=== PATIENT | female | born 1960 | race Caucasian/White ===

== ENCOUNTER 2017-07-31 06:40 | Observation (INO) | payer MEDICAID, SELFPAY ==
[~2017-07-31] VITALS: Ht 162.6 cm; Wt 63.6 kg
[2017-07-31] MEDS ORDERED: ALBU83IN INH (06:51)
[2017-07-31 07:57] LABS: BASO # 0.1 10^3/uL (0.0-0.2); BASO % 0.8 % (0.0-1.0); EOS # 0.2 10^3/uL (0.0-0.50); EOS % 2.5 % (0.0-3.0); IMMATURE GRANULOCYTE % 0.4 % (0-0); LYMPH # 1.5 10^3/uL (1.5-4.5); MEAN CORPUSCULAR HEMOGLOBIN 34.6 pg (27.0-33.0); MEAN CORPUSCULAR VOLUME 104.8 fl (80.0-96.0); MONO # 0.6 10^3/uL (0.0-0.8); MONO % 8.8 % (0.0-5.0); NEUTROPHILS # 4.8 10^3/uL (1.8-7.7); NEUTROPHILS % 66.5 % (36.0-66.0); PLATELET COUNT, AUTOMATED 229 10^3/uL (150-450); RED CELL DISTRIBUTION WIDTH 13.6 % (11.5-14.5); WHITE BLOOD COUNT 7.2 10^3/uL (4.0-10.0)
[2017-07-31] MEDS: IPRATROPIUM 0.5MG/ALBUTEROL 2.5MG INH SOL UD 3ML (DUONEB)(J7620) NEB PRN ×3 (07:58→09:00)
[2017-07-31] MEDS ORDERED: methylPREDNISolone INJ 125 MG/2 ML VIAL (J2930) IV ONE (08:00)
[2017-07-31 08:09] LABS: ANION GAP 6 MEQ/L (8-16); BLOOD UREA NITROGEN 6 MG/DL (7-18); CALCIUM LEVEL 9.2 MG/DL (8.5-10.1); CARBON DIOXIDE LEVEL 32 MEQ/L (21-32); CHLORIDE LEVEL 103 MEQ/L (98-107); GLOMERULAR FILTRATION RATE > 60.0 (>51); GLUCOSE, FASTING 120 MG/DL (70-105); POTASSIUM SERUM 4.3 MEQ/L (3.5-5.1); SODIUM LEVEL 141 MEQ/L (136-145)
[2017-07-31 08:15] LABS: ABG BASE EXCESS 4.5 (-2.0-2.0); ABG HCO3 30.7 MEQ/L (22.0-26.0); ABG PARTIAL PRESSURE CO2 51.4 mmHg (35.0-45.0); ABG PARTIAL PRESSURE O2 68.9 mmHg (75.0-100.0); ABG STANDARD HCO3 28.5 MEQ/L (22.0-26.0); ABG TOTAL CO2 32.3 MEQ/L (22.0-29.0); ABG pH (ARTERIAL) 7.394 UNITS (7.350-7.450)
--- NOTE | 2017-07-31 09:02 | REP ---
CHEST, SINGLE VIEW: There is no evidence of acute infiltrate. No pleural effusion is seen. The heart is normal in size. The mediastinal silhouette is unremarkable. The visualized osseous structures are intact. IMPRESSION: No acute pulmonary disease. Signed by Emmanuel Barajas MD 07/31/2017 05:19 P
[2017-07-31] MEDS ORDERED: GUAI1TAB PO (09:23)
[2017-07-31] MEDS ORDERED: ALEV220T26 PO (09:23)
[2017-07-31] MEDS ORDERED: OXAZEPAM 10 MG CAP PO PRN (10:30)
[2017-07-31] MEDS ORDERED: ONDANSETRON 4MG/2ML VIAL (J2405) IV PRN (10:30)
[2017-07-31] MEDS ORDERED: IPRATROPIUM 0.5MG/ALBUTEROL 2.5MG INH SOL UD 3ML (DUONEB)(J7620) NEB PRN (10:30)
[2017-07-31] MEDS ORDERED: ACETAMINOPHEN TAB 650MG DOSE (2X325MG) PO PRN (10:30)
[2017-07-31 10:43] LABS: ALBUMIN 4.2 GM/DL (3.2-5.2); ALBUMIN/GLOBULIN RATIO 1.45 (1.00-1.93); ALKALINE PHOSPHATASE 78 U/L (45-117); ALT/SGPT 29 U/L (12-78); AST/SGOT 23 U/L (15-37); BILIRUBIN,DIRECT 0.2 MG/DL (0.0-0.2); BILIRUBIN,TOTAL 0.8 MG/DL (0.2-1.0); TOTAL PROTEIN 7.1 GM/DL (6.4-8.2)
--- NOTE | 2017-07-31 10:55 | HPE ---
DATE OF ADMISSION: 07/31/2017 PRIMARY CARE PROVIDER: Dr. Umaña HISTORY OF PRESENT ILLNESS: This patient is a 57-year-old female with the past medical history significant for asthma. She presented to [facility] on 07/31/2017 for worsening shortness of breath. The patient stated 3 days ago, the patient had worsening of breathing. The patient was noted to have increased cough, difficulty getting air in and out of her lungs. The patient also noted starting having brownish/greenish sputum production. Denied any fever or chills. The patient did noticed a right-sided chest pain. The pain is located on the right just medial to the armpit. The pain is achy and has been persistent for the past few days. The pain has no radiation, worsening with cough. Deep breathing does not affect the pain intensity. The pain can be reproduced by pressure to the area. 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 PAST MEDICAL HISTORY: Asthma. PAST SURGICAL HISTORY: Dilation and curettage. ALLERGIES: No known drug allergies. HOME MEDICATIONS: Albuterol inhalation three times a day as needed. SOCIAL HISTORY: The patient smokes one pack daily since 15 years old. The patient drinks rum and Coke at leas 2-3 glasses every day. The patient used to use cocaine in the 80s. REVIEW OF SYSTEMS: General: No fever. No chills. HEENT: No visual or auditory changes. Cardiovascular: The patient still complaining about achy mild chest pain right below the right arm pit. This has been persistent for the past few days. The patient does complain about palpitations at this moment. Respiratory: Increased shortness of breath for the past 3 days associated with sputum production. History of asthma. GI: No nausea. No vomiting. No abdominal pain. Musculoskeletal: Denies any other muscle pain or joint pain. Neurological: Denies any numbness or tingling. OBJECTIVE: VITAL SIGNS: Temperature is 98.1, pulse 106, respirations 22, blood pressure 121/58, pulse ox is 93% with 2 liters nasal cannula. GENERAL: Mild distress secondary to persistent shortness of breath. Alert and oriented times three. HEENT: Positive accessory muscle use. Normocephalic, atraumatic. CARDIOVASCULAR: Tachycardic. Positive S1, S2. LUNGS: Positive expiratory wheezes bilaterally. No crackles. ABDOMEN: Soft, nontender, nondistended. Bowel sounds present. No rebound. No guarding. EXTREMITIES: No edema. No sign of cyanosis. NEURO: Sensation to fine touch grossly intact. Muscle strength 5/5. LABORATORY DATA: WBC 7, hemoglobin 14.5, hematocrit 43.9, platelet count is 229. Sodium 141, potassium 4.3, chloride 103, carbon dioxide 32, BUN 6, creatinine 0.6. GFR greater than 60, fasting glucose 120, lactic acid 0.6, calcium 9.2, troponin I is less than 0.02, TSH 1. 23. ABG shows a pH of 7.394, pCO2 51.4, pO2 68.9, SGOT 30.7. Microbiology: Blood cultures pending times two. Imaging Study: Chest x-ray showed no acute pulmonary disease. ASSESSMENT/PLAN: 1. Acute respiratory distress: The patient admitted to medical/surgical floor on an inpatient status. The patient's respiratory distress is most likely secondary to asthma exacerbation. The patient received multiple rounds of breathing treatments. During examination, the patient still has significant bilateral respiratory wheezes. Continue IV steroids. Continue breathing treatments as needed. I will followup with a respiratory panel. 2. Alcohol abuse: At baseline, patient used to drink rum and Coke at least two to three glasses every day. The patient with have Serax as needed for any type of withdrawal symptoms. The patient will be given multivitamin, folic acid and thiamine. 3. Tobacco abuse: The patient will be on nicotine patch. 4. Deep venous thrombosis prophylaxis on heparin. MTDD
[2017-07-31] MEDS: THIAMINE 100 MG TAB PO SCH (10:56)
[2017-07-31] MEDS: MULTIVITAMINS/MINERALS THERAP 1 TAB PO SCH (10:56)
[2017-07-31] MEDS: FOLIC ACID 1 MG TAB PO SCH (10:57)
[2017-07-31] MEDS: NICOTINE 21MG/24HR 1 EA TRANSDERMAL TD SCH (10:57)
[2017-07-31] MEDS: HEPARIN SOD (PORCINE) 5000 UNITS/ML VIAL SC SCH ×2 (14:00→20:59)
[2017-07-31 14:45] VITALS: BP 138/74
[2017-07-31] MEDS ORDERED: methylPREDNISolone INJ 125 MG/2 ML VIAL (J2930) IV SCH (20:00)
[2017-07-31] MEDS: predniSONE 20 MG TAB PO SCH (20:59)
[2017-07-31 22:00] VITALS: BP 140/74
[2017-08-01] MEDS: HEPARIN SOD (PORCINE) 5000 UNITS/ML VIAL SC SCH (05:07)
[2017-08-01 06:00] VITALS: BP 138/72
[2017-08-01 06:22] LABS: MEAN CORPUSCULAR HEMOGLOBIN 34.6 pg (27.0-33.0); MEAN CORPUSCULAR HGB CONC 33.1 g/dl (32.0-36.5); MEAN CORPUSCULAR VOLUME 104.5 fl (80.0-96.0); RED CELL DISTRIBUTION WIDTH 13.6 % (11.5-14.5); WHITE BLOOD COUNT 16.1 10^3/uL (4.0-10.0)
[2017-08-01 06:42] LABS: ANION GAP 2 MEQ/L (8-16); BLOOD UREA NITROGEN 9 MG/DL (7-18); CALCIUM LEVEL 9.1 MG/DL (8.5-10.1); CARBON DIOXIDE LEVEL 33 MEQ/L (21-32); CHLORIDE LEVEL 105 MEQ/L (98-107); CREATININE FOR GFR 0.57 MG/DL (0.55-1.02); GLOMERULAR FILTRATION RATE > 60.0 (>51); GLUCOSE, FASTING 129 MG/DL (70-105); MAGNESIUM LEVEL 2.2 MG/DL (1.8-2.4); POTASSIUM SERUM 4.1 MEQ/L (3.5-5.1); SODIUM LEVEL 140 MEQ/L (136-145)
[2017-08-01] MEDS: NICOTINE 21MG/24HR 1 EA TRANSDERMAL TD SCH (09:12)
[2017-08-01] MEDS: predniSONE 20 MG TAB PO SCH (09:12)
[2017-08-01] MEDS: MULTIVITAMINS/MINERALS THERAP 1 TAB PO SCH (09:13)
[2017-08-01] MEDS: FOLIC ACID 1 MG TAB PO SCH (09:13)
[2017-08-01] MEDS: THIAMINE 100 MG TAB PO SCH (09:13)
--- NOTE | 2017-08-01 09:17 | ECGEPIP ---
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
[2017-08-01] MEDS ORDERED: VITMTA PO (10:18)
[2017-08-01] MEDS ORDERED: FOLI1TAB4 PO (10:18)
[2017-08-01] MEDS ORDERED: THIA100TA PO (10:18)
[2017-08-01] MEDS ORDERED: PRED10TA2 PO (10:18)
[2017-08-01] MEDS ORDERED: NICO21PAT TD (10:18)
--- NOTE | 2017-08-01 20:41 | DSES ---
DATE OF ADMISSION: 07/31/2017 DATE OF DISCHARGE: 08/01/2017 PRIMARY CARE PROVIDER: Dr. Umaña DISCHARGE DIAGNOSES: 1. Asthma exacerbation secondary to human rhinovirus. 2. Human rhinovirus infection. 3. Alcohol abuse. 4. Tobacco abuse. 5. Leukocytosis secondary to steroid use. HOSPITALIZATION COURSE: The patient is a 57-year-old female who presented to [facility] on 07/31/2017 with progressive worsening of shortness of breath. The patient also noted to have increased wheeze with sputum production. The patient was determined to have asthma exacerbation. The patient was admitted to medical/surgical. The patient was started on as needed breathing treatments and IV steroids. The patient symptoms showed significant improvement. The patient did not require oxygen supplement. In the 24 hours after admission, on 08/01/2017, the patient is determined medically stable for discharge with recommendation to continue tapering steroids, and the patient is strongly recommended to decrease alcohol consumption and also smoking. The patient is instructed to followup with the primary care provider in 1 week. During the diagnostic workup, respiratory panel was ordered. The results came back positive for human rhinovirus/enterovirus. OBJECTIVE: VITAL SIGNS: Temperature is 97.6, pulse 106, respiratory rate is 19, blood pressure is 138/72, pulse oximetry is 98% on room air. LABORATORY DATA: WBC 16.1, hemoglobin 14.5, hematocrit 43.8, platelet count is 239. Sodium is 140, potassium 4.1, chloride is 105, carbon dioxide 33, BUN 9, creatinine 0.57, GFR greater than 60, fasting glucose 129, calcium is 9.1, magnesium 2.2, TSH is 1.23. AST 23, ALT 29, alkaline phosphatase 78, troponin I is less than 0.02, total protein 7.1, albumin 4.2. Microbiology: Blood cultures, preliminary results shows no growth after 24 hours times two sets. Respiratory panel is positive for human rhinovirus/enterovirus. IMAGING STUDIES: Chest x-ray showed no acute pulmonary disease. DISCHARGE MEDICATIONS: - folic acid 1 mg by mouth daily - multivitamin one tablet by mouth daily - thiamine 100 mg by mouth daily - prednisone tapering dose - nicotine patch transdermal daily DISCHARGE INSTRUCTIONS: Discontinue line. Discharge home. Activity as tolerated. Diet as tolerated. Recommend patient to decrease the amount of alcohol consumption and tobacco use. The patient is instructed to finish the steroid taper. The patient is instructed to followup with the primary care provider, Dr. Umaña, in 1 week. Discharge condition: Fair. Discharge time: Greater than 30 minutes.
== END 2017-08-01 11:20 | disposition home or self-care (01) ==
LOC: M ED 06:40 → M ED INP 10:18 → M MSPAV 14:26
PROVIDERS: ADMIT Internal Medicine; ATTEND Internal Medicine
DX: J45.901 Unspecified asthma with (acute) exacerbation (principal); B34.8 Other viral infections of unspecified site; F10.10 Alcohol abuse, uncomplicated; F17.210 Nicotine dependence, cigarettes, uncomplicated; D72.829 Elevated white blood cell count, unspecified; Z79.51 Long term (current) use of inhaled steroids; Z79.52 Long term (current) use of systemic steroids; Z79.899 Other long term (current) drug therapy
CPT/HCPCS: 36415; 36600; 71010; 80048; 80076; 82550; 82553; 82803; 83605; 83735; 84443; 85025; 85027; 87040; 87070; 87077; 87186; 87205; 87486; 87581; 87633; 87798; 93005; 93041; 94640; 96374; 99285; J2930

== ENCOUNTER 2018-12-23 15:45 | Emergency (ER) | payer MEDICAID, OTHER ==
[~2018-12-23] VITALS: Ht 157.5 cm; Wt 61.4 kg
[~2018-12-23 15:45] MED LIST: ALBU83IN INH; ALEV220T26 PO; FOLI1TAB11 PO; GUAI1TAB PO; NICO21PAT TD; PRED10TA2 PO; THIA100TA PO; VITMTA PO
[2018-12-23] MEDS ORDERED: FLUT1INH2 INH (16:27)
[2018-12-23] MEDS ORDERED: NS 1,000 ML IV SCH (17:05)
[2018-12-23] MEDS ORDERED: ASPIRIN 81 MG CHEW TABLET PO ONE (17:15)
[2018-12-23] MEDS ORDERED: GI COCKTAIL 50ML BTL(HYOSCYAMINE/MAALOX/LIDOCAINE VISCOUS)(1:3:1) PO ONE (17:15)
--- NOTE | 2018-12-23 17:33 | REP ---
Chest two views HISTORY: Chest pain Comparison: 02/18/2015 The lungs are clear. The heart is normal in size. The pulmonary vasculature is normal in appearance. The bony structure is intact. IMPRESSION: No acute disease. Electronically Signed by Edmond Bond MD 12/23/2018 05:25 P
[2018-12-23 17:35] LABS: BASO # 0.1 10^3/uL (0.0-0.2); BASO % 0.7 % (0.0-1.0); EOS # 0.2 10^3/uL (0.0-0.50); EOS % 1.9 % (0.0-3.0); HEMATOCRIT 41.1 % (36.0-47.0); HEMOGLOBIN 13.4 g/dl (12.0-15.5); LYMPH # 1.9 10^3/uL (1.5-4.5); LYMPH % 20.9 % (24.0-44.0); MEAN CORPUSCULAR HEMOGLOBIN 35.4 pg (27.0-33.0); MEAN CORPUSCULAR HGB CONC 32.6 g/dl (32.0-36.5); MEAN CORPUSCULAR VOLUME 108.7 fl (80.0-96.0); MONO # 0.9 10^3/uL (0.0-0.8); MONO % 9.6 % (0.0-5.0); NEUTROPHILS % 66.6 % (36.0-66.0); PLATELET COUNT, AUTOMATED 326 10^3/uL (150-450); RED BLOOD COUNT 3.78 10^6/uL (4.00-5.40)
[2018-12-23 17:47] LABS: INR 1.06; PROTHROMBIN TIME 13.9 SECONDS (12.1-14.4)
[2018-12-23 18:15] LABS: ALBUMIN 3.3 GM/DL (3.2-5.2); ALT/SGPT 23 U/L (12-78); BILIRUBIN,DIRECT 0.2 MG/DL (0.0-0.2); BILIRUBIN,TOTAL 0.7 MG/DL (0.2-1.0); BLOOD UREA NITROGEN 11 MG/DL (7-18); CALCIUM LEVEL 8.3 MG/DL (8.5-10.1); CARBON DIOXIDE LEVEL 34 MEQ/L (21-32); CHLORIDE LEVEL 102 MEQ/L (98-107); CK-MB VALUE MASS < 1.0 NG/ML (<3.6); CPK CREATINE PHOSPHOKINASE 45 U/L (26-192); CREATININE FOR GFR 0.58 MG/DL (0.55-1.30); GLOMERULAR FILTRATION RATE > 60.0 (>51); GLUCOSE, FASTING 98 MG/DL (70-100); MB/CK RELATIVE INDEX 2.22 (< OR =4); NT-PRO BNP 450 PG/ML (<125); SODIUM LEVEL 141 MEQ/L (136-145); TOTAL PROTEIN 6.5 GM/DL (6.4-8.2); TROPONIN I 0.02 NG/ML (< 0.10)
[2018-12-23 18:45] VITALS: BP 130/80
--- NOTE | 2018-12-23 21:03 | ECGEPIP ---
Stationary ECG Study [facility] - ED Test Date: 2018-12-23 Pat Name: CLARA GUZMAN Department: Room: - Gender: F Sample Hand: sahra : 1960 Requested By: Brodie Ochoa Order Number: [id number] Reading MD: Elida Skinner Measurements Intervals [place] Rate: 99 P: 85 SD: 137 QRS: 51 QRSD: 84 T: 61 QT: 341 QTc: 439 Interpretive Statements SINUS RHYTHM NSTTW ABNORMALITY DECREASED RATE 07/31/17 Electronically Signed On 12-23-2018 21:03:42 EST by Elida Skinner
== END 2018-12-23 19:04 | disposition home or self-care (01) ==
LOC: M ED 15:45
DX: R07.89 Other chest pain (principal); R60.0 Localized edema; R06.02 Shortness of breath; I10 Essential (primary) hypertension; J98.4 Other disorders of lung; F17.200 Nicotine dependence, unspecified, uncomplicated; Z91.040 Latex allergy status

== ENCOUNTER → 2019-05-15 | Outpatient (CLI) | payer OTHER ==
[~2019-05-15] MED LIST changes: +FLUT1INH2 INH
--- NOTE | 2019-05-16 01:44 | REP ---
Clinical: Lung screening. History nicotine dependence. Comparison: 02/18/2015 Technique: Axial low-dose noncontrast images from the thoracic inlet to the upper abdomen using lung screening technique. Findings: The lung keller are well-aerated. No consolidation, significant nodule or mass lesion is appreciated. 4 mm noncalcified nodule in the periphery of the left lower lobe (image 74) remains stable compared to 2015. No pleural effusion/reaction or pneumothorax. Tracheobronchial tree is patent. Mediastinum demonstrates mild atherosclerotic changes of the coronary arteries without cardiomegaly. Impression: Lung-RADS category II. No significant nodule or suspicious abnormality. Management recommendations include annual low-dose CT evaluation. Electronically Signed by Hany Meehan MD 05/16/2019 01:36 A
== END ==
LOC: M RAD 14:15
PROVIDERS: ATTEND Physician Assistant
DX: Z12.2 Encounter for screening for malignant neoplasm of respiratory organs (principal); F17.218 Nicotine dependence, cigarettes, with other nicotine-induced disorders

== ENCOUNTER → 2020-07-01 | Outpatient (REF) | payer OTHER ==
[2020-07-06 10:08] LABS: A1A FOR PHENOTYPE 154 mg/dL (101-187)
== END ==
LOC: M LAB REF 17:14
PROVIDERS: ATTEND Physician Assistant
DX: J44.9 Chronic obstructive pulmonary disease, unspecified (principal)

== ENCOUNTER → 2021-07-28 | Outpatient (CLI) | payer OTHER ==
--- NOTE | 2021-07-28 12:16 | REP ---
INDICATION: ABNORMAL FINDING OF LUNG FIELD. COMPARISON: Prior CT studies include April 21, 2021, January 06, 2021, June 25, 2020, May 15, 2019, and February 18, 2015. TECHNIQUE: Helical scanning is acquired. 3 mm axial images are generated. Coronal and sagittal MPR and coronal MIP images are generated. 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 On axial CT images there is no evidence of pleural or pericardial effusion. No hilar or mediastinal mass or adenopathy is observed. Normal adrenal glands are seen. Some vascular calcification is noted. The visualized upper abdominal structures are unremarkable. There is a stable noncalcified 6 mm pulmonary nodule in the left lower lobe visible on page 73 of 109 in series 3 of today's study. This is unchanged from all the prior studies dating back to 2014 and is benign. The recently identified infiltrate in the right lower lobe has resolved. This consistent with inflammatory change. No new infiltrate is seen. No new pulmonary nodule is seen. No lung mass is observed. No endotracheal abnormality is seen. Bone window settings show no bony destructive lesion. IMPRESSION: No acute cardiopulmonary disease. <Electronically signed by Devang Dubois > 07/28/21 1216
== END ==
LOC: M PLAIMG 11:16
PROVIDERS: ATTEND Physician Assistant
DX: R91.8 Other nonspecific abnormal finding of lung field (principal); F17.218 Nicotine dependence, cigarettes, with other nicotine-induced disorders

== ENCOUNTER 2022-02-02 14:45 | Inpatient (IN) | payer OTHER ==
[~2022-02-02] VITALS: Ht 162.6 cm; Wt 74.6 kg
[2022-02-02] MEDS ORDERED: dexameTHASONE 20MG/5ML VIAL (J1100 PER 1MG) IV ONE (16:15)
[2022-02-02] MEDS: IPRATROPIUM 0.5MG/ALBUTEROL 2.5MG INH SOL UD 3ML (DUONEB) NEB SCH ×3 (16:23→16:56)
[2022-02-02 16:25] LABS: BASO # 0.1 10^3/uL (0.0-0.2); EOS # 0.1 10^3/uL (0.0-0.5); EOS % 1.5 % (0.0-3.0); HEMATOCRIT 39.9 % (36.0-47.0); HEMOGLOBIN 12.8 g/dl (12.0-15.5); LYMPH # 1.5 10^3/uL (1.5-5.0); LYMPH % 18.3 % (24.0-44.0); MEAN CORPUSCULAR HEMOGLOBIN 34.9 pg (27.0-33.0); MEAN CORPUSCULAR HGB CONC 32.1 g/dl (32.0-36.5); MEAN CORPUSCULAR VOLUME 108.7 fl (80.0-96.0); MONO # 0.7 10^3/uL (0.0-0.8); MONO % 8.8 % (2.0-8.0); NEUTROPHILS # 5.7 10^3/uL (1.5-8.5); PLATELET COUNT, AUTOMATED 238 10^3/uL (150-450); RED BLOOD COUNT 3.67 10^6/uL (4.00-5.40); WHITE BLOOD COUNT 8.1 10^3/uL (4.0-10.0)
[2022-02-02 16:48] LABS: CK-MB VALUE MASS 1.2 NG/ML (<3.6); MB/CK RELATIVE INDEX 2.14 (< OR =4)
[2022-02-02] MEDS ORDERED: FUROSEMIDE 40MG/4ML VIAL (J1940) IV ONE (17:25)
[2022-02-02] MEDS ORDERED: guaiFENesin SYRUP 200MG 10ML UDC PO PRN (18:10)
[2022-02-02] MEDS ORDERED: ARNU1INH3 INH (18:45)
[2022-02-02] MEDS ORDERED: ALBU8.5H INH (18:45)
[2022-02-02] MEDS ORDERED: STIO1AER INH (18:45)
[2022-02-02] MEDS ORDERED: HOME MED LIST COMPLETE! XX SCH (18:50)
[2022-02-02 20:20] VITALS: BP 132/63
[2022-02-02] MEDS: HEPARIN SOD (PORCINE) 5000UNITS/ML 1ML VIAL/SYRINGE SC SCH ×2 (21:00→22:00)
[2022-02-02] MEDS: cefTRIAXone SOD 1 GM in D5W MINI-BAG PLUS 50 ML IV SCH (22:00)
[2022-02-02] MEDS: DOXYCYCLINE HYCLATE 100 MG in D5W MINI-BAG PLUS 100 ML IV SCH (22:59)
[2022-02-03] VITALS (7 sets, daily range): BP systolic 110–137; BP diastolic 56–83
[2022-02-03 05:40] LABS: HEMATOCRIT 42.3 % (36.0-47.0); HEMOGLOBIN 13.5 g/dl (12.0-15.5); MEAN CORPUSCULAR HEMOGLOBIN 34.6 pg (27.0-33.0); MEAN CORPUSCULAR HGB CONC 31.9 g/dl (32.0-36.5); MEAN CORPUSCULAR VOLUME 108.5 fl (80.0-96.0); PLATELET COUNT, AUTOMATED 254 10^3/uL (150-450); WHITE BLOOD COUNT 9.4 10^3/uL (4.0-10.0)
[2022-02-03 06:00] LABS: BLOOD UREA NITROGEN 12 MG/DL (7-18); CALCIUM LEVEL 8.7 MG/DL (8.8-10.2); CARBON DIOXIDE LEVEL 37 MEQ/L (21-32); CHLORIDE LEVEL 101 MEQ/L (98-107); CREATININE FOR GFR 0.55 MG/DL (0.55-1.30); GLOMERULAR FILTRATION RATE > 60.0 (>45); GLUCOSE, FASTING 131 MG/DL (70-100); POTASSIUM SERUM 4.7 MEQ/L (3.5-5.1); SODIUM LEVEL 139 MEQ/L (136-145)
[2022-02-03 08:44] LABS: NT-PRO BNP 1631 PG/ML (<125)
[2022-02-03] MEDS: FUROSEMIDE 40MG/4ML VIAL (J1940) IV SCH ×2 (08:47→16:59)
[2022-02-03] MEDS: HEPARIN SOD (PORCINE) 5000UNITS/ML 1ML VIAL/SYRINGE SC SCH ×2 (08:47→20:13)
[2022-02-03] MEDS: NICOTINE 14 MG/24 HR TRANSDERMAL TD SCH ×2 (08:48→08:51)
[2022-02-03] MEDS: DOXYCYCLINE HYCLATE 100 MG in D5W MINI-BAG PLUS 100 ML IV SCH ×2 (09:34→21:29)
[2022-02-03] MEDS: cefTRIAXone SOD 1 GM in D5W MINI-BAG PLUS 50 ML IV SCH (20:13)
[2022-02-04] MEDS ORDERED: ACETAMINOPHEN TAB 650MG DOSE (2X325MG) PO ONE (03:45)
[2022-02-04 04:13] VITALS: BP 118/56
[2022-02-04 05:39] LABS: HEMATOCRIT 42.6 % (36.0-47.0); HEMOGLOBIN 13.4 g/dl (12.0-15.5); MEAN CORPUSCULAR HEMOGLOBIN 34.8 pg (27.0-33.0); MEAN CORPUSCULAR HGB CONC 31.5 g/dl (32.0-36.5); MEAN CORPUSCULAR VOLUME 110.6 fl (80.0-96.0); PLATELET COUNT, AUTOMATED 251 10^3/uL (150-450); RED BLOOD COUNT 3.85 10^6/uL (4.00-5.40)
[2022-02-04 06:00] LABS: BLOOD UREA NITROGEN 18 MG/DL (7-18); CALCIUM LEVEL 8.8 MG/DL (8.8-10.2); CARBON DIOXIDE LEVEL 41 MEQ/L (21-32); CHLORIDE LEVEL 98 MEQ/L (98-107); CREATININE FOR GFR 0.59 MG/DL (0.55-1.30); GLOMERULAR FILTRATION RATE > 60.0 (>45); GLUCOSE, FASTING 95 MG/DL (70-100); POTASSIUM SERUM 3.9 MEQ/L (3.5-5.1); SODIUM LEVEL 140 MEQ/L (136-145)
[2022-02-04 07:35] VITALS: BP 118/58
[2022-02-04] MEDS: DOXYCYCLINE HYCLATE 100 MG in D5W MINI-BAG PLUS 100 ML IV SCH (08:45)
[2022-02-04] MEDS: FUROSEMIDE 40MG/4ML VIAL (J1940) IV SCH (08:46)
[2022-02-04] MEDS: HEPARIN SOD (PORCINE) 5000UNITS/ML 1ML VIAL/SYRINGE SC SCH (08:46)
[2022-02-04] MEDS: NICOTINE 14 MG/24 HR TRANSDERMAL TD SCH (08:47)
[2022-02-04] MEDS ORDERED: CEFD300C41 PO (08:52)
[2022-02-04] MEDS ORDERED: MUCI1TAB16 PO (08:52)
[2022-02-04] MEDS ORDERED: DOXY-350 PO (08:52)
[2022-02-04] MEDS ORDERED: FURO20TA2 PO (08:52)
== END 2022-02-04 14:03 | disposition home or self-care (01) | DRG 194 ==
LOC: M ED 14:45 → M ED INP 17:37 → ENRESERV 18:39 → M PCU 20:20
PROVIDERS: ADMIT Internal Medicine; ATTEND Internal Medicine
DX: I50.9 Heart failure, unspecified (principal); Z99.81 Dependence on supplemental oxygen; F17.210 Nicotine dependence, cigarettes, uncomplicated; F10.11 Alcohol abuse, in remission; Z79.899 Other long term (current) drug therapy; Z91.040 Latex allergy status; Z91.14 Patient's other noncompliance with medication regimen; J44.1 Chronic obstructive pulmonary disease with (acute) exacerbation

== ENCOUNTER → 2022-03-30 | Outpatient (CLI) | payer OTHER ==
[~2022-03-30] MED LIST changes: +ALBU2.5V10 INH; +ALBU8.5H INH; -ALBU83IN INH; +ARNU1INH3 INH; +CEFD300C41 PO; +DOXY-350 PO; +FURO20TA2 PO; +MUCI1TAB16 PO; +STIO1AER INH
== END ==
LOC: M SLEEP 20:00
PROVIDERS: ATTEND Physician Assistant
DX: G47.33 Obstructive sleep apnea (adult) (pediatric) (principal)

== ENCOUNTER → 2022-05-12 | Outpatient (CLI) | payer OTHER | LOC: M RAD 09:45 | PROVIDERS: ATTEND Physician Assistant | DX: R91.8 Other nonspecific abnormal finding of lung field (principal) ==

== ENCOUNTER → 2022-06-15 | Outpatient (CLI) | payer OTHER | LOC: M SLEEP 20:00 | PROVIDERS: ATTEND Physician Assistant | DX: G47.33 Obstructive sleep apnea (adult) (pediatric) (principal) ==

== ENCOUNTER → 2022-08-04 | Outpatient (CLI) | payer OTHER ==
[2022-08-04 11:46] LABS: ALBUMIN 4.2 GM/DL (3.2-5.2); BLOOD UREA NITROGEN 5 MG/DL (7-18); CALCIUM LEVEL 9.9 MG/DL (8.8-10.2); CARBON DIOXIDE LEVEL 36 MEQ/L (21-32); CHLORIDE LEVEL 96 MEQ/L (98-107); CHOLESTEROL LEVEL 209 MG/DL (<200); CHOLESTEROL RISK RATIO 4.976 (<5); CREATININE FOR GFR 0.54 MG/DL (0.55-1.30); GLOMERULAR FILTRATION RATE > 60.0 (>45); GLUCOSE, FASTING 99 MG/DL (70-100); HDL CHOLESTEROL 42 MG/DL (>40); LDL CHOLESTEROL 145 MG/DL (<100); MAGNESIUM LEVEL 2.3 MG/DL (1.8-2.4); NON-HDL-C 167 MG/DL; NT-PRO BNP 27 PG/ML (<125); PHOSPHORUS LEVEL 2.7 MG/DL (2.5-4.9); POTASSIUM SERUM 4.3 MEQ/L (3.5-5.1); SODIUM LEVEL 133 MEQ/L (136-145); TRIGLYCERIDES LEVEL 111 MG/DL (<150)
== END ==
LOC: M LAB 09:55
PROVIDERS: ATTEND Internal Medicine Cardiovascular Disease
DX: I50.32 Chronic diastolic (congestive) heart failure (principal); I25.10 Atherosclerotic heart disease of native coronary artery without angina pectoris

== ENCOUNTER 2023-02-14 15:57 | Emergency (ER) | payer OTHER ==
[~2023-02-14] VITALS: Ht 157.5 cm; Wt 76.5 kg
[~2023-02-14 15:57] MED LIST changes: -DOXY-350 PO; +DOXY-444 PO
[2023-02-14] MEDS ORDERED: methylPREDNISolone 125MG 2ML VIAL IV ONE (16:45)
[2023-02-14] MEDS ORDERED: IPRATROPIUM 0.5MG/ALBUTEROL 2.5MG INH SOL UD 3ML (DUONEB) NEB ONE (16:45)
[2023-02-14 17:11] LABS: HEMATOCRIT 39.2 % (36.0-47.0); HEMOGLOBIN 13.4 g/dl (12.0-15.5); MEAN CORPUSCULAR HEMOGLOBIN 35.4 pg (27.0-33.0); MEAN CORPUSCULAR HGB CONC 34.2 g/dl (32.0-36.5); MEAN CORPUSCULAR VOLUME 103.7 fl (80.0-96.0); PLATELET COUNT, AUTOMATED 255 10^3/uL (150-450); RED BLOOD COUNT 3.78 10^6/uL (4.00-5.40); WHITE BLOOD COUNT 9.4 10^3/uL (4.0-10.0)
[2023-02-14 17:36] LABS: ALKALINE PHOSPHATASE 96 U/L (46-116); ALT/SGPT 19 U/L (7.0-40); AST/SGOT 15 U/L (<34); BILIRUBIN,DIRECT 0.4 MG/DL (<0.4); BILIRUBIN,TOTAL 1.1 MG/DL (0.3-1.2); BLOOD UREA NITROGEN < 5 MG/DL (9-23); CALCIUM LEVEL 9.1 MG/DL (8.3-10.6); CARBON DIOXIDE LEVEL 34 MMOL/L (20-31); CHLORIDE LEVEL 98 MMOL/L (98-107); CREATININE FOR GFR 0.52 MG/DL (0.55-1.30); GLOMERULAR FILTRATION RATE > 60.0 (>45); GLUCOSE, FASTING 97 MG/DL (74-106); POTASSIUM SERUM 3.9 MMOL/L (3.5-5.1); SODIUM LEVEL 136 MMOL/L (136-145); TOTAL PROTEIN 6.8 G/DL (5.7-8.2)
[2023-02-14] MEDS ORDERED: AUGMENTIN 875 MG TAB PO ONE (18:50)
[2023-02-14 18:57] VITALS: O2SAT 87
[2023-02-14 20:31] VITALS: BP 151/80
== END 2023-02-14 21:08 | disposition home or self-care (01) ==
LOC: M ED 15:57
DX: J44.1 Chronic obstructive pulmonary disease with (acute) exacerbation (principal); I50.20 Unspecified systolic (congestive) heart failure; Z99.81 Dependence on supplemental oxygen; Z91.040 Latex allergy status
CPT/HCPCS: 71045; 80048; 80076; 83880; 85027; 87070; 87077; 87184; 87185; 87205; 87486; 87581; 87633; 87798; 87880; 93005; 93041; 94640; 94760; 96374; 99285; J2930

== ENCOUNTER 2023-07-22 13:16 | Emergency (ER) | payer MEDICAID, MEDICARE, OTHER ==
[~2023-07-22] VITALS: Ht 160 cm; Wt 75.0 kg
[2023-07-22] MEDS ORDERED: GABA-1171 (13:25)
[2023-07-22] MEDS ORDERED: ATOR40TA75 (13:25)
[2023-07-22] MEDS ORDERED: QVAR80AE8 (13:25)
[2023-07-22 13:37] VITALS: TEMP 98.6
[2023-07-22] MEDS: methylPREDNISolone 125MG 2ML VIAL IV ONE (14:10)
[2023-07-22 14:17] LABS: BASO # 0.1 10^3/uL (0.0-0.2); BASO % 0.7 % (0.0-1.0); EOS # 0.2 10^3/uL (0.0-0.5); EOS % 1.7 % (0.0-3.0); HEMATOCRIT 41.2 % (36.0-47.0); HEMOGLOBIN 13.7 g/dl (12.0-15.5); LYMPH # 1.5 10^3/uL (1.5-5.0); LYMPH % 17.3 % (24.0-44.0); MEAN CORPUSCULAR HEMOGLOBIN 34.7 pg (27.0-33.0); MEAN CORPUSCULAR HGB CONC 33.3 g/dl (32.0-36.5); MEAN CORPUSCULAR VOLUME 104.3 fl (80.0-96.0); MONO # 0.7 10^3/uL (0.0-0.8); MONO % 7.8 % (2.0-8.0); NEUTROPHILS # 6.4 10^3/uL (1.5-8.5); PLATELET COUNT, AUTOMATED 263 10^3/uL (150-450); RED BLOOD COUNT 3.95 10^6/uL (4.00-5.40); WHITE BLOOD COUNT 8.8 10^3/uL (4.0-10.0)
[2023-07-22 14:27] LABS: ALBUMIN 3.7 G/DL (3.2-5.2); ALKALINE PHOSPHATASE 68 U/L (46-116); ALT/SGPT 26 U/L (7.0-40); AST/SGOT 11 U/L (<34); BILIRUBIN,DIRECT 0.2 MG/DL (<0.4); BILIRUBIN,TOTAL 0.6 MG/DL (0.3-1.2); BLOOD UREA NITROGEN 5 MG/DL (9-23); CALCIUM LEVEL 8.8 MG/DL (8.3-10.6); CARBON DIOXIDE LEVEL 33 MMOL/L (20-31); CHLORIDE LEVEL 100 MMOL/L (98-107); CK-MB VALUE MASS < 1.0 NG/ML (<3.6); CPK CREATINE PHOSPHOKINASE 48 U/L (34-145); CREATININE FOR GFR 0.48 MG/DL (0.55-1.30); GLOMERULAR FILTRATION RATE > 60.0 (>45); GLUCOSE, FASTING 143 MG/DL (74-106); MB/CK RELATIVE INDEX 2.08 (< OR =4); POTASSIUM SERUM 4.1 MMOL/L (3.5-5.1); SODIUM LEVEL 137 MMOL/L (136-145); TOTAL PROTEIN 6.5 G/DL (5.7-8.2)
[2023-07-22 14:29] LABS: FREE T4 0.86 NG/DL (0.89-1.76); THYROID STIMULATING HORMONE 2.172 uIU/ML (0.55-4.78)
[2023-07-22 15:45] VITALS: BP 106/58; O2SAT 95
[2023-07-22] MEDS ORDERED: PRED10TA2 PO (15:50)
== END 2023-07-22 16:00 | disposition home or self-care (01) ==
LOC: M ED 13:16
DX: J44.1 Chronic obstructive pulmonary disease with (acute) exacerbation (principal); I50.22 Chronic systolic (congestive) heart failure; F17.210 Nicotine dependence, cigarettes, uncomplicated; Z91.040 Latex allergy status; Z79.51 Long term (current) use of inhaled steroids; Z79.899 Other long term (current) drug therapy
CPT/HCPCS: 71045; 80048; 80076; 82550; 82553; 83605; 83880; 84439; 84443; 85025; 87040; 87486; 87581; 87633; 87798; 93005; 93041; 94760; 96374; 99285; J2930

== ENCOUNTER 2023-08-13 13:24 | Emergency (ER) | payer MEDICARE, MEDICAID ==
[~2023-08-13] VITALS: Ht 157.5 cm; Wt 74.8 kg
[~2023-08-13 13:24] MED LIST changes: +ATOR40TA75; -CEFD300C41 PO; +CEFD300C42 PO; +GABA-1171; +QVAR80AE8
[2023-08-13 13:25] VITALS: TEMP 98.8
[2023-08-13] MEDS ORDERED: methylPREDNISolone 125MG 2ML VIAL IV ONE (14:10)
[2023-08-13] MEDS: IPRATROPIUM 0.5MG/ALBUTEROL 2.5MG INH SOL UD 3ML (DUONEB) NEB PRN ×2 (14:27→14:39)
[2023-08-13 14:45] LABS: BASO % 0.3 % (0.0-1.0); EOS % 0.3 % (0.0-3.0); HEMATOCRIT 42.8 % (36.0-47.0); HEMOGLOBIN 13.8 g/dl (12.0-15.5); LYMPH # 0.9 10^3/uL (1.5-5.0); LYMPH % 7.3 % (24.0-44.0); MEAN CORPUSCULAR HEMOGLOBIN 35.1 pg (27.0-33.0); MEAN CORPUSCULAR HGB CONC 32.2 g/dl (32.0-36.5); MEAN CORPUSCULAR VOLUME 108.9 fl (80.0-96.0); MONO # 0.5 10^3/uL (0.0-0.8); MONO % 4.4 % (2.0-8.0); NEUTROPHILS # 10.4 10^3/uL (1.5-8.5); NEUTROPHILS % 87.1 % (36.0-66.0); PLATELET COUNT, AUTOMATED 238 10^3/uL (150-450); RED BLOOD COUNT 3.93 10^6/uL (4.00-5.40)
[2023-08-13 15:08] LABS: BLOOD UREA NITROGEN 7 MG/DL (9-23); CALCIUM LEVEL 9.1 MG/DL (8.3-10.6); CARBON DIOXIDE LEVEL > 40.0 MMOL/L (20-31); CHLORIDE LEVEL 97 MMOL/L (98-107); CREATININE FOR GFR 0.53 MG/DL (0.55-1.30); GLOMERULAR FILTRATION RATE > 60.0 (>45); GLUCOSE, FASTING 135 MG/DL (74-106); POTASSIUM SERUM 4.4 MMOL/L (3.5-5.1); SODIUM LEVEL 138 MMOL/L (136-145)
[2023-08-13] MEDS ORDERED: PRED10TA2 PO (16:02)
[2023-08-13 16:24] VITALS: O2SAT 91
[2023-08-13 16:30] VITALS: BP 122/59
== END 2023-08-13 16:49 | disposition home or self-care (01) ==
LOC: M ED 13:24
DX: J44.1 Chronic obstructive pulmonary disease with (acute) exacerbation (principal); I50.9 Heart failure, unspecified; Z87.891 Personal history of nicotine dependence; Z79.899 Other long term (current) drug therapy; Z91.040 Latex allergy status
CPT/HCPCS: 71045; 80048; 83605; 83880; 85025; 87040; 87486; 87581; 87633; 87798; 93005; 93041; 94640; 94760; 96374; 99285; J2930

== ENCOUNTER 2023-10-05 09:30 | Observation (INO) | payer MEDICARE, MEDICAID ==
[~2023-10-05] VITALS: Ht 157.5 cm; Wt 72.5 kg
[~2023-10-05 09:30] MED LIST changes: +CEFD1CAP9 PO; -CEFD300C42 PO; -QVAR80AE8; +QVAR80AE8 INH
[2023-10-05] MEDS ORDERED: IPRATROPIUM 0.5MG/ALBUTEROL 2.5MG INH SOL UD 3ML (DUONEB) NEB PRN (09:40)
[2023-10-05] MEDS ORDERED: methylPREDNISolone 125MG 2ML VIAL IV ONE (09:40)
[2023-10-05 10:06] LABS: BASO # 0.1 10^3/uL (0.0-0.2); BASO % 0.7 % (0.0-1.0); EOS # 0.1 10^3/uL (0.0-0.5); EOS % 0.9 % (0.0-3.0); HEMATOCRIT 39.8 % (36.0-47.0); HEMOGLOBIN 12.6 g/dl (12.0-15.5); LYMPH # 1.4 10^3/uL (1.5-5.0); MEAN CORPUSCULAR HEMOGLOBIN 34.5 pg (27.0-33.0); MEAN CORPUSCULAR HGB CONC 31.7 g/dl (32.0-36.5); MONO # 0.6 10^3/uL (0.0-0.8); MONO % 6.7 % (2.0-8.0); NEUTROPHILS # 6.6 10^3/uL (1.5-8.5); NEUTROPHILS % 75.1 % (36.0-66.0); PLATELET COUNT, AUTOMATED 243 10^3/uL (150-450); RED BLOOD COUNT 3.65 10^6/uL (4.00-5.40); WHITE BLOOD COUNT 8.8 10^3/uL (4.0-10.0)
[2023-10-05 10:09] LABS: VENOUS BASE EXCESS 11.5 (-2.0-2.0); VENOUS HCO3 41.4 MMOL/L (23.0-27.0); VENOUS O2 SATURATION 68.7 % (60.0-80.0); VENOUS PARTIAL PRESSURE CO2 83.2 mmHg (38.0-50.0); VENOUS PH 7.315 UNITS (7.330-7.430); VENOUS STANDARD HCO3 34.5 MMOL/L
[2023-10-05 10:18] LABS: INR 1.03; PROTHROMBIN TIME 13.2 SECONDS (12.5-14.5)
[2023-10-05 10:36] LABS: CPK CREATINE PHOSPHOKINASE 24 U/L (34-145)
[2023-10-05 10:42] LABS: ALBUMIN 3.5 G/DL (3.2-5.2); ALKALINE PHOSPHATASE 62 U/L (46-116); ALT/SGPT 19 U/L (7.0-40); AST/SGOT 15 U/L (<34); BILIRUBIN,DIRECT 0.2 MG/DL (<0.4); BILIRUBIN,TOTAL 0.6 MG/DL (0.3-1.2); BLOOD UREA NITROGEN 6 MG/DL (9-23); CALCIUM LEVEL 9.1 MG/DL (8.3-10.6); CARBON DIOXIDE LEVEL > 40.0 MMOL/L (20-31); CHLORIDE LEVEL 94 MMOL/L (98-107); CK-MB VALUE MASS < 1.0 NG/ML (<3.6); CREATININE FOR GFR 0.53 MG/DL (0.55-1.30); GLOMERULAR FILTRATION RATE > 60.0 (>45); GLUCOSE, FASTING 169 MG/DL (74-106); MB/CK RELATIVE INDEX 4.16 (< OR =4); POTASSIUM SERUM 3.6 MMOL/L (3.5-5.1); SODIUM LEVEL 138 MMOL/L (136-145); THYROID STIMULATING HORMONE 3.199 uIU/ML (0.55-4.78); TOTAL PROTEIN 6.5 G/DL (5.7-8.2)
[2023-10-05 12:02] LABS: CK-MB VALUE MASS < 1.0 NG/ML (<3.6)
[2023-10-05 12:03] LABS: CPK CREATINE PHOSPHOKINASE 23 U/L (34-145); MB/CK RELATIVE INDEX 4.34 (< OR =4)
[2023-10-05 12:06] LABS: ABG BASE EXCESS 12.4 (-2.0-2.0); ABG HCO3 40.7 MMOL/L (22.0-26.0); ABG O2 SATURATION 94.6 % (95.0-99.0); ABG PARTIAL PRESSURE O2 68.5 mmHg (75.0-100.0); ABG STANDARD HCO3 36.1 MMOL/L. (22.0-26.0); ABG TOTAL CO2 42.9 MMOL/L (23.0-31.0); ABG pH (ARTERIAL) 7.373 UNITS (7.350-7.450)
[2023-10-05 12:08] LABS: ABG PARTIAL PRESSURE CO2 71.5 mmHg (35.0-45.0)
[2023-10-05] MEDS ORDERED: MED REC IN PROGRESS XX SCH (13:15)
[2023-10-05] MEDS ORDERED: ACETAMINOPHEN TAB 650MG DOSE (2X325MG) PO PRN (14:05)
[2023-10-05] MEDS ORDERED: ALBUTEROL 90 MCG/ACT 8GM HFA INHALER INH PRN (14:05)
[2023-10-05 14:43] LABS: PROCALCITONIN <0.04 ng/ml
[2023-10-05] MEDS ORDERED: guaiFENesin 200 MG TAB PO PRN (15:00)
[2023-10-05] MEDS ORDERED: ARNU1INH3 INH (15:33)
[2023-10-05] MEDS ORDERED: NICO7DIS30 TD (15:33)
[2023-10-05] MEDS ORDERED: ANOR1AER INH (15:33)
[2023-10-05] MEDS ORDERED: VENTAER INH (15:33)
[2023-10-05] MEDS: AZITHROMYCIN 250MG TABLET PO SCH (15:50)
[2023-10-05] MEDS: MAG SULF 1GM/100ML (MAG RUN) 1 GM in IV 1 EA IV SCH ×2 (15:50→17:06)
[2023-10-05] MEDS ORDERED: GUAI600T12 PO (15:57)
[2023-10-05] MEDS ORDERED: HOME MED LIST COMPLETE! XX SCH (16:00)
[2023-10-05] MEDS: SODIUM CHLORIDE HYPERTONIC 3% 4ML NEB SOL INH SCH ×2 (17:50→20:00)
[2023-10-05 19:55] VITALS: BP 128/66; TEMP 97.9; O2SAT 91
[2023-10-05] MEDS: IPRATROPIUM 0.5MG/ALBUTEROL 2.5MG INH SOL UD 3ML (DUONEB) NEB SCH (20:24)
[2023-10-05 20:25] VITALS: O2SAT 91
[2023-10-05] MEDS: methylPREDNISolone 125MG 2ML VIAL IV SCH (22:16)
[2023-10-06] MEDS: SODIUM CHLORIDE HYPERTONIC 3% 4ML NEB SOL INH SCH ×2 (01:13→09:26)
[2023-10-06] MEDS: IPRATROPIUM 0.5MG/ALBUTEROL 2.5MG INH SOL UD 3ML (DUONEB) NEB SCH ×3 (01:13→13:12)
[2023-10-06 06:59] VITALS: BP 100/52; TEMP 97.5; O2SAT 91
[2023-10-06 07:01] LABS: HEMATOCRIT 35.1 % (36.0-47.0); HEMOGLOBIN 11.4 g/dl (12.0-15.5); MEAN CORPUSCULAR HEMOGLOBIN 34.8 pg (27.0-33.0); MEAN CORPUSCULAR HGB CONC 32.5 g/dl (32.0-36.5); PLATELET COUNT, AUTOMATED 233 10^3/uL (150-450); RED BLOOD COUNT 3.28 10^6/uL (4.00-5.40); WHITE BLOOD COUNT 11.3 10^3/uL (4.0-10.0)
[2023-10-06 07:31] LABS: BLOOD UREA NITROGEN 12 MG/DL (9-23); CALCIUM LEVEL 8.7 MG/DL (8.3-10.6); CARBON DIOXIDE LEVEL 39 MMOL/L (20-31); CHLORIDE LEVEL 100 MMOL/L (98-107); CREATININE FOR GFR 0.45 MG/DL (0.55-1.30); GLOMERULAR FILTRATION RATE > 60.0 (>45); GLUCOSE, FASTING 152 MG/DL (74-106); POTASSIUM SERUM 4.7 MMOL/L (3.5-5.1); SODIUM LEVEL 142 MMOL/L (136-145)
[2023-10-06] MEDS: AZITHROMYCIN 250MG TABLET PO SCH (08:23)
[2023-10-06] MEDS: ENOXAPARIN 40MG/0.4ML SYRINGE (J1650 PER 10MG) SC SCH (08:32)
[2023-10-06] MEDS: FUROSEMIDE 20 MG TAB PO SCH (09:00)
[2023-10-06] MEDS: methylPREDNISolone 125MG 2ML VIAL IV SCH ×2 (09:01→20:46)
[2023-10-06 09:25] VITALS: O2SAT 96
[2023-10-06 14:00] VITALS: BP 109/65; TEMP 98.2; O2SAT 95
[2023-10-06 15:39] LABS: FOLATE 4.94 NG/ML (>5.4)
[2023-10-06] MEDS: SYMBICORT 80/4.5MCG INHALER 6GM INH SCH (19:53)
[2023-10-06] MEDS: LEVALBUTEROL 1.25MG 0.5ML CONCENTRATE NEB INH SCH ×2 (19:53→23:52)
[2023-10-06] MEDS ORDERED: BUDESONIDE 0.25 MG/2 ML INHALATION SUSPENSION INH SCH (20:00)
[2023-10-06] MEDS ORDERED: FORMOTEROL FUMARATE 20 MCG/2 ML INHALATION SOLUTION (PERFOROMIST) INH SCH (20:00)
[2023-10-06 20:59] VITALS: BP 109/66; TEMP 98.1; O2SAT 92
[2023-10-07 06:13] VITALS: BP 105/69; TEMP 98.2; O2SAT 94
[2023-10-07 07:05] LABS: HEMATOCRIT 35.8 % (36.0-47.0); HEMOGLOBIN 11.4 g/dl (12.0-15.5); MEAN CORPUSCULAR HEMOGLOBIN 34.4 pg (27.0-33.0); MEAN CORPUSCULAR HGB CONC 31.8 g/dl (32.0-36.5); MEAN CORPUSCULAR VOLUME 108.2 fl (80.0-96.0); PLATELET COUNT, AUTOMATED 242 10^3/uL (150-450); RED BLOOD COUNT 3.31 10^6/uL (4.00-5.40); WHITE BLOOD COUNT 18.2 10^3/uL (4.0-10.0)
[2023-10-07 07:30] LABS: BLOOD UREA NITROGEN 19 MG/DL (9-23); CALCIUM LEVEL 8.6 MG/DL (8.3-10.6); CARBON DIOXIDE LEVEL 39 MMOL/L (20-31); CHLORIDE LEVEL 101 MMOL/L (98-107); CREATININE FOR GFR 0.44 MG/DL (0.55-1.30); GLOMERULAR FILTRATION RATE > 60.0 (>45); GLUCOSE, FASTING 169 MG/DL (74-106); POTASSIUM SERUM 4.3 MMOL/L (3.5-5.1); SODIUM LEVEL 143 MMOL/L (136-145)
[2023-10-07 08:40] VITALS: O2SAT 92
[2023-10-07] MEDS: LEVALBUTEROL 1.25MG 0.5ML CONCENTRATE NEB INH SCH (08:40)
[2023-10-07] MEDS: SYMBICORT 80/4.5MCG INHALER 6GM INH SCH (08:40)
[2023-10-07] MEDS: ENOXAPARIN 40MG/0.4ML SYRINGE (J1650 PER 10MG) SC SCH ×2 (09:00→09:31)
[2023-10-07] MEDS: AZITHROMYCIN 250MG TABLET PO SCH (09:30)
[2023-10-07] MEDS: methylPREDNISolone 125MG 2ML VIAL IV SCH (09:31)
[2023-10-07] MEDS: FUROSEMIDE 20 MG TAB PO SCH (09:31)
[2023-10-07] MEDS ORDERED: PRED20TA PO (10:40)
[2023-10-07] MEDS ORDERED: PRED10TA2 PO (10:40)
[2023-10-07] MEDS ORDERED: IPRA0.00 INH (10:40)
[2023-10-07] MEDS ORDERED: LEVAINH INH (10:40)
[2023-10-07] MEDS ORDERED: VIST25CA PO (13:35)
[2023-10-07] MEDS ORDERED: FOLI1TAB11 PO (13:39)
== END 2023-10-07 11:50 | disposition home health service (06) ==
LOC: M ED 09:30 → M ED INP 09:31 → M MS5PR 17:03
PROVIDERS: ADMIT Internal Medicine; ATTEND Internal Medicine
DX: J44.1 Chronic obstructive pulmonary disease with (acute) exacerbation (principal); J96.11 Chronic respiratory failure with hypoxia; Z99.81 Dependence on supplemental oxygen; G47.33 Obstructive sleep apnea (adult) (pediatric); J96.12 Chronic respiratory failure with hypercapnia; E87.4 Mixed disorder of acid-base balance; Z91.199 Patient's noncompliance with other medical treatment and regimen due to unspecified reason; F17.210 Nicotine dependence, cigarettes, uncomplicated; F41.9 Anxiety disorder, unspecified; D72.829 Elevated white blood cell count, unspecified; E53.8 Deficiency of other specified B group vitamins; J45.909 Unspecified asthma, uncomplicated; E78.5 Hyperlipidemia, unspecified; R10.9 Unspecified abdominal pain; I50.30 Unspecified diastolic (congestive) heart failure; D53.9 Nutritional anemia, unspecified; R51.9 Headache, unspecified; R07.9 Chest pain, unspecified; Z91.040 Latex allergy status; Z91.018 Allergy to other foods; Z83.6 Family history of other diseases of the respiratory system; Z82.3 Family history of stroke; Z79.899 Other long term (current) drug therapy; Z79.51 Long term (current) use of inhaled steroids
CPT/HCPCS: 36415; 36600; 71045; 74018; 80048; 80076; 82550; 82553; 82607; 82746; 82803; 83605; 83880; 84145; 84443; 84484; 85025; 85027; 85610; 87040; 87486; 87581; 87633; 87798; 93005; 93041; 94640; 94760; 96374; 96376; 99285; G0378; J2930; J3475

== ENCOUNTER 2023-12-19 13:21 | Inpatient (IN) | payer MEDICARE, MEDICAID ==
[~2023-12-19] VITALS: Ht 157.5 cm; Wt 74.3 kg
[~2023-12-19 13:21] MED LIST changes: +ANOR1AER INH; +GUAI600T12 PO; +IPRA0.00 INH; +LEVAINH INH; +NICO7DIS30 TD; +PRED20TA PO; +VENTAER INH; +VIST25CA PO
[2023-12-19 15:27] LABS: ABG BASE EXCESS 7.1 (-2.0-2.0); ABG HCO3 36.8 MMOL/L (22.0-26.0); ABG O2 SATURATION 93.3 % (95.0-99.0); ABG PARTIAL PRESSURE O2 64.4 mmHg (75.0-100.0); ABG STANDARD HCO3 30.8 MMOL/L. (22.0-26.0); ABG TOTAL CO2 39.2 MMOL/L (23.0-31.0); ABG pH (ARTERIAL) 7.284 UNITS (7.350-7.450)
[2023-12-19 15:33] LABS: ABG PARTIAL PRESSURE CO2 79.3 mmHg (35.0-45.0)
[2023-12-19] MEDS: ACETAMINOPHEN TAB 650MG DOSE (2X325MG) PO ONE (15:36)
[2023-12-19] MEDS: methylPREDNISolone 125MG 2ML VIAL IV ONE (15:36)
[2023-12-19 15:49] LABS: BASO # 0.1 10^3/uL (0.0-0.2); BASO % 0.6 % (0.0-1.0); EOS # 0.1 10^3/uL (0.0-0.5); EOS % 1.4 % (0.0-3.0); HEMATOCRIT 43.7 % (36.0-47.0); HEMOGLOBIN 13.2 g/dl (12.0-15.5); LYMPH # 1.1 10^3/uL (1.5-5.0); MEAN CORPUSCULAR HEMOGLOBIN 33.1 pg (27.0-33.0); MEAN CORPUSCULAR HGB CONC 30.2 g/dl (32.0-36.5); MEAN CORPUSCULAR VOLUME 109.5 fl (80.0-96.0); MONO # 0.8 10^3/uL (0.0-0.8); MONO % 8.1 % (2.0-8.0); NEUTROPHILS # 7.3 10^3/uL (1.5-8.5); NEUTROPHILS % 77.6 % (36.0-66.0); PLATELET COUNT, AUTOMATED 236 10^3/uL (150-450); RED BLOOD COUNT 3.99 10^6/uL (4.00-5.40); WHITE BLOOD COUNT 9.4 10^3/uL (4.0-10.0)
[2023-12-19 16:05] LABS: INR 0.98; PROTHROMBIN TIME 12.7 SECONDS (12.5-14.5)
[2023-12-19 16:19] LABS: CPK CREATINE PHOSPHOKINASE 27 U/L (34-145)
[2023-12-19 16:42] LABS: CK-MB VALUE MASS < 1.0 NG/ML (<3.6)
[2023-12-19 16:45] LABS: CPK CREATINE PHOSPHOKINASE 39 U/L (34-145); MB/CK RELATIVE INDEX 2.56 (< OR =4)
[2023-12-19] MEDS: IPRATROPIUM 0.5MG/ALBUTEROL 2.5MG INH SOL UD 3ML (DUONEB) NEB PRN (16:55)
[2023-12-19 17:19] LABS: ABG BASE EXCESS 9.8 (-2.0-2.0); ABG PARTIAL PRESSURE O2 53.4 mmHg (75.0-100.0); ABG STANDARD HCO3 33.4 MMOL/L. (22.0-26.0); ABG TOTAL CO2 42.6 MMOL/L (23.0-31.0); ABG pH (ARTERIAL) 7.291 UNITS (7.350-7.450)
[2023-12-19 17:20] LABS: ABG PARTIAL PRESSURE CO2 84.9 mmHg (35.0-45.0)
[2023-12-19 17:42] LABS: PROCALCITONIN 0.04 ng/ml
[2023-12-19 17:43] LABS: ALBUMIN 3.7 G/DL (3.2-5.2); ALKALINE PHOSPHATASE 67 U/L (46-116); ALT/SGPT 11 U/L (7.0-40); AST/SGOT < 8 U/L (<34); BILIRUBIN,DIRECT 0.2 MG/DL (<0.4); BILIRUBIN,TOTAL 0.7 MG/DL (0.3-1.2); BLOOD UREA NITROGEN 8 MG/DL (9-23); CALCIUM LEVEL 8.6 MG/DL (8.3-10.6); CARBON DIOXIDE LEVEL > 40.0 MMOL/L (20-31); CHLORIDE LEVEL 98 MMOL/L (98-107); CK-MB VALUE MASS < 1.0 NG/ML (<3.6); CREATININE FOR GFR 0.54 MG/DL (0.55-1.30); GLOMERULAR FILTRATION RATE > 60.0 (>45); GLUCOSE, FASTING 109 MG/DL (74-106); SODIUM LEVEL 140 MMOL/L (136-145); THYROID STIMULATING HORMONE 1.517 uIU/ML (0.55-4.78); THYROXINE (T4) 3.9 UG/DL (4.5-10.9); TOTAL PROTEIN 6.5 G/DL (5.7-8.2)
[2023-12-19] MEDS: cefTRIAXone SOD 1 GM in D5W MINI-BAG PLUS 50 ML IV ONE (18:43)
[2023-12-19] MEDS: NS 1,000 ML IV ONE (18:44)
[2023-12-19] MEDS ORDERED: HYDR1CAP25 PO (18:46)
[2023-12-19] MEDS ORDERED: FURO20TA2 PO (18:46)
[2023-12-19] MEDS ORDERED: NICO14DI6 TD (18:46)
[2023-12-19] MEDS ORDERED: VENTAER INH (18:50)
[2023-12-19] MEDS ORDERED: FLUT1BLS8 INH (18:50)
[2023-12-19] MEDS ORDERED: ALBU2.5V10 INH (18:55)
[2023-12-19] MEDS ORDERED: IPRA0.00 INH (19:00)
[2023-12-19] MEDS ORDERED: HOME MED LIST COMPLETE! XX SCH (19:05)
[2023-12-19] MEDS: AZITHROMYCIN INJ 500 MG, VIAL MATE ADAPTER 1 EACH in NS 250 ML IV ONE (19:30)
[2023-12-19] MEDS: IPRATROPIUM 0.5MG/ALBUTEROL 2.5MG INH SOL UD 3ML (DUONEB) NEB SCH (20:15)
[2023-12-19 22:14] LABS: ABG BASE EXCESS 5.2 (-2.0-2.0); ABG HCO3 38.4 MMOL/L (22.0-26.0); ABG O2 SATURATION 99.4 % (95.0-99.0); ABG PARTIAL PRESSURE O2 235.4 mmHg (75.0-100.0); ABG STANDARD HCO3 29.2 MMOL/L. (22.0-26.0)
[2023-12-19 22:15] LABS: ABG PARTIAL PRESSURE CO2 116.5 mmHg (35.0-45.0); ABG pH (ARTERIAL) 7.136 UNITS (7.350-7.450)
[2023-12-19 23:49] LABS: ABG BASE EXCESS 7.2 (-2.0-2.0); ABG HCO3 39.7 MMOL/L (22.0-26.0); ABG O2 SATURATION 95.6 % (95.0-99.0); ABG PARTIAL PRESSURE O2 84.2 mmHg (75.0-100.0)
[2023-12-19 23:55] LABS: ABG PARTIAL PRESSURE CO2 107.5 mmHg (35.0-45.0); ABG pH (ARTERIAL) 7.185 UNITS (7.350-7.450)
[2023-12-20] VITALS (14 sets, daily range): BP systolic 99–134; BP diastolic 55–92; TEMP 97.2–98.3; O2SAT 89–98
[2023-12-20 01:58] LABS: ABG BASE EXCESS 10.4 (-2.0-2.0); ABG HCO3 42.1 MMOL/L (22.0-26.0); ABG O2 SATURATION 94.5 % (95.0-99.0); ABG PARTIAL PRESSURE O2 74.3 mmHg (75.0-100.0); ABG STANDARD HCO3 34.1 MMOL/L. (22.0-26.0); ABG TOTAL CO2 45.3 MMOL/L (23.0-31.0); ABG pH (ARTERIAL) 7.232 UNITS (7.350-7.450)
[2023-12-20 01:59] LABS: ABG PARTIAL PRESSURE CO2 102.4 mmHg (35.0-45.0)
[2023-12-20] MEDS: methylPREDNISolone 40MG 1ML VIAL IV SCH (04:08)
[2023-12-20 05:39] LABS: ABG BASE EXCESS 9.7 (-2.0-2.0); ABG HCO3 38.9 MMOL/L (22.0-26.0); ABG O2 SATURATION 99.3 % (95.0-99.0); ABG PARTIAL PRESSURE O2 172.1 mmHg (75.0-100.0); ABG STANDARD HCO3 33.5 MMOL/L. (22.0-26.0); ABG TOTAL CO2 41.3 MMOL/L (23.0-31.0); ABG pH (ARTERIAL) 7.315 UNITS (7.350-7.450)
[2023-12-20 05:41] LABS: ABG PARTIAL PRESSURE CO2 78.1 mmHg (35.0-45.0)
[2023-12-20] MEDS: HEPARIN SOD (PORCINE) 5000UNITS/ML 1ML VIAL/SYRINGE SC SCH (06:36)
[2023-12-20 07:22] LABS: BASO % 0.1 % (0.0-1.0); HEMOGLOBIN 12.2 g/dl (12.0-15.5); LYMPH # 0.3 10^3/uL (1.5-5.0); LYMPH % 3.4 % (24.0-44.0); MEAN CORPUSCULAR HGB CONC 30.5 g/dl (32.0-36.5); MEAN CORPUSCULAR VOLUME 108.1 fl (80.0-96.0); MONO # 0.1 10^3/uL (0.0-0.8); MONO % 1.3 % (2.0-8.0); NEUTROPHILS # 9.4 10^3/uL (1.5-8.5); NEUTROPHILS % 94.8 % (36.0-66.0); PLATELET COUNT, AUTOMATED 210 10^3/uL (150-450); WHITE BLOOD COUNT 9.9 10^3/uL (4.0-10.0)
[2023-12-20 07:59] LABS: ALBUMIN 3.1 G/DL (3.2-5.2); ALKALINE PHOSPHATASE 60 U/L (46-116); ALT/SGPT 11 U/L (7.0-40); AST/SGOT < 8 U/L (<34); BILIRUBIN,TOTAL 0.5 MG/DL (0.3-1.2); BLOOD UREA NITROGEN 15 MG/DL (9-23); CALCIUM LEVEL 8.6 MG/DL (8.3-10.6); CARBON DIOXIDE LEVEL > 40.0 MMOL/L (20-31); CHLORIDE LEVEL 104 MMOL/L (98-107); CREATININE FOR GFR 0.46 MG/DL (0.55-1.30); GLOMERULAR FILTRATION RATE > 60.0 (>45); GLUCOSE, FASTING 157 MG/DL (74-106); POTASSIUM SERUM 4.8 MMOL/L (3.5-5.1); SODIUM LEVEL 142 MMOL/L (136-145)
[2023-12-20] MEDS: AZITHROMYCIN 250MG TABLET PO SCH (09:54)
[2023-12-20] MEDS: cefTRIAXone SOD 1 GM in D5W MINI-BAG PLUS 50 ML IV SCH (09:54)
[2023-12-20] MEDS: FAMOTIDINE 20 MG TAB PO SCH (09:55)
[2023-12-21] VITALS (16 sets, daily range): BP systolic 106–134; BP diastolic 60–77; TEMP 97.1–98.3; O2SAT 90–99
[2023-12-21 05:16] LABS: ALBUMIN 3.1 G/DL (3.2-5.2); ALKALINE PHOSPHATASE 60 U/L (46-116); ALT/SGPT 12 U/L (7.0-40); AST/SGOT < 8 U/L (<34); BILIRUBIN,TOTAL 0.3 MG/DL (0.3-1.2); BLOOD UREA NITROGEN 25 MG/DL (9-23); CALCIUM LEVEL 8.7 MG/DL (8.3-10.6); CARBON DIOXIDE LEVEL > 40.0 MMOL/L (20-31); CHLORIDE LEVEL 102 MMOL/L (98-107); CREATININE FOR GFR 0.51 MG/DL (0.55-1.30); GLOMERULAR FILTRATION RATE > 60.0 (>45); GLUCOSE, FASTING 183 MG/DL (74-106); POTASSIUM SERUM 4.4 MMOL/L (3.5-5.1); SODIUM LEVEL 143 MMOL/L (136-145); TOTAL PROTEIN 5.9 G/DL (5.7-8.2)
[2023-12-21 10:24] LABS: VENOUS BASE EXCESS 8.2 (-2.0-2.0); VENOUS HCO3 36.1 MMOL/L (23.0-27.0); VENOUS O2 SATURATION 99.3 % (60.0-80.0); VENOUS PARTIAL PRESSURE CO2 66.5 mmHg (38.0-50.0); VENOUS PH 7.352 UNITS (7.330-7.430); VENOUS TOTAL CO2 38.1 MMOL/L (24.0-28.0)
[2023-12-21] MEDS: TIOTROPIUM INHALER/CAPSULE (SPIRIVA) INH SCH (11:32)
[2023-12-21] MEDS: ADVAIR HFA 230/21MCG INHALER INH SCH (11:32)
[2023-12-21] MEDS: guaiFENesin ER TABLET 600 MG TAB PO SCH (13:45)
[2023-12-21] MEDS: ACETYLCYSTEINE 20% 4 ML VIAL (200MG/ML) INH SCH (20:00)
[2023-12-21] MEDS: METOPROLOL TART 12.5 MG PER 1/2 TAB PO SCH (20:30)
[2023-12-21] MEDS: ACETAMINOPHEN TAB 650MG DOSE (2X325MG) PO PRN (22:48)
[2023-12-22 05:36] VITALS: BP 115/72; TEMP 96.7; O2SAT 92
[2023-12-22 06:00] LABS: ABG BASE EXCESS 11.5 (-2.0-2.0); ABG O2 SATURATION 97.7 % (95.0-99.0); ABG PARTIAL PRESSURE O2 99.5 mmHg (75.0-100.0); ABG STANDARD HCO3 35.3 MMOL/L. (22.0-26.0); ABG TOTAL CO2 42.2 MMOL/L (23.0-31.0); ABG pH (ARTERIAL) 7.351 UNITS (7.350-7.450)
[2023-12-22 06:01] LABS: ABG PARTIAL PRESSURE CO2 73.9 mmHg (35.0-45.0)
[2023-12-22 07:42] LABS: VENOUS BASE EXCESS 10.7 (-2.0-2.0); VENOUS HCO3 41.2 MMOL/L (23.0-27.0); VENOUS O2 SATURATION 78.6 % (60.0-80.0); VENOUS PARTIAL PRESSURE CO2 91.8 mmHg (38.0-50.0); VENOUS PARTIAL PRESSURE O2 43.5 mmHg (30.0-50.0)
[2023-12-22] MEDS: predniSONE 20 MG TAB PO SCH (09:22)
[2023-12-22] MEDS: AZITHROMYCIN 250MG TABLET PO SCH (09:22)
[2023-12-22 10:44] LABS: BASO % 0.1 % (0.0-1.0); EOS # 0.1 10^3/uL (0.0-0.5); EOS % 0.7 % (0.0-3.0); HEMATOCRIT 39.4 % (36.0-47.0); HEMOGLOBIN 11.7 g/dl (12.0-15.5); LYMPH # 1.8 10^3/uL (1.5-5.0); LYMPH % 17.5 % (24.0-44.0); MEAN CORPUSCULAR HEMOGLOBIN 33.1 pg (27.0-33.0); MEAN CORPUSCULAR HGB CONC 29.7 g/dl (32.0-36.5); MEAN CORPUSCULAR VOLUME 111.6 fl (80.0-96.0); MONO # 0.6 10^3/uL (0.0-0.8); MONO % 6.2 % (2.0-8.0); NEUTROPHILS # 7.6 10^3/uL (1.5-8.5); NEUTROPHILS % 75.3 % (36.0-66.0); PLATELET COUNT, AUTOMATED 230 10^3/uL (150-450); RED BLOOD COUNT 3.53 10^6/uL (4.00-5.40); WHITE BLOOD COUNT 10.1 10^3/uL (4.0-10.0)
[2023-12-22 12:04] LABS: BLOOD UREA NITROGEN 21 MG/DL (9-23); CALCIUM LEVEL 8.5 MG/DL (8.3-10.6); CARBON DIOXIDE LEVEL > 40.0 MMOL/L (20-31); CHLORIDE LEVEL 98 MMOL/L (98-107); GLUCOSE, FASTING 112 MG/DL (74-106); SODIUM LEVEL 140 MMOL/L (136-145)
[2023-12-22 12:21] LABS: CREATININE FOR GFR 0.55 MG/DL (0.55-1.30); GLOMERULAR FILTRATION RATE > 60.0 (>45)
[2023-12-22 13:53] VITALS: BP 140/88; TEMP 97.3; O2SAT 91
[2023-12-22 16:45] LABS: VITAMIN B12 LEVEL 276 PG/ML (211-911)
[2023-12-22 16:46] LABS: FOLATE 5.7 NG/ML (>5.4)
[2023-12-22 20:29] VITALS: O2SAT 93
[2023-12-22 21:42] VITALS: BP 132/75; TEMP 97.7; O2SAT 95
[2023-12-23 06:00] VITALS: BP 127/73; TEMP 97.2; O2SAT 95
[2023-12-23 15:38] LABS: ABG BASE EXCESS 9.2 (-2.0-2.0); ABG HCO3 37.2 MMOL/L (22.0-26.0); ABG O2 SATURATION 99.2 % (95.0-99.0); ABG PARTIAL PRESSURE O2 140.8 mmHg (75.0-100.0); ABG TOTAL CO2 39.3 MMOL/L (23.0-31.0)
[2023-12-23 15:40] LABS: ABG PARTIAL PRESSURE CO2 67.4 mmHg (35.0-45.0)
[2023-12-23 19:53] VITALS: O2SAT 97
[2023-12-23 20:16] VITALS: BP 143/78; TEMP 97.5; O2SAT 93
[2023-12-23 23:10] VITALS: O2SAT 97
[2023-12-24] MEDS ORDERED: AZIT-12 PO (09:00)
[2023-12-24] MEDS ORDERED: PRED10TA2 PO (09:00)
[2023-12-24] MEDS ORDERED: METO1TAB87 PO (09:04)
[2023-12-24 09:07] VITALS: BP 122/74
== END 2023-12-24 15:20 | disposition home health service (06) | DRG 189 ==
LOC: M ED 13:21 → EDBD 13:21 → M ED INP 18:24 → ENRESERV 22:57 → M ICU 12-20 04:37 → M MS5PR 12-21 14:55
PROVIDERS: ADMIT Internal Medicine Critical Care Medicine; ATTEND Internal Medicine
DX: J96.22 Acute and chronic respiratory failure with hypercapnia (principal); J44.1 Chronic obstructive pulmonary disease with (acute) exacerbation; E87.4 Mixed disorder of acid-base balance; J96.21 Acute and chronic respiratory failure with hypoxia; F41.9 Anxiety disorder, unspecified; G47.33 Obstructive sleep apnea (adult) (pediatric); R51.9 Headache, unspecified; F17.210 Nicotine dependence, cigarettes, uncomplicated; J20.8 Acute bronchitis due to other specified organisms; Z79.899 Other long term (current) drug therapy; Z91.040 Latex allergy status; Z91.018 Allergy to other foods; Z20.822 Contact with and (suspected) exposure to COVID-19; Z99.81 Dependence on supplemental oxygen

== ENCOUNTER 2024-01-03 05:52 | Inpatient (IN) | payer MEDICARE, MEDICAID ==
[~2024-01-03] VITALS: Ht 160 cm; Wt 72.0 kg
[2024-01-03] VITALS (12 sets, daily range): BP systolic 112–134; BP diastolic 57–69; TEMP 96.1–98.2; O2SAT 86–100
[~2024-01-03 05:52] MED LIST changes: +AZIT-12 PO; +FLUT1BLS8 INH; +HYDR1CAP25 PO; +METO1TAB87 PO; +NICO14DI6 TD
[2024-01-03 06:28] LABS: VENOUS BASE EXCESS 11.5 (-2.0-2.0); VENOUS HCO3 44.6 MMOL/L (23.0-27.0); VENOUS O2 SATURATION 74.3 % (60.0-80.0); VENOUS PARTIAL PRESSURE CO2 113.6 mmHg (38.0-50.0); VENOUS PARTIAL PRESSURE O2 39.1 mmHg (30.0-50.0); VENOUS PH 7.212 UNITS (7.330-7.430); VENOUS STANDARD HCO3 34.7 MMOL/L; VENOUS TOTAL CO2 48.1 MMOL/L (24.0-28.0)
[2024-01-03 06:32] LABS: BASO % 0.3 % (0.0-1.0); EOS # 0.2 10^3/uL (0.0-0.5); EOS % 1.3 % (0.0-3.0); HEMATOCRIT 44.1 % (36.0-47.0); HEMOGLOBIN 13.2 g/dl (12.0-15.5); LYMPH # 2.2 10^3/uL (1.5-5.0); LYMPH % 18.7 % (24.0-44.0); MEAN CORPUSCULAR HEMOGLOBIN 32.8 pg (27.0-33.0); MEAN CORPUSCULAR HGB CONC 29.9 g/dl (32.0-36.5); MEAN CORPUSCULAR VOLUME 109.7 fl (80.0-96.0); MONO # 0.7 10^3/uL (0.0-0.8); MONO % 5.8 % (2.0-8.0); NEUTROPHILS # 8.7 10^3/uL (1.5-8.5); NEUTROPHILS % 73.2 % (36.0-66.0); PLATELET COUNT, AUTOMATED 307 10^3/uL (150-450); RED BLOOD COUNT 4.02 10^6/uL (4.00-5.40); WHITE BLOOD COUNT 11.9 10^3/uL (4.0-10.0)
[2024-01-03 07:04] LABS: BLOOD UREA NITROGEN 9 MG/DL (9-23); CALCIUM LEVEL 8.9 MG/DL (8.3-10.6); CARBON DIOXIDE LEVEL > 40.0 MMOL/L (20-31); CHLORIDE LEVEL 102 MMOL/L (98-107); CREATININE FOR GFR 0.63 MG/DL (0.55-1.30); GLOMERULAR FILTRATION RATE > 60.0 (>45); GLUCOSE, FASTING 148 MG/DL (74-106); POTASSIUM SERUM 4.5 MMOL/L (3.5-5.1); SODIUM LEVEL 145 MMOL/L (136-145)
[2024-01-03] MEDS: ALBUTEROL SULFATE 2.5MG/0.5ML INH NEB SOLN NEB ONE (07:24)
[2024-01-03 07:34] LABS: ABG BASE EXCESS 8.1 (-2.0-2.0); ABG HCO3 36.9 MMOL/L (22.0-26.0); ABG O2 SATURATION 89.4 % (95.0-99.0); ABG PARTIAL PRESSURE O2 53.7 mmHg (75.0-100.0); ABG STANDARD HCO3 31.7 MMOL/L. (22.0-26.0); ABG TOTAL CO2 39.2 MMOL/L (23.0-31.0); ABG pH (ARTERIAL) 7.322 UNITS (7.350-7.450)
[2024-01-03] MEDS ORDERED: METO25TA4 PO (09:15)
[2024-01-03] MEDS ORDERED: HOME MED LIST COMPLETE! XX SCH (09:20)
[2024-01-03] MEDS: PANTOPRAZOLE 40MG VIAL IV SCH (10:25)
[2024-01-03] MEDS ORDERED: guaiFENesin ER TABLET 600 MG TAB PO PRN (10:35)
[2024-01-03] MEDS: methylPREDNISolone 125MG 2ML VIAL IV ONE (12:46)
[2024-01-03] MEDS: METOPROLOL TART 25 MG TABLET PO SCH (12:47)
[2024-01-03] MEDS: AZITHROMYCIN 250MG TABLET PO ONE (12:47)
[2024-01-03] MEDS: ENOXAPARIN 40MG/0.4ML SYRINGE (J1650 PER 10MG) SC SCH (12:47)
[2024-01-03] MEDS: ALBUTEROL SULFATE 2.5MG/0.5ML INH NEB SOLN NEB PRN (18:04)
[2024-01-04] VITALS (14 sets, daily range): BP systolic 101–132; BP diastolic 52–68; TEMP 96.4–97.5; O2SAT 92–100
[2024-01-04 05:25] LABS: ALKALINE PHOSPHATASE 48 U/L (46-116); ALT/SGPT 16 U/L (7.0-40); AST/SGOT < 8 U/L (<34); BILIRUBIN,TOTAL 0.4 MG/DL (0.3-1.2); BLOOD UREA NITROGEN 17 MG/DL (9-23); CALCIUM LEVEL 8.9 MG/DL (8.3-10.6); CARBON DIOXIDE LEVEL > 40.0 MMOL/L (20-31); CHLORIDE LEVEL 99 MMOL/L (98-107); CREATININE FOR GFR 0.52 MG/DL (0.55-1.30); GLOMERULAR FILTRATION RATE > 60.0 (>45); GLUCOSE, FASTING 143 MG/DL (74-106); MAGNESIUM LEVEL 2.1 MG/DL (1.8-2.4); POTASSIUM SERUM 4.4 MMOL/L (3.5-5.1); SODIUM LEVEL 139 MMOL/L (136-145); TOTAL PROTEIN 5.5 G/DL (5.7-8.2)
[2024-01-04] MEDS: TIOTROPIUM INHALER/CAPSULE (SPIRIVA) INH SCH (08:00)
[2024-01-04] MEDS: PANTOPRAZOLE 40MG TAB (PROTONIX) PO SCH (08:57)
[2024-01-04] MEDS: AZITHROMYCIN 250MG TABLET PO SCH (08:57)
[2024-01-04] MEDS: predniSONE 20 MG TAB PO SCH (08:57)
[2024-01-04] MEDS: ACETAMINOPHEN TAB 650MG DOSE (2X325MG) PO PRN (10:00)
[2024-01-04] MEDS: IPRATROPIUM 0.5MG/ALBUTEROL 2.5MG INH SOL UD 3ML (DUONEB) NEB SCH (14:00)
[2024-01-04] MEDS ORDERED: PILL CUTTER 1 EACH XX PRN (15:50)
[2024-01-04] MEDS: SYMBICORT 160/4.5MCG INHALER 6GM INH SCH (19:43)
[2024-01-04] MEDS: NICOTINE 21MG/24HR 1 EA TRANSDERMAL TD SCH (21:05)
[2024-01-05] VITALS: BP 124/69; TEMP 98.7; O2SAT 95
[2024-01-05 04:00] VITALS: BP 129/60; TEMP 98; O2SAT 92
[2024-01-05 04:30] LABS: HEMOGLOBIN 12.3 g/dl (12.0-15.5); MEAN CORPUSCULAR HEMOGLOBIN 32.8 pg (27.0-33.0); MEAN CORPUSCULAR HGB CONC 30.8 g/dl (32.0-36.5); MEAN CORPUSCULAR VOLUME 106.7 fl (80.0-96.0); PLATELET COUNT, AUTOMATED 238 10^3/uL (150-450); RED BLOOD COUNT 3.75 10^6/uL (4.00-5.40)
[2024-01-05 04:45] VITALS: O2SAT 94
[2024-01-05 04:55] LABS: BLOOD UREA NITROGEN 16 MG/DL (9-23); CALCIUM LEVEL 8.6 MG/DL (8.3-10.6); CARBON DIOXIDE LEVEL 39 MMOL/L (20-31); CHLORIDE LEVEL 101 MMOL/L (98-107); CREATININE FOR GFR 0.51 MG/DL (0.55-1.30); GLOMERULAR FILTRATION RATE > 60.0 (>45); GLUCOSE, FASTING 202 MG/DL (74-106); POTASSIUM SERUM 4.1 MMOL/L (3.5-5.1); SODIUM LEVEL 141 MMOL/L (136-145)
[2024-01-05 07:23] VITALS: BP 124/69; TEMP 96.9; O2SAT 98
[2024-01-05 08:05] VITALS: BP 124/69
[2024-01-05] MEDS ORDERED: NICOTINE 21MG/24HR 1 EA TRANSDERMAL TD SCH ×2 (09:00→21:00)
[2024-01-05 09:19] LABS: HEMOGLOBIN A1c 6.3 % (4.0-6.0)
[2024-01-05] MEDS ORDERED: AZIT-12 PO (10:30)
== END 2024-01-05 12:55 | disposition home health service (06) | DRG 189 ==
LOC: M ED 05:52 → M ED INP 08:48 → M ICU 10:48
PROVIDERS: ADMIT Internal Medicine Pulmonary Disease; ATTEND Internal Medicine Pulmonary Disease
DX: J96.21 Acute and chronic respiratory failure with hypoxia (principal); J44.1 Chronic obstructive pulmonary disease with (acute) exacerbation; E87.4 Mixed disorder of acid-base balance; I50.32 Chronic diastolic (congestive) heart failure; J96.22 Acute and chronic respiratory failure with hypercapnia; J45.909 Unspecified asthma, uncomplicated; G47.33 Obstructive sleep apnea (adult) (pediatric); F41.9 Anxiety disorder, unspecified; K21.9 Gastro-esophageal reflux disease without esophagitis; F17.210 Nicotine dependence, cigarettes, uncomplicated; Z79.899 Other long term (current) drug therapy; Z91.040 Latex allergy status; Z91.018 Allergy to other foods; Z11.52 Encounter for screening for COVID-19; Z99.81 Dependence on supplemental oxygen

== ENCOUNTER → 2024-02-27 | Outpatient (REF) | payer MEDICARE, MEDICAID ==
[~2024-02-27] MED LIST changes: +METO25TA4 PO
== END ==
LOC: M LAB REF 14:52
PROVIDERS: ATTEND Internal Medicine Pulmonary Disease
DX: R05.9 Cough, unspecified (principal)

== ENCOUNTER → 2024-06-24 | Outpatient (CLI) | payer MEDICARE, MEDICAID ==
[~2024-06-24] MED LIST changes: +DOXY-440 PO; -DOXY-444 PO
== END ==
LOC: M RAD 15:06
PROVIDERS: ATTEND Physician Assistant
DX: Z12.2 Encounter for screening for malignant neoplasm of respiratory organs (principal); F17.218 Nicotine dependence, cigarettes, with other nicotine-induced disorders; J43.2 Centrilobular emphysema; R91.8 Other nonspecific abnormal finding of lung field; J47.9 Bronchiectasis, uncomplicated

== ENCOUNTER → 2024-08-21 | Outpatient (REF) | payer MEDICARE, MEDICAID ==
[2024-08-21 13:42] LABS: ALKALINE PHOSPHATASE 80 U/L (46-116); ALT/SGPT 15 U/L (7.0-40); AST/SGOT 14 U/L (<34); BILIRUBIN,TOTAL 0.5 MG/DL (0.3-1.2); BLOOD UREA NITROGEN 10 MG/DL (9-23); CALCIUM LEVEL 9.5 MG/DL (8.3-10.6); CARBON DIOXIDE LEVEL 38 MMOL/L (20-31); CHLORIDE LEVEL 103 MMOL/L (98-107); CHOLESTEROL LEVEL 206 MG/DL (<200); CHOLESTEROL RISK RATIO 4.48 (<5); CREATININE FOR GFR 0.57 MG/DL (0.55-1.30); GLOMERULAR FILTRATION RATE > 60.0 (>45); GLUCOSE, FASTING 114 MG/DL (74-106); HDL CHOLESTEROL 45.9 MG/DL (>40); LDL CHOLESTEROL 143.3 MG/DL (<100); NON-HDL-C 160.1 MG/DL; POTASSIUM SERUM 4.6 MMOL/L (3.5-5.1); SODIUM LEVEL 141 MMOL/L (136-145); TOTAL PROTEIN 6.8 G/DL (5.7-8.2); TRIGLYCERIDES LEVEL 84 MG/DL (<150)
[2024-08-21 13:44] LABS: THYROID STIMULATING HORMONE 3.221 uIU/ML (0.55-4.78)
[2024-08-21 14:14] LABS: HEMOGLOBIN A1c 5.7 % (4.0-6.0)
== END ==
LOC: M LAB REF 12:21
PROVIDERS: ATTEND Family Medicine Addiction Medicine
DX: R73.03 Prediabetes (principal); Z79.899 Other long term (current) drug therapy

== ENCOUNTER → 2024-08-23 | Outpatient (CLI) | payer MEDICARE, MEDICAID ==
[~2024-08-23] MED LIST changes: +LEVA15HF2 INH; -LEVAINH INH
== END ==
LOC: M SLEEP 20:00
PROVIDERS: ATTEND Physician Assistant
DX: G47.33 Obstructive sleep apnea (adult) (pediatric) (principal); R09.02 Hypoxemia

== ENCOUNTER 2024-08-25 18:59 | Emergency (ER) | payer MEDICAID, MEDICARE ==
[~2024-08-25] VITALS: Ht 157.5 cm; Wt 75.0 kg
[~2024-08-25 18:59] MED LIST changes: -LEVA15HF2 INH; +LEVAINH INH
[2024-08-25 19:33] VITALS: TEMP 98.1
[2024-08-25 20:06] LABS: BASO # 0.1 10^3/uL (0.0-0.2); BASO % 0.6 % (0.0-1.0); EOS # 0.2 10^3/uL (0.0-0.5); EOS % 1.8 % (0.0-3.0); HEMATOCRIT 39.6 % (36.0-47.0); HEMOGLOBIN 12.3 g/dl (12.0-15.5); LYMPH # 1.3 10^3/uL (1.5-5.0); LYMPH % 13.4 % (24.0-44.0); MEAN CORPUSCULAR HGB CONC 31.1 g/dl (32.0-36.5); MEAN CORPUSCULAR VOLUME 106.2 fl (80.0-96.0); MONO # 0.6 10^3/uL (0.0-0.8); NEUTROPHILS # 7.5 10^3/uL (1.5-8.5); NEUTROPHILS % 77.9 % (36.0-66.0); PLATELET COUNT, AUTOMATED 258 10^3/uL (150-450); RED BLOOD COUNT 3.73 10^6/uL (4.00-5.40); WHITE BLOOD COUNT 9.7 10^3/uL (4.0-10.0)
[2024-08-25 20:26] LABS: CK-MB VALUE MASS < 1.0 NG/ML (<3.6)
[2024-08-25 20:28] LABS: ALBUMIN 3.8 G/DL (3.2-5.2); ALKALINE PHOSPHATASE 81 U/L (46-116); ALT/SGPT 13 U/L (7.0-40); AST/SGOT 13 U/L (<34); BILIRUBIN,DIRECT 0.1 MG/DL (<0.4); BILIRUBIN,TOTAL 0.4 MG/DL (0.3-1.2); BLOOD UREA NITROGEN 11 MG/DL (9-23); CALCIUM LEVEL 9.3 MG/DL (8.3-10.6); CARBON DIOXIDE LEVEL 39 MMOL/L (20-31); CHLORIDE LEVEL 103 MMOL/L (98-107); CREATININE FOR GFR 0.65 MG/DL (0.55-1.30); GLOMERULAR FILTRATION RATE > 60.0 (>45); GLUCOSE, FASTING 121 MG/DL (74-106); SODIUM LEVEL 141 MMOL/L (136-145); TOTAL PROTEIN 6.9 G/DL (5.7-8.2)
[2024-08-25 20:44] LABS: CPK CREATINE PHOSPHOKINASE 47 U/L (34-145); MB/CK RELATIVE INDEX 2.12 (< OR =4)
[2024-08-25] MEDS: IPRATROPIUM 0.5MG/ALBUTEROL 2.5MG INH SOL UD 3ML (DUONEB) NEB ONE (20:47)
[2024-08-25] MEDS: FUROSEMIDE 40MG/4ML VIAL IV ONE (21:06)
[2024-08-25 21:59] VITALS: BP 145/78; O2SAT 91
[2024-08-25] MEDS ORDERED: PRED20TA PO (22:41)
[2024-08-25 23:28] LABS: INR 1.01
== END 2024-08-25 23:07 | disposition home or self-care (01) ==
LOC: M ED 18:59
DX: J44.1 Chronic obstructive pulmonary disease with (acute) exacerbation (principal); I70.0 Atherosclerosis of aorta; I11.0 Hypertensive heart disease with heart failure; J44.9 Chronic obstructive pulmonary disease, unspecified; F17.200 Nicotine dependence, unspecified, uncomplicated; Z79.899 Other long term (current) drug therapy; Z91.018 Allergy to other foods; Z91.040 Latex allergy status
CPT/HCPCS: 71045; 80048; 80076; 82550; 82553; 83880; 84484; 85025; 85610; 87040; 87486; 87581; 87633; 87798; 93005; 93041; 94640; 94760; 96374; 99284; J1940

== ENCOUNTER 2024-10-11 07:08 | Inpatient (IN) | payer MEDICARE ==
[2024-10-11] VITALS (22 sets, daily range): BP systolic 118–155; BP diastolic 56–80; TEMP 97.2–97.5; O2SAT 88–97
[~2024-10-11] VITALS: Ht 157.5 cm; Wt 75.0 kg
[~2024-10-11 07:08] MED LIST changes: +LEVA15HF2 INH; -LEVAINH INH
[2024-10-11 07:40] LABS: BASO # 0.1 10^3/uL (0.0-0.2); BASO % 0.4 % (0.0-1.0); EOS # 0.1 10^3/uL (0.0-0.5); HEMATOCRIT 44.8 % (36.0-47.0); HEMOGLOBIN 13.6 g/dl (12.0-15.5); LYMPH # 2.3 10^3/uL (1.5-5.0); LYMPH % 17.2 % (24.0-44.0); MEAN CORPUSCULAR HGB CONC 30.4 g/dl (32.0-36.5); MEAN CORPUSCULAR VOLUME 108.7 fl (80.0-96.0); MONO # 0.8 10^3/uL (0.0-0.8); MONO % 6.1 % (2.0-8.0); NEUTROPHILS # 10.1 10^3/uL (1.5-8.5); NEUTROPHILS % 74.3 % (36.0-66.0); RED BLOOD COUNT 4.12 10^6/uL (4.00-5.40); WHITE BLOOD COUNT 13.5 10^3/uL (4.0-10.0)
[2024-10-11 07:51] LABS: PLATELET COUNT, AUTOMATED 374 10^3/uL (150-450)
[2024-10-11] MEDS: dexAMETHasone 20MG/5ML VIAL IV ONE (08:11)
[2024-10-11 08:14] LABS: ALBUMIN 3.5 G/DL (3.2-5.2); ALKALINE PHOSPHATASE 79 U/L (35-104); ALT/SGPT 18 U/L (7.0-40); AST/SGOT 13 U/L (<34); BILIRUBIN,DIRECT 0.1 MG/DL (<0.4); BILIRUBIN,TOTAL 0.5 MG/DL (0.3-1.2); BLOOD UREA NITROGEN 10 MG/DL (9-23); CALCIUM LEVEL 9.7 MG/DL (8.3-10.6); CARBON DIOXIDE LEVEL > 40.0 MMOL/L (20-31); CHLORIDE LEVEL 99 MMOL/L (98-107); CREATININE FOR GFR 0.55 MG/DL (0.55-1.30); GLOMERULAR FILTRATION RATE > 60.0 (>45); GLUCOSE, FASTING 159 MG/DL (74-106); POTASSIUM SERUM 4.3 MMOL/L (3.5-5.1); SODIUM LEVEL 142 MMOL/L (136-145); TOTAL PROTEIN 7.5 G/DL (5.7-8.2)
[2024-10-11] MEDS: IPRATROPIUM 0.5MG/ALBUTEROL 2.5MG INH SOL UD 3ML (DUONEB) NEB SCH ×3 (08:20→16:00)
[2024-10-11] MEDS: cefTRIAXone SOD 2 GM in DEXTROSE 5% (D5W) ADV/MINI-BAG 50 ML IV ONE (08:29)
[2024-10-11 08:38] LABS: ABG BASE EXCESS 8.9 (-2.0-2.0); ABG HCO3 39.7 MMOL/L (22.0-26.0); ABG O2 SATURATION 94.6 % (95.0-99.0); ABG PARTIAL PRESSURE O2 75.4 mmHg (75.0-100.0); ABG STANDARD HCO3 32.6 MMOL/L. (22.0-26.0); ABG TOTAL CO2 42.4 MMOL/L (23.0-31.0)
[2024-10-11 08:39] LABS: ABG pH (ARTERIAL) 7.261 UNITS (7.350-7.450)
[2024-10-11 08:45] LABS: ABG PARTIAL PRESSURE CO2 90.2 mmHg (35.0-45.0)
[2024-10-11] MEDS: DOXYCYCLINE HYCLATE 100 MG in DEXTROSE 5% (D5W) MINI-BAG PLU 100 ML IV ONE (09:05)
[2024-10-11] MEDS ORDERED: PRED10TA2 PO (09:37)
[2024-10-11] MEDS ORDERED: BUDE0.5S6 INH (09:37)
[2024-10-11] MEDS ORDERED: HOME MED LIST COMPLETE! XX SCH (09:40)
[2024-10-11] MEDS: TIOTROPIUM INHALER/CAPSULE (SPIRIVA) INH SCH (12:15)
[2024-10-11] MEDS: FORMOTEROL FUMARATE 20 MCG/2 ML INHALATION SOLUTION (PERFOROMIST) INH SCH (12:15)
[2024-10-11] MEDS: BUDESONIDE 0.5 MG/2 ML INHALATION SUSPENSION NEB SCH (12:15)
[2024-10-11] MEDS: guaiFENesin ER TABLET 600 MG TAB PO SCH (13:12)
[2024-10-11 13:16] LABS: ABG BASE EXCESS 10.3 (-2.0-2.0); ABG HCO3 40.4 MMOL/L (22.0-26.0); ABG O2 SATURATION 93.7 % (95.0-99.0); ABG PARTIAL PRESSURE O2 69.4 mmHg (75.0-100.0); ABG pH (ARTERIAL) 7.287 UNITS (7.350-7.450)
[2024-10-11 13:18] LABS: ABG PARTIAL PRESSURE CO2 86.5 mmHg (35.0-45.0)
[2024-10-11] MEDS: CEFTAROLINE FOSAMIL 600 MG in DEXTROSE 5% (D5W) ADV/MINI-BAG 50 ML IV SCH (16:03)
[2024-10-11] MEDS: methylPREDNISolone 40MG 1ML VIAL IV SCH (16:03)
[2024-10-11] MEDS: ACETAMINOPHEN 325 MG TAB PO PRN (17:04)
[2024-10-11 17:29] LABS: ABG BASE EXCESS 12.4 (-2.0-2.0); ABG HCO3 42.5 MMOL/L (22.0-26.0); ABG O2 SATURATION 97.5 % (95.0-99.0); ABG PARTIAL PRESSURE O2 99.4 mmHg (75.0-100.0); ABG STANDARD HCO3 36.1 MMOL/L. (22.0-26.0); ABG TOTAL CO2 45.2 MMOL/L (23.0-31.0); ABG pH (ARTERIAL) 7.299 UNITS (7.350-7.450)
[2024-10-11 17:31] LABS: ABG PARTIAL PRESSURE CO2 88.6 mmHg (35.0-45.0)
[2024-10-11] MEDS: DOXYCYCLINE HYCLATE 100MG TABLET PO SCH (20:24)
[2024-10-11] MEDS: ENOXAPARIN 40MG/0.4ML SYRINGE (J1650 PER 10MG) SC SCH (20:24)
[2024-10-12] VITALS (39 sets, daily range): BP systolic 106–124; BP diastolic 56–65; TEMP 96.7–97.6; O2SAT 84–97
[2024-10-12 05:59] LABS: ABG BASE EXCESS 11.4 (-2.0-2.0); ABG HCO3 39.5 MMOL/L (22.0-26.0); ABG O2 SATURATION 97.2 % (95.0-99.0); ABG PARTIAL PRESSURE O2 89.3 mmHg (75.0-100.0); ABG STANDARD HCO3 35.1 MMOL/L. (22.0-26.0); ABG TOTAL CO2 41.7 MMOL/L (23.0-31.0); ABG pH (ARTERIAL) 7.361 UNITS (7.350-7.450)
[2024-10-12 06:00] LABS: ABG PARTIAL PRESSURE CO2 71.3 mmHg (35.0-45.0)
[2024-10-12] MEDS: INSULIN LISPRO (NovoLOG) PER UNIT SC SCH ×2 (07:30→20:15)
[2024-10-12 08:05] LABS: BASO % 0.1 % (0.0-1.0); HEMATOCRIT 39.3 % (36.0-47.0); LYMPH # 0.6 10^3/uL (1.5-5.0); LYMPH % 3.9 % (24.0-44.0); MEAN CORPUSCULAR HEMOGLOBIN 32.6 pg (27.0-33.0); MEAN CORPUSCULAR HGB CONC 30.5 g/dl (32.0-36.5); MEAN CORPUSCULAR VOLUME 106.8 fl (80.0-96.0); MONO # 0.3 10^3/uL (0.0-0.8); MONO % 1.9 % (2.0-8.0); NEUTROPHILS # 13.5 10^3/uL (1.5-8.5); NEUTROPHILS % 93.5 % (36.0-66.0); PLATELET COUNT, AUTOMATED 280 10^3/uL (150-450); RED BLOOD COUNT 3.68 10^6/uL (4.00-5.40); WHITE BLOOD COUNT 14.4 10^3/uL (4.0-10.0)
[2024-10-12 08:41] LABS: BLOOD UREA NITROGEN 16 MG/DL (9-23); CALCIUM LEVEL 9.3 MG/DL (8.3-10.6); CARBON DIOXIDE LEVEL > 40.0 MMOL/L (20-31); CHLORIDE LEVEL 100 MMOL/L (98-107); CREATININE FOR GFR 0.57 MG/DL (0.55-1.30); GLOMERULAR FILTRATION RATE > 60.0 (>45); GLUCOSE, FASTING 242 MG/DL (74-106); POTASSIUM SERUM 4.2 MMOL/L (3.5-5.1); SODIUM LEVEL 142 MMOL/L (136-145)
[2024-10-12] MEDS ORDERED: ISOVUE-370 76% 100ML VIAL As Ordered ONE (08:53)
[2024-10-12] MEDS ORDERED: cefTRIAXone SOD 2 GM in DEXTROSE 5% (D5W) ADV/MINI-BAG 50 ML IV SCH ×2 (09:00)
[2024-10-12] MEDS ORDERED: cefTRIAXone SOD 1 GM in DEXTROSE 5% (D5W) ADV/MINI-BAG 50 ML IV SCH (09:00)
[2024-10-12] MEDS ORDERED: GLUCOSE 4 GM CHEW PO PRN (09:25)
[2024-10-12] MEDS ORDERED: DEXTROSE 50% 50ML SYRINGE IV PRN (09:25)
[2024-10-12] MEDS ORDERED: GLUCAGON INJ 1MG VIAL SC PRN (09:25)
[2024-10-12] MEDS ORDERED: oxyCODONE 5MG TAB PO PRN (09:30)
[2024-10-12] MEDS ORDERED: CYCLOBENZAPRINE 5MG TABLET PO PRN (09:30)
[2024-10-12] MEDS: LIDOCAINE 5% (LIDODERM) PATCH TD SCH (10:27)
[2024-10-12 10:50] LABS: HEMOGLOBIN A1c 6.2 % (4.0-6.0)
[2024-10-13] VITALS (27 sets, daily range): BP systolic 123–136; BP diastolic 58–66; PULSE 75; TEMP 97.4–97.6; O2SAT 88–97
[2024-10-13 06:47] LABS: BASO % 0.1 % (0.0-1.0); HEMATOCRIT 36.3 % (36.0-47.0); LYMPH # 0.6 10^3/uL (1.5-5.0); LYMPH % 3.4 % (24.0-44.0); MEAN CORPUSCULAR HGB CONC 30.3 g/dl (32.0-36.5); MEAN CORPUSCULAR VOLUME 105.5 fl (80.0-96.0); MONO # 0.3 10^3/uL (0.0-0.8); NEUTROPHILS # 15.6 10^3/uL (1.5-8.5); NEUTROPHILS % 93.8 % (36.0-66.0); PLATELET COUNT, AUTOMATED 271 10^3/uL (150-450); RED BLOOD COUNT 3.44 10^6/uL (4.00-5.40); WHITE BLOOD COUNT 16.7 10^3/uL (4.0-10.0)
[2024-10-13 07:14] LABS: BLOOD UREA NITROGEN 20 MG/DL (9-23); CARBON DIOXIDE LEVEL 40 MMOL/L (20-31); CHLORIDE LEVEL 98 MMOL/L (98-107); CREATININE FOR GFR 0.54 MG/DL (0.55-1.30); GLOMERULAR FILTRATION RATE > 60.0 (>45); GLUCOSE, FASTING 181 MG/DL (74-106); POTASSIUM SERUM 4.6 MMOL/L (3.5-5.1); SODIUM LEVEL 140 MMOL/L (136-145)
[2024-10-13] MEDS: methylPREDNISolone 40MG 1ML VIAL IV SCH (20:02)
[2024-10-14] VITALS (31 sets, daily range): BP systolic 130–184; BP diastolic 65–102; TEMP 97–97.5; O2SAT 89–98
[2024-10-14 05:48] LABS: BASO % 0.1 % (0.0-1.0); HEMATOCRIT 40.7 % (36.0-47.0); HEMOGLOBIN 12.4 g/dl (12.0-15.5); LYMPH # 0.8 10^3/uL (1.5-5.0); LYMPH % 4.6 % (24.0-44.0); MEAN CORPUSCULAR HEMOGLOBIN 31.9 pg (27.0-33.0); MEAN CORPUSCULAR HGB CONC 30.5 g/dl (32.0-36.5); MEAN CORPUSCULAR VOLUME 104.6 fl (80.0-96.0); MONO # 0.5 10^3/uL (0.0-0.8); MONO % 2.8 % (2.0-8.0); NEUTROPHILS # 15.4 10^3/uL (1.5-8.5); NEUTROPHILS % 91.5 % (36.0-66.0); PLATELET COUNT, AUTOMATED 328 10^3/uL (150-450); RED BLOOD COUNT 3.89 10^6/uL (4.00-5.40); WHITE BLOOD COUNT 16.8 10^3/uL (4.0-10.0)
[2024-10-14 06:18] LABS: BLOOD UREA NITROGEN 17 MG/DL (9-23); CALCIUM LEVEL 9.5 MG/DL (8.3-10.6); CARBON DIOXIDE LEVEL > 40.0 MMOL/L (20-31); CHLORIDE LEVEL 97 MMOL/L (98-107); CREATININE FOR GFR 0.57 MG/DL (0.55-1.30); GLOMERULAR FILTRATION RATE > 60.0 (>45); GLUCOSE, FASTING 198 MG/DL (74-106); POTASSIUM SERUM 4.5 MMOL/L (3.5-5.1); SODIUM LEVEL 143 MMOL/L (136-145)
[2024-10-14] MEDS: predniSONE 20 MG TAB PO ONE (13:39)
[2024-10-14] MEDS: CEFDINIR 300 MG CAP (OMNICEF) PO SCH (20:01)
[2024-10-15] VITALS (7 sets, daily range): BP systolic 133–145; BP diastolic 71–75; TEMP 97–98.8; O2SAT 93–96
[2024-10-15 06:22] LABS: BASO % 0.2 % (0.0-1.0); HEMATOCRIT 38.4 % (36.0-47.0); HEMOGLOBIN 11.9 g/dl (12.0-15.5); LYMPH # 0.9 10^3/uL (1.5-5.0); LYMPH % 7.4 % (24.0-44.0); MEAN CORPUSCULAR HEMOGLOBIN 32.8 pg (27.0-33.0); MEAN CORPUSCULAR VOLUME 105.8 fl (80.0-96.0); MONO # 0.5 10^3/uL (0.0-0.8); MONO % 4.4 % (2.0-8.0); NEUTROPHILS # 10.4 10^3/uL (1.5-8.5); NEUTROPHILS % 86.8 % (36.0-66.0); PLATELET COUNT, AUTOMATED 251 10^3/uL (150-450); RED BLOOD COUNT 3.63 10^6/uL (4.00-5.40); WHITE BLOOD COUNT 11.9 10^3/uL (4.0-10.0)
[2024-10-15 06:55] LABS: BLOOD UREA NITROGEN 23 MG/DL (9-23); CALCIUM LEVEL 8.6 MG/DL (8.3-10.6); CARBON DIOXIDE LEVEL > 40.0 MMOL/L (20-31); CHLORIDE LEVEL 100 MMOL/L (98-107); CREATININE FOR GFR 0.52 MG/DL (0.55-1.30); GLOMERULAR FILTRATION RATE > 60.0 (>45); GLUCOSE, FASTING 159 MG/DL (74-106); POTASSIUM SERUM 4.4 MMOL/L (3.5-5.1); SODIUM LEVEL 143 MMOL/L (136-145)
[2024-10-15] MEDS ORDERED: PRED10TA2 PO (08:35)
[2024-10-15] MEDS ORDERED: DOXY100T PO (08:35)
[2024-10-15] MEDS ORDERED: CEFD300CAP PO (08:35)
[2024-10-15] MEDS: predniSONE 20 MG TAB PO SCH (08:59)
== END 2024-10-15 14:02 | disposition home health service (06) | DRG 177 ==
LOC: M ED 07:08 → EEVIPCON 09:54 → M ED INP 09:54 → M PCU 11:06
PROVIDERS: ADMIT Internal Medicine; ATTEND Internal Medicine
PROC: B246ZZZ Ultrasonography of Right and Left Heart (ICD-10-PCS; principal; 2024-10-13)
DX: J15.212 Pneumonia due to Methicillin resistant Staphylococcus aureus (principal); J96.21 Acute and chronic respiratory failure with hypoxia; J96.22 Acute and chronic respiratory failure with hypercapnia; J44.0 Chronic obstructive pulmonary disease with (acute) lower respiratory infection; I50.32 Chronic diastolic (congestive) heart failure; E87.4 Mixed disorder of acid-base balance; J44.1 Chronic obstructive pulmonary disease with (acute) exacerbation; F17.210 Nicotine dependence, cigarettes, uncomplicated; F41.9 Anxiety disorder, unspecified; K21.9 Gastro-esophageal reflux disease without esophagitis; J43.9 Emphysema, unspecified; J45.909 Unspecified asthma, uncomplicated; G47.33 Obstructive sleep apnea (adult) (pediatric); Z99.81 Dependence on supplemental oxygen; Z79.51 Long term (current) use of inhaled steroids; Z79.899 Other long term (current) drug therapy; Z91.018 Allergy to other foods; Z91.040 Latex allergy status

== ENCOUNTER → 2024-11-13 | Outpatient (CLI) | payer MEDICARE ==
[~2024-11-13] MED LIST changes: +BUDE0.5S6 INH; +CEFD300CAP PO; +DOXY100T PO
== END ==
LOC: M PLAIMG 10:05
PROVIDERS: ATTEND Internal Medicine Pulmonary Disease
DX: R91.8 Other nonspecific abnormal finding of lung field (principal); J18.9 Pneumonia, unspecified organism

== ENCOUNTER → 2024-11-27 | Outpatient (REF) | payer MEDICARE | LOC: M LAB REF 12:54 | PROVIDERS: ATTEND Internal Medicine Pulmonary Disease | DX: R91.8 Other nonspecific abnormal finding of lung field (principal) ==

== ENCOUNTER → 2024-12-19 | Outpatient (CLI) | payer MEDICARE ==
[~2024-12-19] MED LIST changes: +BUDE10.7 INH; +HYDR-3363 PO; +ROSU10TA61 PO
[2024-12-19 16:03] LABS: CHOLESTEROL RISK RATIO 5.49 (<5); HDL CHOLESTEROL 46.6 MG/DL (>40); LDL CHOLESTEROL 166.4 MG/DL (<100); NON-HDL-C 209.4 MG/DL
== END ==
LOC: M PLALAB 13:38
PROVIDERS: ATTEND Physician Assistant
DX: I50.32 Chronic diastolic (congestive) heart failure (principal); I25.10 Atherosclerotic heart disease of native coronary artery without angina pectoris

== ENCOUNTER 2024-12-29 13:57 | Inpatient (IN) | payer MEDICARE ==
[~2024-12-29] VITALS: Ht 157.5 cm; Wt 75.0 kg
[~2024-12-29 13:57] MED LIST changes: -BUDE10.7 INH; -HYDR-3363 PO; -ROSU10TA61 PO
[2024-12-29 14:35] LABS: BASO # 0.1 10^3/uL (0.0-0.2); BASO % 0.6 % (0.0-1.0); EOS # 0.2 10^3/uL (0.0-0.5); EOS % 1.9 % (0.0-3.0); HEMATOCRIT 39.8 % (36.0-47.0); HEMOGLOBIN 12.1 g/dl (12.0-15.5); LYMPH # 1.8 10^3/uL (1.5-5.0); LYMPH % 19.8 % (24.0-44.0); MEAN CORPUSCULAR HEMOGLOBIN 32.4 pg (27.0-33.0); MEAN CORPUSCULAR HGB CONC 30.4 g/dl (32.0-36.5); MEAN CORPUSCULAR VOLUME 106.4 fl (80.0-96.0); MONO # 0.6 10^3/uL (0.0-0.8); MONO % 6.3 % (2.0-8.0); NEUTROPHILS # 6.4 10^3/uL (1.5-8.5); PLATELET COUNT, AUTOMATED 291 10^3/uL (150-450); RED BLOOD COUNT 3.74 10^6/uL (4.00-5.40)
[2024-12-29] MEDS: IPRATROPIUM 0.5MG/ALBUTEROL 2.5MG INH SOL UD 3ML (DUONEB) NEB PRN (14:55)
[2024-12-29 15:03] LABS: ABG BASE EXCESS 12.1 (-2.0-2.0); ABG HCO3 40.3 MMOL/L (22.0-26.0); ABG O2 SATURATION 92.5 % (95.0-99.0); ABG PARTIAL PRESSURE O2 64.3 mmHg (75.0-100.0); ABG STANDARD HCO3 35.8 MMOL/L. (22.0-26.0); ABG TOTAL CO2 42.5 MMOL/L (23.0-31.0); ABG pH (ARTERIAL) 7.366 UNITS (7.350-7.450)
[2024-12-29 15:07] LABS: ABG PARTIAL PRESSURE CO2 71.9 mmHg (35.0-45.0)
[2024-12-29 15:10] LABS: ALBUMIN 4.1 G/DL (3.2-5.2); ALKALINE PHOSPHATASE 81 U/L (35-104); ALT/SGPT 14 U/L (7.0-40); AST/SGOT 13 U/L (<34); BILIRUBIN,DIRECT 0.2 MG/DL (<0.4); BILIRUBIN,TOTAL 0.6 MG/DL (0.3-1.2); BLOOD UREA NITROGEN 6 MG/DL (9-23); CALCIUM LEVEL 9.3 MG/DL (8.3-10.6); CARBON DIOXIDE LEVEL > 40.0 MMOL/L (20-31); CHLORIDE LEVEL 97 MMOL/L (98-107); CREATININE FOR GFR 0.54 MG/DL (0.55-1.30); FREE T4 0.97 NG/DL (0.89-1.76); GLOMERULAR FILTRATION RATE > 60.0 (>45); GLUCOSE, FASTING 146 MG/DL (74-106); POTASSIUM SERUM 3.9 MMOL/L (3.5-5.1); SODIUM LEVEL 143 MMOL/L (136-145); TOTAL PROTEIN 7.2 G/DL (5.7-8.2)
[2024-12-29] MEDS ORDERED: ISOVUE-370 76% 100ML VIAL As Ordered ONE (15:35)
[2024-12-29 15:43] LABS: CK-MB VALUE MASS < 1.0 NG/ML (<3.6)
[2024-12-29 15:45] LABS: CPK CREATINE PHOSPHOKINASE 46 U/L (34-145); MB/CK RELATIVE INDEX 2.17 (< OR =4)
[2024-12-29 16:22] LABS: CK-MB VALUE MASS < 1.0 NG/ML (<3.6); CPK CREATINE PHOSPHOKINASE 37 U/L (34-145)
[2024-12-29] MEDS ORDERED: IPRATROPIUM 0.5MG/ALBUTEROL 2.5MG INH SOL UD 3ML (DUONEB) NEB PRN (19:20)
[2024-12-29] MEDS ORDERED: ROSU10TA61 PO (20:08)
[2024-12-29] MEDS ORDERED: BUDE10.7 INH (20:08)
[2024-12-29] MEDS ORDERED: HYDR-3363 PO (20:08)
[2024-12-29] MEDS ORDERED: HOME MED LIST COMPLETE! XX SCH (20:30)
[2024-12-29] MEDS: methylPREDNISolone 125MG 2ML VIAL IV SCH (20:57)
[2024-12-29] MEDS: IPRATROPIUM 0.5MG/ALBUTEROL 2.5MG INH SOL UD 3ML (DUONEB) NEB SCH (21:21)
[2024-12-30] MEDS: MOXIFLOXACIN 400 MG TAB PO SCH (06:20)
[2024-12-30 07:14] LABS: HEMATOCRIT 37.5 % (36.0-47.0); HEMOGLOBIN 11.4 g/dl (12.0-15.5); MEAN CORPUSCULAR HEMOGLOBIN 31.8 pg (27.0-33.0); MEAN CORPUSCULAR HGB CONC 30.4 g/dl (32.0-36.5); MEAN CORPUSCULAR VOLUME 104.7 fl (80.0-96.0); PLATELET COUNT, AUTOMATED 272 10^3/uL (150-450); RED BLOOD COUNT 3.58 10^6/uL (4.00-5.40); WHITE BLOOD COUNT 8.1 10^3/uL (4.0-10.0)
[2024-12-30 07:50] LABS: PROCALCITONIN 0.05 ng/ml
[2024-12-30] MEDS: PANTOPRAZOLE 40MG TAB (PROTONIX) PO SCH (07:50)
[2024-12-30 07:59] LABS: ALBUMIN 3.5 G/DL (3.2-5.2); ALKALINE PHOSPHATASE 68 U/L (35-104); ALT/SGPT 13 U/L (7.0-40); AST/SGOT 10 U/L (<34); BILIRUBIN,TOTAL 0.4 MG/DL (0.3-1.2); BLOOD UREA NITROGEN 12 MG/DL (9-23); CALCIUM LEVEL 8.8 MG/DL (8.3-10.6); CARBON DIOXIDE LEVEL > 40.0 MMOL/L (20-31); CHLORIDE LEVEL 100 MMOL/L (98-107); CREATININE FOR GFR 0.45 MG/DL (0.55-1.30); GLOMERULAR FILTRATION RATE > 60.0 (>45); GLUCOSE, FASTING 159 MG/DL (74-106); POTASSIUM SERUM 4.1 MMOL/L (3.5-5.1); SODIUM LEVEL 145 MMOL/L (136-145); TOTAL PROTEIN 6.4 G/DL (5.7-8.2)
[2024-12-30] MEDS ORDERED: guaiFENesin ER TABLET 600 MG TAB PO PRN (13:15)
[2024-12-30] MEDS: ACETAMINOPHEN 325 MG TAB PO ONE (14:25)
[2024-12-30 15:00] VITALS: BP 112/70; TEMP 97.3; O2SAT 87
[2024-12-30 20:00] VITALS: BP 126/76; TEMP 97.2; O2SAT 91
[2024-12-30] MEDS: ROSUVASTATIN 10 MG TAB (CRESTOR) PO SCH (20:57)
[2024-12-31 04:56] VITALS: BP 126/76; TEMP 96.8; O2SAT 91
[2024-12-31 09:27] LABS: HEMATOCRIT 38.7 % (36.0-47.0); HEMOGLOBIN 11.8 g/dl (12.0-15.5); MEAN CORPUSCULAR HEMOGLOBIN 32.6 pg (27.0-33.0); MEAN CORPUSCULAR HGB CONC 30.5 g/dl (32.0-36.5); MEAN CORPUSCULAR VOLUME 106.9 fl (80.0-96.0); PLATELET COUNT, AUTOMATED 308 10^3/uL (150-450); RED BLOOD COUNT 3.62 10^6/uL (4.00-5.40); WHITE BLOOD COUNT 14.9 10^3/uL (4.0-10.0)
[2024-12-31 10:00] LABS: ALBUMIN 3.6 G/DL (3.2-5.2); ALKALINE PHOSPHATASE 68 U/L (35-104); ALT/SGPT 13 U/L (7.0-40); AST/SGOT 11 U/L (<34); BILIRUBIN,TOTAL 0.3 MG/DL (0.3-1.2); BLOOD UREA NITROGEN 16 MG/DL (9-23); CALCIUM LEVEL 9.1 MG/DL (8.3-10.6); CARBON DIOXIDE LEVEL > 40.0 MMOL/L (20-31); CHLORIDE LEVEL 100 MMOL/L (98-107); CREATININE FOR GFR 0.52 MG/DL (0.55-1.30); GLOMERULAR FILTRATION RATE > 60.0 (>45); GLUCOSE, FASTING 172 MG/DL (74-106); MAGNESIUM LEVEL 2.2 MG/DL (1.8-2.4); POTASSIUM SERUM 4.6 MMOL/L (3.5-5.1); SODIUM LEVEL 147 MMOL/L (136-145); TOTAL PROTEIN 6.7 G/DL (5.7-8.2)
[2024-12-31 12:00] VITALS: BP 120/75; TEMP 97.2; O2SAT 87
[2024-12-31 20:58] VITALS: BP 122/67; TEMP 97.2; O2SAT 93
[2024-12-31] MEDS: ACETAMINOPHEN 325 MG TAB PO PRN (23:31)
[2025-01-01 03:53] VITALS: BP_SYST 145; BP_SYST 149; BP_DIAS 71; BP_DIAS 75; TEMP 96.8; O2SAT 94
[2025-01-01 05:00] LABS: HEMATOCRIT 34.8 % (36.0-47.0); HEMOGLOBIN 10.8 g/dl (12.0-15.5); MEAN CORPUSCULAR HEMOGLOBIN 32.9 pg (27.0-33.0); MEAN CORPUSCULAR VOLUME 106.1 fl (80.0-96.0); PLATELET COUNT, AUTOMATED 271 10^3/uL (150-450); RED BLOOD COUNT 3.28 10^6/uL (4.00-5.40); WHITE BLOOD COUNT 14.5 10^3/uL (4.0-10.0)
[2025-01-01 05:02] VITALS: BP 145/75; TEMP 96.8
[2025-01-01 05:38] LABS: ALBUMIN 3.2 G/DL (3.2-5.2); ALKALINE PHOSPHATASE 59 U/L (35-104); ALT/SGPT 12 U/L (7.0-40); AST/SGOT < 8 U/L (<34); BILIRUBIN,TOTAL 0.3 MG/DL (0.3-1.2); BLOOD UREA NITROGEN 24 MG/DL (9-23); CALCIUM LEVEL 8.8 MG/DL (8.3-10.6); CARBON DIOXIDE LEVEL 39 MMOL/L (20-31); CHLORIDE LEVEL 102 MMOL/L (98-107); CREATININE FOR GFR 0.49 MG/DL (0.55-1.30); GLOMERULAR FILTRATION RATE > 60.0 (>45); GLUCOSE, FASTING 195 MG/DL (74-106); MAGNESIUM LEVEL 2.1 MG/DL (1.8-2.4); POTASSIUM SERUM 4.4 MMOL/L (3.5-5.1); SODIUM LEVEL 145 MMOL/L (136-145); TOTAL PROTEIN 5.9 G/DL (5.7-8.2)
[2025-01-01 11:28] VITALS: BP 107/71; TEMP 96.8; O2SAT 93
[2025-01-01] MEDS ORDERED: PANT40TA29 PO (16:32)
[2025-01-01] MEDS ORDERED: CEFP200T PO (16:43)
[2025-01-01] MEDS ORDERED: PRED10TA2 PO (16:44)
== END 2025-01-01 19:17 | disposition home health service (06) | DRG 190 ==
LOC: EDBD 13:57 → M ED 13:57 → M ED INP 13:58 → M MSPAV 12-30 14:58 → OBSVTOIN 12-31 16:59
PROVIDERS: ADMIT Student in an Organized Health Care Education/Training Program; ATTEND Student in an Organized Health Care Education/Training Program
DX: J44.1 Chronic obstructive pulmonary disease with (acute) exacerbation (principal); J96.21 Acute and chronic respiratory failure with hypoxia; J96.22 Acute and chronic respiratory failure with hypercapnia; I50.32 Chronic diastolic (congestive) heart failure; G47.33 Obstructive sleep apnea (adult) (pediatric); F17.200 Nicotine dependence, unspecified, uncomplicated; F41.9 Anxiety disorder, unspecified; K21.9 Gastro-esophageal reflux disease without esophagitis; Z91.018 Allergy to other foods; Z91.040 Latex allergy status; Z79.899 Other long term (current) drug therapy; Z79.52 Long term (current) use of systemic steroids; R73.9 Hyperglycemia, unspecified; M62.838 Other muscle spasm

== ENCOUNTER 2025-01-19 05:15 | Inpatient (IN) | payer MEDICARE ==
[2025-01-19] VITALS (7 sets, daily range): BP systolic 127–133; BP diastolic 62–84; TEMP 97.3–99.2; O2SAT 88–98
[~2025-01-19] VITALS: Ht 157.5 cm; Wt 72.8 kg
[~2025-01-19 05:15] MED LIST changes: +BUDE10.7 INH; +CEFP200T PO; +HYDR-3363 PO; +PANT40TA29 PO; +ROSU10TA61 PO
[2025-01-19 05:34] LABS: VENOUS BASE EXCESS 12.3 (-2.0-2.0); VENOUS HCO3 43.6 MMOL/L (23.0-27.0); VENOUS O2 SATURATION 98.6 % (60.0-80.0); VENOUS PARTIAL PRESSURE CO2 99.9 mmHg (38.0-50.0); VENOUS PARTIAL PRESSURE O2 165.2 mmHg (30.0-50.0); VENOUS PH 7.258 UNITS (7.330-7.430); VENOUS STANDARD HCO3 36.1 MMOL/L; VENOUS TOTAL CO2 46.7 MMOL/L (24.0-28.0)
[2025-01-19] MEDS: methylPREDNISolone 125MG 2ML VIAL IV ONE (05:42)
[2025-01-19 05:43] LABS: BASO % 0.1 % (0.0-1.0); EOS # 0.1 10^3/uL (0.0-0.5); EOS % 0.6 % (0.0-3.0); HEMATOCRIT 40.8 % (36.0-47.0); HEMOGLOBIN 12.2 g/dl (12.0-15.5); LYMPH # 3.2 10^3/uL (1.5-5.0); LYMPH % 20.6 % (24.0-44.0); MEAN CORPUSCULAR HEMOGLOBIN 32.5 pg (27.0-33.0); MEAN CORPUSCULAR HGB CONC 29.9 g/dl (32.0-36.5); MEAN CORPUSCULAR VOLUME 108.8 fl (80.0-96.0); MONO % 6.3 % (2.0-8.0); NEUTROPHILS # 11.2 10^3/uL (1.5-8.5); NEUTROPHILS % 71.8 % (36.0-66.0); PLATELET COUNT, AUTOMATED 267 10^3/uL (150-450); RED BLOOD COUNT 3.75 10^6/uL (4.00-5.40); WHITE BLOOD COUNT 15.6 10^3/uL (4.0-10.0)
[2025-01-19] MEDS: IPRATROPIUM 0.5MG/ALBUTEROL 2.5MG INH SOL UD 3ML (DUONEB) NEB SCH ×2 (05:43→10:30)
[2025-01-19 05:53] LABS: ABG BASE EXCESS 12.3 (-2.0-2.0); ABG HCO3 42.3 MMOL/L (22.0-26.0); ABG O2 SATURATION 96.7 % (95.0-99.0); ABG PARTIAL PRESSURE O2 93.9 mmHg (75.0-100.0); ABG TOTAL CO2 45.1 MMOL/L (23.0-31.0); ABG pH (ARTERIAL) 7.293 UNITS (7.350-7.450)
[2025-01-19 05:56] LABS: ABG PARTIAL PRESSURE CO2 89.4 mmHg (35.0-45.0)
[2025-01-19 06:16] LABS: ALBUMIN 3.7 G/DL (3.2-5.2); ALKALINE PHOSPHATASE 60 U/L (35-104); ALT/SGPT 11 U/L (7.0-40); AST/SGOT < 8 U/L (<34); BILIRUBIN,DIRECT 0.2 MG/DL (<0.4); BILIRUBIN,TOTAL 0.5 MG/DL (0.3-1.2); BLOOD UREA NITROGEN 12 MG/DL (9-23); CALCIUM LEVEL 9.1 MG/DL (8.3-10.6); CARBON DIOXIDE LEVEL > 40.0 MMOL/L (20-31); CHLORIDE LEVEL 99 MMOL/L (98-107); CREATININE FOR GFR 0.52 MG/DL (0.55-1.30); GLOMERULAR FILTRATION RATE > 60.0 (>45); GLUCOSE, FASTING 174 MG/DL (74-106); POTASSIUM SERUM 4.1 MMOL/L (3.5-5.1); SODIUM LEVEL 147 MMOL/L (136-145); TOTAL PROTEIN 6.6 G/DL (5.7-8.2)
[2025-01-19 06:34] LABS: CK-MB VALUE MASS 1.5 NG/ML (<3.6)
[2025-01-19 06:38] LABS: CPK CREATINE PHOSPHOKINASE 32 U/L (34-145); MB/CK RELATIVE INDEX 4.68 (< OR =4)
[2025-01-19] MEDS: GLYCOPYRROLATE INJ 0.2 MG/ML 2 ML VIAL NEB SCH (08:00)
[2025-01-19] MEDS: BUDESONIDE 0.25 MG/2 ML INHALATION SUSPENSION INH SCH (08:00)
[2025-01-19] MEDS: FORMOTEROL FUMARATE 20 MCG/2 ML INHALATION SOLUTION (PERFOROMIST) INH SCH (08:00)
[2025-01-19] MEDS ORDERED: HOME MED LIST COMPLETE! XX SCH (09:35)
[2025-01-19] MEDS ORDERED: CEFP200T PO (09:35)
[2025-01-19] MEDS ORDERED: PANT40TA29 PO (09:35)
[2025-01-19 09:36] LABS: ABG BASE EXCESS 13.2 (-2.0-2.0); ABG HCO3 43.1 MMOL/L (22.0-26.0); ABG O2 SATURATION 94.5 % (95.0-99.0); ABG PARTIAL PRESSURE O2 72.2 mmHg (75.0-100.0); ABG STANDARD HCO3 36.9 MMOL/L. (22.0-26.0); ABG TOTAL CO2 45.8 MMOL/L (23.0-31.0); ABG pH (ARTERIAL) 7.307 UNITS (7.350-7.450)
[2025-01-19 09:37] LABS: ABG PARTIAL PRESSURE CO2 88.1 mmHg (35.0-45.0)
[2025-01-19] MEDS: DOXYCYCLINE HYCLATE 100MG TABLET PO SCH (11:59)
[2025-01-19] MEDS: ENOXAPARIN 40MG/0.4ML SYRINGE (J1650 PER 10MG) SC SCH (11:59)
[2025-01-19] MEDS: FUROSEMIDE 20 MG TAB PO ONE (12:00)
[2025-01-19] MEDS: PANTOPRAZOLE 40MG TAB (PROTONIX) PO SCH (12:00)
[2025-01-19] MEDS: NICOTINE 7 MG/24 HR TRANSDERMAL TD SCH (12:12)
[2025-01-19] MEDS ORDERED: LIDO5DIS41 TD (13:29)
[2025-01-19] MEDS ORDERED: NICO7DIS24 TD (13:29)
[2025-01-19] MEDS: IPRATROPIUM 0.5MG/ALBUTEROL 2.5MG INH SOL UD 3ML (DUONEB) NEB PRN (13:41)
[2025-01-19] MEDS: methylPREDNISolone 40MG 1ML VIAL IV SCH (18:07)
[2025-01-19] MEDS: BUDESONIDE 0.5 MG/2 ML INHALATION SUSPENSION INH SCH (19:05)
[2025-01-19] MEDS: LIDOCAINE 5% (LIDODERM) PATCH TD SCH (19:42)
[2025-01-19] MEDS: SENNA 8.6 MG TAB (SENOKOT) PO SCH (20:30)
[2025-01-19] MEDS: ROSUVASTATIN 10 MG TAB (CRESTOR) PO SCH (20:30)
[2025-01-19] MEDS: DOCUSATE SODIUM 100MG CAPSULE PO SCH (20:30)
[2025-01-20] VITALS (7 sets, daily range): BP systolic 125–157; BP diastolic 56–87; TEMP 97–98.8; O2SAT 90–98
[2025-01-20] MEDS: ACETAMINOPHEN 325 MG TAB PO PRN (00:23)
[2025-01-20 04:57] LABS: BASO % 0.1 % (0.0-1.0); HEMATOCRIT 34.8 % (36.0-47.0); HEMOGLOBIN 10.8 g/dl (12.0-15.5); LYMPH # 0.6 10^3/uL (1.5-5.0); LYMPH % 5.7 % (24.0-44.0); MEAN CORPUSCULAR HEMOGLOBIN 32.9 pg (27.0-33.0); MEAN CORPUSCULAR VOLUME 106.1 fl (80.0-96.0); MONO # 0.5 10^3/uL (0.0-0.8); MONO % 4.4 % (2.0-8.0); NEUTROPHILS # 9.6 10^3/uL (1.5-8.5); NEUTROPHILS % 89.1 % (36.0-66.0); PLATELET COUNT, AUTOMATED 178 10^3/uL (150-450); RED BLOOD COUNT 3.28 10^6/uL (4.00-5.40); WHITE BLOOD COUNT 10.7 10^3/uL (4.0-10.0)
[2025-01-20 05:36] LABS: ALBUMIN 3.3 G/DL (3.2-5.2); ALKALINE PHOSPHATASE 55 U/L (35-104); ALT/SGPT 10 U/L (7.0-40); AST/SGOT < 8 U/L (<34); BILIRUBIN,TOTAL 0.6 MG/DL (0.3-1.2); BLOOD UREA NITROGEN 18 MG/DL (9-23); CARBON DIOXIDE LEVEL > 40.0 MMOL/L (20-31); CHLORIDE LEVEL 97 MMOL/L (98-107); CREATININE FOR GFR 0.47 MG/DL (0.55-1.30); GLOMERULAR FILTRATION RATE > 60.0 (>45); GLUCOSE, FASTING 229 MG/DL (74-106); SODIUM LEVEL 144 MMOL/L (136-145); TOTAL PROTEIN 5.8 G/DL (5.7-8.2)
[2025-01-20] MEDS ORDERED: LIDOCAINE 5% (LIDODERM) PATCH TD SCH (09:00)
[2025-01-20] MEDS: FUROSEMIDE 20 MG TAB PO SCH (09:47)
[2025-01-20] MEDS: NYSTATIN 500,000U/5ML SUSP UDC SS SCH (09:47)
[2025-01-20 11:01] LABS: PROCALCITONIN <0.04 ng/ml
[2025-01-20] MEDS ORDERED: GLUCAGON INJ 1MG VIAL SC PRN (12:40)
[2025-01-20] MEDS ORDERED: DEXTROSE 50% 50ML SYRINGE IV PRN (12:40)
[2025-01-20] MEDS ORDERED: GLUCOSE 4 GM CHEW PO PRN (12:40)
[2025-01-20 13:11] LABS: CHOLESTEROL LEVEL 144 MG/DL (<200); CHOLESTEROL RISK RATIO 2.51 (<5); HDL CHOLESTEROL 57.2 MG/DL (>40); NON-HDL-C 86.8 MG/DL; TRIGLYCERIDES LEVEL 144 MG/DL (<150)
[2025-01-20] MEDS: INSULIN LISPRO (NovoLOG) PER UNIT SC SCH (13:42)
[2025-01-20] MEDS ORDERED: SODIUM CHLORIDE NASAL 0.65% SPRAY BTL (OCEAN) PRN (14:45)
[2025-01-20] MEDS: methylPREDNISolone 125MG 2ML VIAL IV SCH (17:27)
[2025-01-20] MEDS: guaiFENesin ER TABLET 600 MG TAB PO SCH (20:06)
[2025-01-21] VITALS: TEMP 97.2; O2SAT 92
[2025-01-21 04:00] VITALS: BP 142/69; TEMP 96.8; O2SAT 93
[2025-01-21 04:33] LABS: HEMATOCRIT 35.6 % (36.0-47.0); MEAN CORPUSCULAR HEMOGLOBIN 32.4 pg (27.0-33.0); MEAN CORPUSCULAR HGB CONC 30.9 g/dl (32.0-36.5); MEAN CORPUSCULAR VOLUME 104.7 fl (80.0-96.0); PLATELET COUNT, AUTOMATED 180 10^3/uL (150-450); WHITE BLOOD COUNT 11.2 10^3/uL (4.0-10.0)
[2025-01-21 05:05] LABS: ALBUMIN 3.2 G/DL (3.2-5.2); ALKALINE PHOSPHATASE 54 U/L (35-104); ALT/SGPT 10 U/L (7.0-40); AST/SGOT < 8 U/L (<34); BILIRUBIN,TOTAL 0.5 MG/DL (0.3-1.2); BLOOD UREA NITROGEN 18 MG/DL (9-23); CALCIUM LEVEL 8.8 MG/DL (8.3-10.6); CARBON DIOXIDE LEVEL > 40.0 MMOL/L (20-31); CHLORIDE LEVEL 94 MMOL/L (98-107); CREATININE FOR GFR 0.46 MG/DL (0.55-1.30); GLOMERULAR FILTRATION RATE > 60.0 (>45); GLUCOSE, FASTING 264 MG/DL (74-106); POTASSIUM SERUM 4.2 MMOL/L (3.5-5.1); SODIUM LEVEL 144 MMOL/L (136-145); TOTAL PROTEIN 5.8 G/DL (5.7-8.2)
[2025-01-21 07:30] VITALS: BP 133/66; TEMP 97.1; O2SAT 98
[2025-01-21] MEDS: LanTUS (INSULIN GLARGINE INJ) 1 UNITS/0.01 ML SC SCH (08:58)
[2025-01-21] MEDS ORDERED: predniSONE 20 MG TAB PO SCH (09:00)
[2025-01-21] MEDS: LanTUS (INSULIN GLARGINE INJ) 1 UNITS/0.01 ML SC ONE (12:42)
[2025-01-21 14:12] VITALS: BP 131/63; TEMP 97.2; O2SAT 94
[2025-01-21 15:03] VITALS: BP 128/71; O2SAT 92
[2025-01-21] MEDS ORDERED: DOXY100T PO (18:47)
[2025-01-21] MEDS ORDERED: PRED20TA PO (18:47)
[2025-01-21] MEDS ORDERED: MUCI600T31 PO (18:47)
[2025-01-21] MEDS ORDERED: COLA100C5 PO (18:47)
[2025-01-21 20:46] VITALS: BP 117/72; TEMP 97.3; O2SAT 93
[2025-01-22 01:24] VITALS: O2SAT 97
[2025-01-22 04:42] VITALS: BP 133/74; TEMP 97.1; O2SAT 96
[2025-01-22 06:26] LABS: HEMOGLOBIN 11.1 g/dl (12.0-15.5); MEAN CORPUSCULAR HEMOGLOBIN 32.8 pg (27.0-33.0); MEAN CORPUSCULAR HGB CONC 30.8 g/dl (32.0-36.5); MEAN CORPUSCULAR VOLUME 106.5 fl (80.0-96.0); PLATELET COUNT, AUTOMATED 164 10^3/uL (150-450); RED BLOOD COUNT 3.38 10^6/uL (4.00-5.40); WHITE BLOOD COUNT 8.6 10^3/uL (4.0-10.0)
[2025-01-22 06:52] LABS: ALBUMIN 3.1 G/DL (3.2-5.2); ALKALINE PHOSPHATASE 50 U/L (35-104); ALT/SGPT < 9 U/L (7.0-40); AST/SGOT < 8 U/L (<34); BILIRUBIN,TOTAL 0.6 MG/DL (0.3-1.2); BLOOD UREA NITROGEN 19 MG/DL (9-23); CALCIUM LEVEL 8.8 MG/DL (8.3-10.6); CARBON DIOXIDE LEVEL > 40.0 MMOL/L (20-31); CHLORIDE LEVEL 93 MMOL/L (98-107); CREATININE FOR GFR 0.54 MG/DL (0.55-1.30); GLOMERULAR FILTRATION RATE > 60.0 (>45); GLUCOSE, FASTING 117 MG/DL (74-106); POTASSIUM SERUM 3.2 MMOL/L (3.5-5.1); SODIUM LEVEL 144 MMOL/L (136-145); TOTAL PROTEIN 5.5 G/DL (5.7-8.2)
[2025-01-22] MEDS: POTASSIUM CHLORIDE 10MEQ SR TABLET PO ONE ×2 (08:55→10:08)
[2025-01-22] MEDS: predniSONE 20 MG TAB PO SCH (08:56)
[2025-01-22] MEDS: LanTUS (INSULIN GLARGINE INJ) 1 UNITS/0.01 ML SC SCH (08:57)
[2025-01-22] MEDS ORDERED: METF-839 PO (10:45)
== END 2025-01-22 11:13 | disposition home health service (06) | DRG 189 ==
LOC: EDBD 05:15 → M ED 05:15 → M ED INP 08:29 → M ICU 11:32 → M MSPAV 01-21 15:02
PROVIDERS: ADMIT Internal Medicine Pulmonary Disease; ATTEND Internal Medicine
DX: J96.22 Acute and chronic respiratory failure with hypercapnia (principal); I50.32 Chronic diastolic (congestive) heart failure; J44.1 Chronic obstructive pulmonary disease with (acute) exacerbation; E87.0 Hyperosmolality and hypernatremia; B37.0 Candidal stomatitis; J96.21 Acute and chronic respiratory failure with hypoxia; J43.1 Panlobular emphysema; I25.10 Atherosclerotic heart disease of native coronary artery without angina pectoris; G89.29 Other chronic pain; M54.9 Dorsalgia, unspecified; K59.00 Constipation, unspecified; Z99.81 Dependence on supplemental oxygen; G47.33 Obstructive sleep apnea (adult) (pediatric); K21.9 Gastro-esophageal reflux disease without esophagitis; D72.829 Elevated white blood cell count, unspecified; Z79.52 Long term (current) use of systemic steroids; F17.200 Nicotine dependence, unspecified, uncomplicated; F41.9 Anxiety disorder, unspecified; J45.909 Unspecified asthma, uncomplicated; Z79.899 Other long term (current) drug therapy; F17.210 Nicotine dependence, cigarettes, uncomplicated; Z91.018 Allergy to other foods; Z91.040 Latex allergy status

== ENCOUNTER 2025-02-11 01:16 | Inpatient (IN) | payer MEDICARE ==
[~2025-02-11] VITALS: Ht 157.5 cm; Wt 67.7 kg
[2025-02-11] VITALS (8 sets, daily range): BP systolic 116–144; BP diastolic 61–97; TEMP 97.5–97.7; O2SAT 84–97
[~2025-02-11 01:16] MED LIST changes: +COLA100C5 PO; +LIDO5DIS41 TD; +METF-839 PO; +MUCI600T31 PO; +NICO7DIS24 TD
[2025-02-11] MEDS: IPRATROPIUM 0.5MG/ALBUTEROL 2.5MG INH SOL UD 3ML NEB PRN (01:44)
[2025-02-11 01:45] LABS: BASO % 0.3 % (0.0-1.0); EOS # 0.1 10^3/uL (0.0-0.5); EOS % 0.4 % (0.0-3.0); HEMATOCRIT 40.4 % (36.0-47.0); HEMOGLOBIN 12.5 g/dl (12.0-15.5); LYMPH % 20.2 % (24.0-44.0); MEAN CORPUSCULAR HGB CONC 30.9 g/dl (32.0-36.5); MEAN CORPUSCULAR VOLUME 106.6 fl (80.0-96.0); MONO # 0.8 10^3/uL (0.0-0.8); MONO % 5.7 % (2.0-8.0); NEUTROPHILS # 10.6 10^3/uL (1.5-8.5); NEUTROPHILS % 72.6 % (36.0-66.0); PLATELET COUNT, AUTOMATED 261 10^3/uL (150-450); RED BLOOD COUNT 3.79 10^6/uL (4.00-5.40); WHITE BLOOD COUNT 14.6 10^3/uL (4.0-10.0)
[2025-02-11 01:52] LABS: VENOUS BASE EXCESS 9.3 (-2.0-2.0); VENOUS HCO3 40.1 MMOL/L (23.0-27.0); VENOUS O2 SATURATION 83.5 % (60.0-80.0); VENOUS PARTIAL PRESSURE O2 48.8 mmHg (30.0-50.0); VENOUS PH 7.253 UNITS (7.330-7.430); VENOUS STANDARD HCO3 32.7 MMOL/L
[2025-02-11 02:32] LABS: ALBUMIN 3.7 G/DL (3.2-5.2); ALKALINE PHOSPHATASE 56 U/L (35-104); ALT/SGPT 18 U/L (7.0-40); AST/SGOT 19 U/L (<34); BILIRUBIN,DIRECT 0.2 MG/DL (<0.4); BILIRUBIN,TOTAL 0.5 MG/DL (0.3-1.2); BLOOD UREA NITROGEN 11 MG/DL (9-23); CALCIUM LEVEL 9.1 MG/DL (8.3-10.6); CARBON DIOXIDE LEVEL > 40.0 MMOL/L (20-31); CHLORIDE LEVEL 93 MMOL/L (98-107); CK-MB VALUE MASS < 1.0 NG/ML (<3.6); CPK CREATINE PHOSPHOKINASE 40 U/L (34-145); CREATININE FOR GFR 0.52 MG/DL (0.55-1.30); GLOMERULAR FILTRATION RATE > 60.0 (>45); GLUCOSE, FASTING 165 MG/DL (74-106); POTASSIUM SERUM 4.3 MMOL/L (3.5-5.1); SODIUM LEVEL 140 MMOL/L (136-145); TOTAL PROTEIN 6.5 G/DL (5.7-8.2)
[2025-02-11 03:41] LABS: CPK CREATINE PHOSPHOKINASE 23 U/L (34-145)
[2025-02-11] MEDS ORDERED: DEXTROSE 50% 50ML SYRINGE IV PRN (03:50)
[2025-02-11] MEDS ORDERED: GLUCAGON INJ 1MG VIAL SC PRN (03:50)
[2025-02-11] MEDS ORDERED: GLUCOSE 4 GM CHEW PO PRN (03:50)
[2025-02-11 03:57] LABS: CK-MB VALUE MASS < 1.0 NG/ML (<3.6); MB/CK RELATIVE INDEX 4.34 (< OR =4)
[2025-02-11] MEDS: methylPREDNISolone 40MG 1ML VIAL IV SCH (05:09)
[2025-02-11 05:34] LABS: ABG BASE EXCESS 16.5 (-2.0-2.0); ABG O2 SATURATION 95.5 % (95.0-99.0); ABG PARTIAL PRESSURE O2 78.8 mmHg (75.0-100.0); ABG STANDARD HCO3 40.4 MMOL/L. (22.0-26.0); ABG pH (ARTERIAL) 7.304 UNITS (7.350-7.450)
[2025-02-11 05:37] LABS: ABG PARTIAL PRESSURE CO2 96.8 mmHg (35.0-45.0)
[2025-02-11] MEDS: cefTRIAXone SOD 2 GM in DEXTROSE 5% (D5W) ADV/MINI-BAG 50 ML IV SCH (05:37)
[2025-02-11 06:10] LABS: PROCALCITONIN 0.07 ng/ml
[2025-02-11] MEDS: INSULIN LISPRO (NovoLOG) PER UNIT SC SCH ×2 (07:30→20:57)
[2025-02-11] MEDS: IPRATROPIUM 0.5MG/ALBUTEROL 2.5MG INH SOL UD 3ML NEB SCH (08:34)
[2025-02-11] MEDS: SYMBICORT 160/4.5MCG INHALER 6GM INH SCH (08:34)
[2025-02-11] MEDS: NICOTINE 14 MG/24 HR TRANSDERMAL TD SCH (08:56)
[2025-02-11] MEDS: DOXYCYCLINE HYCLATE 100MG TABLET PO SCH (08:56)
[2025-02-11] MEDS: guaiFENesin 200 MG TAB PO SCH (08:56)
[2025-02-11] MEDS ORDERED: MM S100C PO (09:59)
[2025-02-11] MEDS ORDERED: FURO20TA2 PO (09:59)
[2025-02-11] MEDS ORDERED: PRED20TA PO (09:59)
[2025-02-11] MEDS ORDERED: METF-839 PO (09:59)
[2025-02-11] MEDS ORDERED: MUCI600T31 PO (09:59)
[2025-02-11] MEDS ORDERED: NICO7DIS5 TD (09:59)
[2025-02-11] MEDS ORDERED: HOME MED LIST COMPLETE! XX SCH (10:05)
[2025-02-11] MEDS: LIDOCAINE 5% (LIDODERM) PATCH TD SCH (10:38)
[2025-02-11] MEDS: PANTOPRAZOLE 40MG TAB (PROTONIX) PO SCH (10:38)
[2025-02-11] MEDS: BUDESONIDE 0.5 MG/2 ML INHALATION SUSPENSION INH PRN (19:30)
[2025-02-11] MEDS: GLYCOPYRROLATE INJ 0.2 MG/ML 2 ML VIAL NEB SCH (19:30)
[2025-02-11] MEDS: ROSUVASTATIN 10 MG TAB (CRESTOR) PO SCH (20:12)
[2025-02-11] MEDS: ACETAMINOPHEN 325 MG TAB PO PRN (20:13)
[2025-02-11] MEDS: guaiFENesin ER TABLET 600 MG TAB PO SCH (20:13)
[2025-02-11] MEDS: DOCUSATE SODIUM 100MG CAPSULE PO SCH (20:14)
[2025-02-12] VITALS (7 sets, daily range): BP systolic 99–133; BP diastolic 54–76; TEMP 96.9–98.1; O2SAT 90–97
[2025-02-12 04:21] LABS: VENOUS BASE EXCESS 16.2 (-2.0-2.0); VENOUS HCO3 45.1 MMOL/L (23.0-27.0); VENOUS O2 SATURATION 99.4 % (60.0-80.0); VENOUS PARTIAL PRESSURE CO2 81.8 mmHg (38.0-50.0); VENOUS PARTIAL PRESSURE O2 206.9 mmHg (30.0-50.0); VENOUS PH 7.359 UNITS (7.330-7.430); VENOUS STANDARD HCO3 40.2 MMOL/L; VENOUS TOTAL CO2 47.6 MMOL/L (24.0-28.0)
[2025-02-12 04:44] LABS: HEMATOCRIT 32.8 % (36.0-47.0); MEAN CORPUSCULAR HEMOGLOBIN 33.3 pg (27.0-33.0); MEAN CORPUSCULAR HGB CONC 31.4 g/dl (32.0-36.5); MEAN CORPUSCULAR VOLUME 106.1 fl (80.0-96.0); PLATELET COUNT, AUTOMATED 211 10^3/uL (150-450); RED BLOOD COUNT 3.09 10^6/uL (4.00-5.40); WHITE BLOOD COUNT 15.4 10^3/uL (4.0-10.0)
[2025-02-12 04:46] LABS: HEMOGLOBIN 10.3 g/dl (12.0-15.5)
[2025-02-12 04:54] LABS: BLOOD UREA NITROGEN 12 MG/DL (9-23); CALCIUM LEVEL 8.9 MG/DL (8.3-10.6); CARBON DIOXIDE LEVEL > 40.0 MMOL/L (20-31); CHLORIDE LEVEL 93 MMOL/L (98-107); CREATININE FOR GFR 0.42 MG/DL (0.55-1.30); GLOMERULAR FILTRATION RATE > 90.0 (>45); GLUCOSE, FASTING 305 MG/DL (74-106); MAGNESIUM LEVEL 1.9 MG/DL (1.8-2.4); POTASSIUM SERUM 4.1 MMOL/L (3.5-5.1); SODIUM LEVEL 140 MMOL/L (136-145)
[2025-02-12] MEDS: ENOXAPARIN 40MG/0.4ML SYRINGE (J1650 PER 10MG) SC SCH (08:32)
[2025-02-12] MEDS: FUROSEMIDE 20 MG TAB PO SCH (08:32)
[2025-02-12] MEDS: LanTUS (INSULIN GLARGINE INJ) 1 UNITS/0.01 ML SC SCH (08:33)
[2025-02-12] MEDS: NYSTATIN 500,000U/5ML SUSP UDC SS SCH (20:34)
[2025-02-13 04:58] VITALS: BP 110/67; TEMP 97.7; O2SAT 97
[2025-02-13 05:35] LABS: VENOUS BASE EXCESS 11.8 (-2.0-2.0); VENOUS HCO3 39.9 MMOL/L (23.0-27.0); VENOUS PARTIAL PRESSURE CO2 71.7 mmHg (38.0-50.0); VENOUS PARTIAL PRESSURE O2 164.9 mmHg (30.0-50.0); VENOUS PH 7.363 UNITS (7.330-7.430); VENOUS STANDARD HCO3 35.6 MMOL/L; VENOUS TOTAL CO2 42.1 MMOL/L (24.0-28.0)
[2025-02-13 05:41] LABS: BASO % 0.1 % (0.0-1.0); HEMATOCRIT 35.4 % (36.0-47.0); HEMOGLOBIN 10.6 g/dl (12.0-15.5); LYMPH # 0.7 10^3/uL (1.5-5.0); LYMPH % 4.2 % (24.0-44.0); MEAN CORPUSCULAR HEMOGLOBIN 32.3 pg (27.0-33.0); MEAN CORPUSCULAR HGB CONC 29.9 g/dl (32.0-36.5); MEAN CORPUSCULAR VOLUME 107.9 fl (80.0-96.0); MONO # 0.5 10^3/uL (0.0-0.8); MONO % 3.1 % (2.0-8.0); NEUTROPHILS # 14.1 10^3/uL (1.5-8.5); NEUTROPHILS % 91.7 % (36.0-66.0); PLATELET COUNT, AUTOMATED 223 10^3/uL (150-450); RED BLOOD COUNT 3.28 10^6/uL (4.00-5.40); WHITE BLOOD COUNT 15.3 10^3/uL (4.0-10.0)
[2025-02-13 06:07] LABS: BLOOD UREA NITROGEN 14 MG/DL (9-23); CALCIUM LEVEL 8.8 MG/DL (8.3-10.6); CARBON DIOXIDE LEVEL > 40.0 MMOL/L (20-31); CHLORIDE LEVEL 94 MMOL/L (98-107); CREATININE FOR GFR 0.41 MG/DL (0.55-1.30); GLOMERULAR FILTRATION RATE > 90.0 (>45); GLUCOSE, FASTING 246 MG/DL (74-106); POTASSIUM SERUM 4.3 MMOL/L (3.5-5.1); SODIUM LEVEL 140 MMOL/L (136-145)
[2025-02-13] MEDS: LanTUS (INSULIN GLARGINE INJ) 1 UNITS/0.01 ML SC SCH (08:27)
[2025-02-13 11:36] VITALS: BP 110/66; TEMP 97.5; O2SAT 98
[2025-02-13] MEDS: methylPREDNISolone 40MG 1ML VIAL IV SCH (17:01)
[2025-02-13 19:38] VITALS: BP 125/70; TEMP 98.9; O2SAT 92
[2025-02-13] MEDS ORDERED: LEVALBUTEROL 1.25 MG 0.5ML CONCENTRATE NEB INH PRN (20:05)
[2025-02-13] MEDS: ALPRAZolam 0.25 MG TAB PO ONE (20:31)
[2025-02-13 20:37] LABS: VENOUS BASE EXCESS 14.2 (-2.0-2.0); VENOUS HCO3 42.9 MMOL/L (23.0-27.0); VENOUS O2 SATURATION 71.3 % (60.0-80.0); VENOUS PARTIAL PRESSURE O2 37.3 mmHg (30.0-50.0); VENOUS PH 7.364 UNITS (7.330-7.430); VENOUS STANDARD HCO3 37.4 MMOL/L; VENOUS TOTAL CO2 45.3 MMOL/L (24.0-28.0)
[2025-02-13 20:57] LABS: D-DIMER QUANT < 0.27 ug/mL (<0.5); PARTIAL THROMBOPLASTIN TIME 22.2 SECONDS (24.8-34.2); PROTHROMBIN TIME 12.4 SECONDS (12.5-14.5)
[2025-02-13 21:05] LABS: CK-MB VALUE MASS 1.2 NG/ML (<3.6)
[2025-02-13 21:10] LABS: MB/CK RELATIVE INDEX 3.75 (< OR =4)
[2025-02-13 22:39] LABS: CK-MB VALUE MASS < 1.0 NG/ML (<3.6)
[2025-02-13 22:43] LABS: CPK CREATINE PHOSPHOKINASE 29 U/L (34-145); MB/CK RELATIVE INDEX 3.44 (< OR =4)
[2025-02-14] MEDS: IPRATROPIUM 0.5MG/ALBUTEROL 2.5MG INH SOL UD 3ML NEB SCH (02:46)
[2025-02-14 03:47] VITALS: BP_SYST 108; BP_SYST 112; BP_SYST 127; BP_DIAS 66; BP_DIAS 70; BP_DIAS 73; TEMP 98.1; O2SAT 93
[2025-02-14 05:50] LABS: BASO % 0.1 % (0.0-1.0); HEMATOCRIT 34.8 % (36.0-47.0); HEMOGLOBIN 10.6 g/dl (12.0-15.5); LYMPH # 0.8 10^3/uL (1.5-5.0); LYMPH % 7.6 % (24.0-44.0); MEAN CORPUSCULAR HEMOGLOBIN 32.5 pg (27.0-33.0); MEAN CORPUSCULAR HGB CONC 30.5 g/dl (32.0-36.5); MEAN CORPUSCULAR VOLUME 106.7 fl (80.0-96.0); MONO # 0.5 10^3/uL (0.0-0.8); MONO % 4.3 % (2.0-8.0); NEUTROPHILS # 9.4 10^3/uL (1.5-8.5); NEUTROPHILS % 86.1 % (36.0-66.0); PLATELET COUNT, AUTOMATED 198 10^3/uL (150-450); RED BLOOD COUNT 3.26 10^6/uL (4.00-5.40); WHITE BLOOD COUNT 10.9 10^3/uL (4.0-10.0)
[2025-02-14 06:48] LABS: BLOOD UREA NITROGEN 16 MG/DL (9-23); CALCIUM LEVEL 8.6 MG/DL (8.3-10.6); CARBON DIOXIDE LEVEL > 40.0 MMOL/L (20-31); CHLORIDE LEVEL 97 MMOL/L (98-107); CREATININE FOR GFR 0.47 MG/DL (0.55-1.30); GLOMERULAR FILTRATION RATE > 90.0 (>45); GLUCOSE, FASTING 158 MG/DL (74-106); POTASSIUM SERUM 4.1 MMOL/L (3.5-5.1); SODIUM LEVEL 145 MMOL/L (136-145)
[2025-02-14] MEDS: CEFDINIR 300 MG CAP (OMNICEF) PO SCH (08:33)
[2025-02-14] MEDS ORDERED: LORazepam 0.5 MG TAB PO PRN (10:55)
[2025-02-14 12:00] VITALS: BP 126/73; TEMP 97.5; O2SAT 96
[2025-02-14 19:40] VITALS: BP 128/73; TEMP 97.7; O2SAT 95
[2025-02-15] MEDS: DICLOFENAC EPOLAMINE 1.3% PATCH TOP SCH (01:15)
[2025-02-15 04:07] VITALS: BP 130/69; TEMP 97.5; O2SAT 92
[2025-02-15 05:54] LABS: BASO % 0.2 % (0.0-1.0); EOS % 0.1 % (0.0-3.0); HEMATOCRIT 34.4 % (36.0-47.0); HEMOGLOBIN 10.5 g/dl (12.0-15.5); LYMPH # 0.9 10^3/uL (1.5-5.0); LYMPH % 9.6 % (24.0-44.0); MEAN CORPUSCULAR HEMOGLOBIN 32.3 pg (27.0-33.0); MEAN CORPUSCULAR HGB CONC 30.5 g/dl (32.0-36.5); MEAN CORPUSCULAR VOLUME 105.8 fl (80.0-96.0); MONO # 0.5 10^3/uL (0.0-0.8); NEUTROPHILS # 7.7 10^3/uL (1.5-8.5); NEUTROPHILS % 81.2 % (36.0-66.0); PLATELET COUNT, AUTOMATED 188 10^3/uL (150-450); RED BLOOD COUNT 3.25 10^6/uL (4.00-5.40); WHITE BLOOD COUNT 9.5 10^3/uL (4.0-10.0)
[2025-02-15 06:14] LABS: BLOOD UREA NITROGEN 16 MG/DL (9-23); CALCIUM LEVEL 8.9 MG/DL (8.3-10.6); CARBON DIOXIDE LEVEL > 40.0 MMOL/L (20-31); CHLORIDE LEVEL 96 MMOL/L (98-107); CREATININE FOR GFR 0.43 MG/DL (0.55-1.30); GLOMERULAR FILTRATION RATE > 90.0 (>45); GLUCOSE, FASTING 172 MG/DL (74-106); POTASSIUM SERUM 4.2 MMOL/L (3.5-5.1); SODIUM LEVEL 144 MMOL/L (136-145)
[2025-02-15 12:00] VITALS: BP 124/69; TEMP 97.9; O2SAT 95
[2025-02-15] MEDS ORDERED: CALCIUM CARBONATE 500 MG CHEW U/D PO PRN (13:25)
[2025-02-15] MEDS: oxyCODONE 5MG TAB PO ONE (17:53)
[2025-02-15 19:53] VITALS: BP 120/68; TEMP 98.1; O2SAT 96
[2025-02-15] MEDS: predniSONE 20 MG TAB PO SCH (20:47)
[2025-02-16 04:10] VITALS: BP 113/62; TEMP 97.9; O2SAT 94
[2025-02-16 06:10] LABS: BASO % 0.3 % (0.0-1.0); EOS % 0.1 % (0.0-3.0); HEMATOCRIT 36.9 % (36.0-47.0); HEMOGLOBIN 11.5 g/dl (12.0-15.5); LYMPH # 0.5 10^3/uL (1.5-5.0); LYMPH % 4.7 % (24.0-44.0); MEAN CORPUSCULAR HGB CONC 31.2 g/dl (32.0-36.5); MEAN CORPUSCULAR VOLUME 105.7 fl (80.0-96.0); MONO # 0.3 10^3/uL (0.0-0.8); MONO % 2.5 % (2.0-8.0); NEUTROPHILS # 10.1 10^3/uL (1.5-8.5); NEUTROPHILS % 88.2 % (36.0-66.0); PLATELET COUNT, AUTOMATED 207 10^3/uL (150-450); RED BLOOD COUNT 3.49 10^6/uL (4.00-5.40); WHITE BLOOD COUNT 11.5 10^3/uL (4.0-10.0)
[2025-02-16 06:20] LABS: BLOOD UREA NITROGEN 14 MG/DL (9-23); CALCIUM LEVEL 8.7 MG/DL (8.3-10.6); CARBON DIOXIDE LEVEL > 40.0 MMOL/L (20-31); CHLORIDE LEVEL 94 MMOL/L (98-107); CREATININE FOR GFR 0.43 MG/DL (0.55-1.30); GLOMERULAR FILTRATION RATE > 90.0 (>45); GLUCOSE, FASTING 282 MG/DL (74-106); POTASSIUM SERUM 4.8 MMOL/L (3.5-5.1); SODIUM LEVEL 137 MMOL/L (136-145)
[2025-02-16 12:00] VITALS: BP 117/90; TEMP 98.2; O2SAT 95
[2025-02-16] MEDS: oxyCODONE 5MG TAB PO ONE (15:56)
[2025-02-16 20:42] VITALS: BP 121/97; TEMP 97.9; O2SAT 96
[2025-02-17 04:14] VITALS: BP 108/68; TEMP 97.9; O2SAT 91
[2025-02-17 06:10] LABS: BASO % 0.2 % (0.0-1.0); EOS % 0.1 % (0.0-3.0); HEMATOCRIT 33.7 % (36.0-47.0); HEMOGLOBIN 10.4 g/dl (12.0-15.5); LYMPH # 0.6 10^3/uL (1.5-5.0); LYMPH % 5.4 % (24.0-44.0); MEAN CORPUSCULAR HEMOGLOBIN 32.6 pg (27.0-33.0); MEAN CORPUSCULAR HGB CONC 30.9 g/dl (32.0-36.5); MEAN CORPUSCULAR VOLUME 105.6 fl (80.0-96.0); MONO # 0.3 10^3/uL (0.0-0.8); MONO % 2.7 % (2.0-8.0); NEUTROPHILS # 8.9 10^3/uL (1.5-8.5); NEUTROPHILS % 86.7 % (36.0-66.0); PLATELET COUNT, AUTOMATED 189 10^3/uL (150-450); RED BLOOD COUNT 3.19 10^6/uL (4.00-5.40); WHITE BLOOD COUNT 10.2 10^3/uL (4.0-10.0)
[2025-02-17 06:15] LABS: BLOOD UREA NITROGEN 16 MG/DL (9-23); CARBON DIOXIDE LEVEL > 40.0 MMOL/L (20-31); CHLORIDE LEVEL 93 MMOL/L (98-107); CREATININE FOR GFR 0.45 MG/DL (0.55-1.30); GLOMERULAR FILTRATION RATE > 90.0 (>45); GLUCOSE, FASTING 299 MG/DL (74-106); POTASSIUM SERUM 4.6 MMOL/L (3.5-5.1); SODIUM LEVEL 140 MMOL/L (136-145)
[2025-02-17] MEDS: predniSONE 20 MG TAB PO SCH (08:04)
[2025-02-17] MEDS ORDERED: PRED10TA2 PO (11:10)
[2025-02-17] MEDS ORDERED: NYST-38 SS (11:10)
[2025-02-17] MEDS ORDERED: CEFD300CAP PO (11:10)
[2025-02-17] MEDS ORDERED: DOXY100T PO (11:10)
[2025-02-17] MEDS ORDERED: OXYC-517 PO (14:12)
== END 2025-02-17 15:54 | disposition home health service (06) | DRG 189 ==
LOC: M ED 01:16 → M ED INP 04:35 → M ICU 07:28 → M MSPAV 02-12 14:40
PROVIDERS: ADMIT Internal Medicine Pulmonary Disease; ATTEND Internal Medicine Nephrology
DX: J96.21 Acute and chronic respiratory failure with hypoxia (principal); I50.32 Chronic diastolic (congestive) heart failure; J44.1 Chronic obstructive pulmonary disease with (acute) exacerbation; J96.22 Acute and chronic respiratory failure with hypercapnia; J43.9 Emphysema, unspecified; F17.210 Nicotine dependence, cigarettes, uncomplicated; G47.33 Obstructive sleep apnea (adult) (pediatric); K21.9 Gastro-esophageal reflux disease without esophagitis; F41.9 Anxiety disorder, unspecified; M54.9 Dorsalgia, unspecified; G89.29 Other chronic pain; J45.909 Unspecified asthma, uncomplicated; E11.9 Type 2 diabetes mellitus without complications; E78.5 Hyperlipidemia, unspecified; F32.A Depression, unspecified; Z79.84 Long term (current) use of oral hypoglycemic drugs; Z79.2 Long term (current) use of antibiotics; Z79.899 Other long term (current) drug therapy; Z91.040 Latex allergy status; Z91.018 Allergy to other foods; Z99.81 Dependence on supplemental oxygen; J20.9 Acute bronchitis, unspecified

== ENCOUNTER 2025-03-17 16:15 | Observation (INO) | payer MEDICARE ==
[~2025-03-17] VITALS: Ht 157.5 cm; Wt 65.3 kg
[~2025-03-17 16:15] MED LIST changes: +LIDO1ADH93 TD; -LIDO5DIS41 TD; +MM S100C PO; +NICO7DIS5 TD; +NYST-38 SS; +OXYC-517 PO
[2025-03-17 16:47] LABS: VENOUS BASE EXCESS 9.9 (-2.0-2.0); VENOUS HCO3 38.6 MMOL/L (23.0-27.0); VENOUS O2 SATURATION 83.6 % (60.0-80.0); VENOUS PARTIAL PRESSURE CO2 73.8 mmHg (38.0-50.0); VENOUS PARTIAL PRESSURE O2 46.9 mmHg (30.0-50.0); VENOUS PH 7.336 UNITS (7.330-7.430); VENOUS STANDARD HCO3 33.3 MMOL/L; VENOUS TOTAL CO2 40.8 MMOL/L (24.0-28.0)
[2025-03-17 16:58] LABS: BASO # 0.1 10^3/uL (0.0-0.2); BASO % 0.7 % (0.0-1.0); EOS # 0.1 10^3/uL (0.0-0.5); EOS % 0.8 % (0.0-3.0); HEMATOCRIT 37.8 % (36.0-47.0); HEMOGLOBIN 11.8 g/dl (12.0-15.5); LYMPH # 1.4 10^3/uL (1.5-5.0); LYMPH % 12.5 % (24.0-44.0); MEAN CORPUSCULAR HEMOGLOBIN 32.5 pg (27.0-33.0); MEAN CORPUSCULAR HGB CONC 31.2 g/dl (32.0-36.5); MEAN CORPUSCULAR VOLUME 104.1 fl (80.0-96.0); MONO # 0.6 10^3/uL (0.0-0.8); MONO % 5.6 % (2.0-8.0); NEUTROPHILS # 8.9 10^3/uL (1.5-8.5); NEUTROPHILS % 78.2 % (36.0-66.0); PLATELET COUNT, AUTOMATED 279 10^3/uL (150-450); RED BLOOD COUNT 3.63 10^6/uL (4.00-5.40); WHITE BLOOD COUNT 11.4 10^3/uL (4.0-10.0)
[2025-03-17] MEDS: methylPREDNISolone 125MG 2ML VIAL IV ONE (16:59)
[2025-03-17] MEDS: ASPIRIN 81MG CHEW TABLET PO ONE (16:59)
[2025-03-17] MEDS: IPRATROPIUM 0.5MG/ALBUTEROL 2.5MG INH SOL UD 3ML NEB PRN (17:03)
[2025-03-17 17:18] LABS: ALBUMIN 3.9 G/DL (3.2-5.2); ALKALINE PHOSPHATASE 64 U/L (35-104); ALT/SGPT 18 U/L (7.0-40); AST/SGOT 10 U/L (<34); BILIRUBIN,DIRECT 0.1 MG/DL (<0.4); BILIRUBIN,TOTAL 0.3 MG/DL (0.3-1.2); BLOOD UREA NITROGEN 7 MG/DL (9-23); CALCIUM LEVEL 9.1 MG/DL (8.3-10.6); CARBON DIOXIDE LEVEL 38 MMOL/L (20-31); CHLORIDE LEVEL 97 MMOL/L (98-107); CK-MB VALUE MASS < 1.0 NG/ML (<3.6); CPK CREATINE PHOSPHOKINASE 21 U/L (34-145); CREATININE FOR GFR 0.53 MG/DL (0.55-1.30); GLOMERULAR FILTRATION RATE > 90.0 (>45); GLUCOSE, FASTING 182 MG/DL (74-106); MB/CK RELATIVE INDEX 4.76 (< OR =4); POTASSIUM SERUM 4.2 MMOL/L (3.5-5.1); SODIUM LEVEL 142 MMOL/L (136-145); TOTAL PROTEIN 6.6 G/DL (5.7-8.2)
[2025-03-17] MEDS ORDERED: PRED5TA PO (18:08)
[2025-03-17] MEDS ORDERED: OXYC-517 PO (18:08)
[2025-03-17] MEDS ORDERED: MELO15TA28 PO (18:08)
[2025-03-17] MEDS ORDERED: HOME MED LIST COMPLETE! XX SCH (18:10)
[2025-03-17] MEDS ORDERED: ACETAMINOPHEN 325 MG TAB PO PRN (18:15)
[2025-03-17] MEDS ORDERED: LEVALBUTEROL 1.25 MG 0.5ML CONCENTRATE NEB NEB PRN (18:15)
[2025-03-17 18:45] LABS: CK-MB VALUE MASS < 1.0 NG/ML (<3.6)
[2025-03-17 18:50] LABS: CPK CREATINE PHOSPHOKINASE 29 U/L (34-145); MB/CK RELATIVE INDEX 3.44 (< OR =4)
[2025-03-17] MEDS ORDERED: GLUCOSE 4 GM CHEW PO PRN (19:00)
[2025-03-17] MEDS ORDERED: DEXTROSE 50% 50ML SYRINGE IV PRN (19:00)
[2025-03-17] MEDS ORDERED: GLUCAGON INJ 1MG VIAL SC PRN (19:00)
[2025-03-17 20:00] VITALS: O2SAT 91
[2025-03-17] MEDS: GLYCOPYRROLATE INJ 0.2 MG/ML 2 ML VIAL NEB SCH (20:00)
[2025-03-17 20:02] VITALS: BP 127/80; TEMP 96.8; O2SAT 91
[2025-03-17 20:07] LABS: INR 0.88; PARTIAL THROMBOPLASTIN TIME 26.3 SECONDS (24.8-34.2); PROTHROMBIN TIME 12.3 SECONDS (12.5-14.5)
[2025-03-17] MEDS: BUDESONIDE 0.5 MG/2 ML INHALATION SUSPENSION INH SCH (20:13)
[2025-03-17] MEDS: FORMOTEROL FUMARATE 20 MCG/2 ML INHALATION SOLUTION INH SCH (20:13)
[2025-03-17] MEDS: LEVALBUTEROL 1.25 MG 0.5ML CONCENTRATE NEB NEB SCH (20:13)
[2025-03-17] MEDS: guaiFENesin ER TABLET 600 MG TAB PO SCH (20:32)
[2025-03-17] MEDS: NICOTINE 14 MG/24 HR TRANSDERMAL TD SCH (20:32)
[2025-03-17] MEDS: AZITHROMYCIN 250MG TABLET PO SCH (20:32)
[2025-03-17] MEDS: oxyCODONE 5MG TAB PO PRN (20:35)
[2025-03-17] MEDS: LanTUS (INSULIN GLARGINE INJ) 1 UNITS/0.01 ML SC SCH (20:37)
[2025-03-17] MEDS: ROSUVASTATIN 10 MG TAB PO SCH (20:41)
[2025-03-17] MEDS: INSULIN LISPRO (NovoLOG) PER UNIT SC SCH (20:43)
[2025-03-17] MEDS: DOCUSATE SODIUM 100MG CAPSULE PO SCH (20:44)
[2025-03-18 03:31] VITALS: BP 97/59; TEMP 97.6; O2SAT 96
[2025-03-18 04:20] VITALS: BP 112/58
[2025-03-18] MEDS: methylPREDNISolone 125MG 2ML VIAL IV SCH (04:30)
[2025-03-18 05:56] LABS: HEMATOCRIT 33.5 % (36.0-47.0); HEMOGLOBIN 10.1 g/dl (12.0-15.5); MEAN CORPUSCULAR HEMOGLOBIN 31.7 pg (27.0-33.0); MEAN CORPUSCULAR HGB CONC 30.1 g/dl (32.0-36.5); PLATELET COUNT, AUTOMATED 250 10^3/uL (150-450); RED BLOOD COUNT 3.19 10^6/uL (4.00-5.40); WHITE BLOOD COUNT 10.4 10^3/uL (4.0-10.0)
[2025-03-18 06:24] LABS: ALBUMIN 3.2 G/DL (3.2-5.2); ALKALINE PHOSPHATASE 53 U/L (35-104); ALT/SGPT 12 U/L (7.0-40); AST/SGOT 9 U/L (<34); BILIRUBIN,TOTAL 0.2 MG/DL (0.3-1.2); BLOOD UREA NITROGEN 11 MG/DL (9-23); CALCIUM LEVEL 8.6 MG/DL (8.3-10.6); CARBON DIOXIDE LEVEL 40 MMOL/L (20-31); CHLORIDE LEVEL 97 MMOL/L (98-107); GLOMERULAR FILTRATION RATE > 90.0 (>45); GLUCOSE, FASTING 260 MG/DL (74-106); POTASSIUM SERUM 4.9 MMOL/L (3.5-5.1); SODIUM LEVEL 142 MMOL/L (136-145); TOTAL PROTEIN 5.7 G/DL (5.7-8.2)
[2025-03-18] MEDS: ENOXAPARIN 40MG/0.4ML SYRINGE (J1650 PER 10MG) SC SCH (08:51)
[2025-03-18] MEDS: LIDOCAINE 5% (LIDODERM) PATCH TD SCH (08:51)
[2025-03-18] MEDS: INSULIN LISPRO (NovoLOG) PER UNIT SC SCH (08:52)
[2025-03-18] MEDS: PANTOPRAZOLE 40MG TAB PO SCH (08:54)
[2025-03-18] MEDS: LanTUS (INSULIN GLARGINE INJ) 1 UNITS/0.01 ML SC SCH (09:01)
[2025-03-18] MEDS: MELOXICAM 7.5 MG TAB PO SCH (10:05)
[2025-03-19] MEDS ORDERED: FUROSEMIDE 20 MG TAB PO SCH (09:00)
== END 2025-03-18 12:14 | disposition home or self-care (01) ==
LOC: EDBD 16:15 → M ED 16:15 → M ED INP 16:16 → M MSPAV 19:52
PROVIDERS: ADMIT Internal Medicine; ATTEND Internal Medicine
DX: J44.1 Chronic obstructive pulmonary disease with (acute) exacerbation (principal); J96.11 Chronic respiratory failure with hypoxia; J96.12 Chronic respiratory failure with hypercapnia; J43.1 Panlobular emphysema; G47.33 Obstructive sleep apnea (adult) (pediatric); R07.89 Other chest pain; R00.0 Tachycardia, unspecified; E11.9 Type 2 diabetes mellitus without complications; I50.32 Chronic diastolic (congestive) heart failure; I11.0 Hypertensive heart disease with heart failure; F41.9 Anxiety disorder, unspecified; K21.9 Gastro-esophageal reflux disease without esophagitis; F17.200 Nicotine dependence, unspecified, uncomplicated; Z99.81 Dependence on supplemental oxygen; M54.9 Dorsalgia, unspecified; G89.29 Other chronic pain; Z82.49 Family history of ischemic heart disease and other diseases of the circulatory system; Z83.6 Family history of other diseases of the respiratory system; Z82.3 Family history of stroke; F17.210 Nicotine dependence, cigarettes, uncomplicated; Z91.040 Latex allergy status; Z91.018 Allergy to other foods; Z79.899 Other long term (current) drug therapy; Z79.51 Long term (current) use of inhaled steroids; Z79.84 Long term (current) use of oral hypoglycemic drugs; Z79.52 Long term (current) use of systemic steroids
CPT/HCPCS: 36415; 71045; 80048; 80053; 80076; 82550; 82553; 82803; 83605; 83880; 84484; 85025; 85027; 85610; 85730; 87040; 87486; 87581; 87633; 87798; 93005; 93041; 94640; 94660; 94760; 96372; 96374; 96376; 97116; 97161; 99285; G0378; J1596; J1650; J1815; J2919

== ENCOUNTER 2025-05-10 21:13 | Inpatient (IN) | payer MEDICARE, MEDICAID ==
[~2025-05-10] VITALS: Ht 162.6 cm; Wt 69.0 kg
[~2025-05-10 21:13] MED LIST changes: +AUGM500T34 PO; +BLOOTES VI; +FURO40TA2 PO; +JARD1TAB PO; +LANTINJ4 SC; +MELO15TA28 PO; +PRED5TA PO; +[UNRECOGNIZED DRUG - CODE] XX
[2025-05-10] MEDS: IPRATROPIUM 0.5 MG/ALBUTEROL 2.5 MG INH SOL UD 3 ML NEB PRN (21:51)
[2025-05-10 21:59] LABS: VENOUS BASE EXCESS 8.2 (-2.0-2.0); VENOUS HCO3 37.0 MMOL/L (23.0-27.0); VENOUS O2 SATURATION 97.2 % (60.0-80.0); VENOUS PARTIAL PRESSURE CO2 75.0 mmHg (38.0-50.0); VENOUS PARTIAL PRESSURE O2 97.3 mmHg (30.0-50.0); VENOUS PH 7.311 UNITS (7.330-7.430); VENOUS STANDARD HCO3 32.0 MMOL/L; VENOUS TOTAL CO2 39.3 MMOL/L (24.0-28.0)
[2025-05-10 22:14] LABS: BASO # 0.0 10^3/uL (0.0-0.2); BASO % 0.3 % (0.0-1.0); EOS # 0.1 10^3/uL (0.0-0.5); EOS % 0.7 % (0.0-3.0); LYMPH # 1.9 10^3/uL (1.5-5.0); LYMPH % 15.4 % (24.0-44.0); MONO # 0.8 10^3/uL (0.0-0.8); MONO % 6.4 % (2.0-8.0); NEUTROPHILS # 9.2 10^3/uL (1.5-8.5); NEUTROPHILS % 75.4 % (36.0-66.0); PLATELET COUNT, AUTOMATED 318 10^3/uL (150-450)
[2025-05-10 22:42] LABS: CK-MB VALUE MASS 1.3 NG/ML (<3.6)
[2025-05-10 22:43] LABS: CPK CREATINE PHOSPHOKINASE 22 U/L (34-145); MB/CK RELATIVE INDEX 5.90 (< OR =4)
[2025-05-10 22:45] LABS: ALT/SGPT 17 U/L (7.0-40); AST/SGOT 16 U/L (<34); CALCIUM LEVEL 9.2 MG/DL (8.3-10.6); CARBON DIOXIDE LEVEL > 40.0 MMOL/L (20-31); CHLORIDE LEVEL 98 MMOL/L (98-107); CREATININE FOR GFR 0.60 MG/DL (0.55-1.30); GLOMERULAR FILTRATION RATE > 90.0 (>45); POTASSIUM SERUM 4.1 MMOL/L (3.5-5.1); SODIUM LEVEL 148 MMOL/L (136-145)
[2025-05-10 23:21] LABS: CK-MB VALUE MASS 1.4 NG/ML (<3.6)
[2025-05-10 23:25] LABS: CPK CREATINE PHOSPHOKINASE 25.0 U/L (34-145); MB/CK RELATIVE INDEX 5.6 (< OR =4)
[2025-05-11] VITALS (22 sets, daily range): BP systolic 99–112; BP diastolic 50–74; TEMP 97–99; O2SAT 86–100
[2025-05-11] MEDS ORDERED: MAALOX 30 ML SUSP *UDC PO PRN (01:25)
[2025-05-11] MEDS ORDERED: GLUCOSE 4 GM CHEW PO PRN (01:25)
[2025-05-11] MEDS ORDERED: GLUCAGON INJ 1 MG VIAL SC PRN (01:25)
[2025-05-11] MEDS ORDERED: MOM 30 ML SUSPENSION UDC PO PRN (01:25)
[2025-05-11] MEDS ORDERED: DEXTROSE 50% 50 ML SYRINGE IV PRN (01:25)
[2025-05-11] MEDS: LR 1,000 ML IV SCH (02:03)
[2025-05-11 02:09] LABS: MAGNESIUM LEVEL 2.0 MG/DL (1.8-2.4)
[2025-05-11] MEDS: IPRATROPIUM 0.5 MG/ALBUTEROL 2.5 MG INH SOL UD 3 ML NEB SCH (02:53)
[2025-05-11 06:27] LABS: VENOUS BASE EXCESS 7.9 (-2.0-2.0); VENOUS HCO3 36.0 MMOL/L (23.0-27.0); VENOUS O2 SATURATION 98.0 % (60.0-80.0); VENOUS PARTIAL PRESSURE CO2 70.4 mmHg (38.0-50.0); VENOUS PARTIAL PRESSURE O2 106.8 mmHg (30.0-50.0); VENOUS PH 7.326 UNITS (7.330-7.430); VENOUS STANDARD HCO3 31.7 MMOL/L; VENOUS TOTAL CO2 38.1 MMOL/L (24.0-28.0)
[2025-05-11 06:39] LABS: PLATELET COUNT, AUTOMATED 230 10^3/uL (150-450)
[2025-05-11 07:13] LABS: ALT/SGPT 15 U/L (7.0-40); AST/SGOT 14 U/L (<34); CALCIUM LEVEL 9.4 MG/DL (8.3-10.6); CARBON DIOXIDE LEVEL 37 MMOL/L (20-31); CHLORIDE LEVEL 100 MMOL/L (98-107); CREATININE FOR GFR 0.47 MG/DL (0.55-1.30); GLOMERULAR FILTRATION RATE > 90.0 (>45); POTASSIUM SERUM 4.8 MMOL/L (3.5-5.1); SODIUM LEVEL 146 MMOL/L (136-145)
[2025-05-11] MEDS ORDERED: SYMBICORT 160/4.5MCG INHALER 6GM INH SCH (08:00)
[2025-05-11] MEDS: DOCUSATE SODIUM 100 MG CAPSULE PO SCH (08:05)
[2025-05-11] MEDS ORDERED: HOME MED LIST COMPLETE! XX SCH (08:10)
[2025-05-11] MEDS: INSULIN LISPRO (NovoLOG) PER UNIT SC SCH ×2 (08:14→21:00)
[2025-05-11] MEDS: PANTOPRAZOLE 40MG TAB PO SCH (08:14)
[2025-05-11] MEDS: predniSONE 20 MG TAB PO SCH (08:14)
[2025-05-11] MEDS: MELOXICAM 7.5 MG TAB PO SCH (09:00)
[2025-05-11] MEDS ORDERED: FUROSEMIDE 40 MG TAB PO SCH (09:00)
[2025-05-11] MEDS: ENOXAPARIN 40 MG/0.4 ML SYRINGE (J1650 PER 10MG) SC SCH (09:20)
[2025-05-11] MEDS: guaiFENesin ER TABLET 600 MG TAB PO SCH (09:21)
[2025-05-11] MEDS: NICOTINE 7 MG/24 HR TRANSDERMAL TD SCH (09:21)
[2025-05-11] MEDS: LanTUS (INSULIN GLARGINE INJ) 1 UNITS/0.01 ML SC SCH (09:22)
[2025-05-11] MEDS: BUDESONIDE 0.5 MG/2 ML INHALATION SUSPENSION NEB SCH (10:05)
[2025-05-11] MEDS: LEVALBUTEROL 1.25 MG 0.5ML CONCENTRATE NEB INH PRN (16:00)
[2025-05-11] MEDS: ROSUVASTATIN 10 MG TAB PO SCH (21:38)
[2025-05-12] VITALS (29 sets, daily range): BP systolic 96–115; BP diastolic 51–67; TEMP 97–98.4; O2SAT 91–100
[2025-05-12 06:51] LABS: PLATELET COUNT, AUTOMATED 215 10^3/uL (150-450)
[2025-05-12 07:23] LABS: ALT/SGPT 12 U/L (7.0-40); AST/SGOT 11 U/L (<34); CALCIUM LEVEL 9.1 MG/DL (8.3-10.6); CARBON DIOXIDE LEVEL > 40.0 MMOL/L (20-31); CHLORIDE LEVEL 100 MMOL/L (98-107); CREATININE FOR GFR 0.58 MG/DL (0.55-1.30); GLOMERULAR FILTRATION RATE > 90.0 (>45); MAGNESIUM LEVEL 2.0 MG/DL (1.8-2.4); POTASSIUM SERUM 3.7 MMOL/L (3.5-5.1); SODIUM LEVEL 144 MMOL/L (136-145)
[2025-05-12] MEDS: TIOTROPIUM BROM 2.5MCG/ACTUATION 4GM INH INH SCH (07:57)
[2025-05-12 08:38] LABS: ALT/SGPT 14 U/L (7.0-40); AST/SGOT 13 U/L (<34); CALCIUM LEVEL 9.3 MG/DL (8.3-10.6); CARBON DIOXIDE LEVEL 38 MMOL/L (20-31); CHLORIDE LEVEL 101 MMOL/L (98-107); CREATININE FOR GFR 0.58 MG/DL (0.55-1.30); GLOMERULAR FILTRATION RATE > 90.0 (>45); POTASSIUM SERUM 3.8 MMOL/L (3.5-5.1); SODIUM LEVEL 147 MMOL/L (136-145)
[2025-05-12] MEDS: FUROSEMIDE 40 MG TAB PO SCH (08:51)
[2025-05-12] MEDS: LIDOCAINE 5% PATCH TD SCH (08:52)
[2025-05-12] MEDS: ACETAMINOPHEN 325 MG TAB PO PRN (16:38)
[2025-05-12] MEDS: AZITHROMYCIN 250 MG TABLET PO SCH (18:07)
[2025-05-13] VITALS (11 sets, daily range): BP systolic 100–119; BP diastolic 56–71; TEMP 97.1–97.3; O2SAT 92–100
[2025-05-13 07:00] LABS: PLATELET COUNT, AUTOMATED 225 10^3/uL (150-450)
[2025-05-13 07:29] LABS: ALT/SGPT 15 U/L (7.0-40); AST/SGOT 12 U/L (<34); CALCIUM LEVEL 9.3 MG/DL (8.3-10.6); CARBON DIOXIDE LEVEL 38 MMOL/L (20-31); CHLORIDE LEVEL 97 MMOL/L (98-107); CREATININE FOR GFR 0.51 MG/DL (0.55-1.30); GLOMERULAR FILTRATION RATE > 90.0 (>45); POTASSIUM SERUM 4.6 MMOL/L (3.5-5.1); SODIUM LEVEL 143 MMOL/L (136-145)
[2025-05-13] MEDS ORDERED: FLUC150T9 PO (09:16)
[2025-05-13] MEDS ORDERED: HYDR1CRE30 TOP (09:16)
== END 2025-05-13 16:03 | disposition home or self-care (01) | DRG 189 ==
LOC: M ED 21:13 → EDBD 21:13 → M ED INP 21:14 → M ICU 05-11 09:06 → OBSVTOIN 05-11 10:42 → EEVIPCON 05-11 10:42 → M PCU 05-11 22:27
PROVIDERS: ADMIT Family Medicine; ATTEND Family Medicine
DX: J96.22 Acute and chronic respiratory failure with hypercapnia (principal); J44.1 Chronic obstructive pulmonary disease with (acute) exacerbation; I50.32 Chronic diastolic (congestive) heart failure; J96.21 Acute and chronic respiratory failure with hypoxia; J45.909 Unspecified asthma, uncomplicated; E11.9 Type 2 diabetes mellitus without complications; F17.210 Nicotine dependence, cigarettes, uncomplicated; G47.33 Obstructive sleep apnea (adult) (pediatric); K21.9 Gastro-esophageal reflux disease without esophagitis; F41.9 Anxiety disorder, unspecified; M54.9 Dorsalgia, unspecified; G89.29 Other chronic pain; Z99.81 Dependence on supplemental oxygen; Z79.4 Long term (current) use of insulin; Z79.52 Long term (current) use of systemic steroids; Z79.899 Other long term (current) drug therapy; Z88.8 Allergy status to other drugs, medicaments and biological substances; Z91.018 Allergy to other foods; Z91.040 Latex allergy status; L25.9 Unspecified contact dermatitis, unspecified cause; J43.1 Panlobular emphysema; I25.10 Atherosclerotic heart disease of native coronary artery without angina pectoris

== ENCOUNTER 2025-05-25 16:17 | Emergency (ER) | payer MEDICARE, MEDICAID ==
[~2025-05-25] VITALS: Ht 157.5 cm; Wt 70.0 kg
[~2025-05-25 16:17] MED LIST changes: +FLUC150T9 PO; +HYDR1CRE30 TOP
[2025-05-25 16:28] VITALS: TEMP 98.2
[2025-05-25 17:20] LABS: ALT/SGPT 20 U/L (7.0-40); AST/SGOT 16 U/L (<34); CALCIUM LEVEL 9.7 MG/DL (8.3-10.6); CARBON DIOXIDE LEVEL > 40.0 MMOL/L (20-31); CHLORIDE LEVEL 92 MMOL/L (98-107); CREATININE FOR GFR 0.67 MG/DL (0.55-1.30); GLOMERULAR FILTRATION RATE > 90.0 (>45); POTASSIUM SERUM 3.9 MMOL/L (3.5-5.1); SODIUM LEVEL 145 MMOL/L (136-145)
[2025-05-25 17:27] LABS: BASO # 0.0 10^3/uL (0.0-0.2); BASO % 0.3 % (0.0-1.0); EOS # 0.0 10^3/uL (0.0-0.5); EOS % 0.1 % (0.0-3.0); LYMPH # 1.2 10^3/uL (1.5-5.0); LYMPH % 8.0 % (24.0-44.0); MONO # 0.7 10^3/uL (0.0-0.8); MONO % 4.6 % (2.0-8.0); NEUTROPHILS # 13.3 10^3/uL (1.5-8.5); NEUTROPHILS % 85.6 % (36.0-66.0); PLATELET COUNT, AUTOMATED 301 10^3/uL (150-450)
[2025-05-25] MEDS ORDERED: DOCU100C16 PO (17:45)
[2025-05-25] MEDS ORDERED: SFHHYD1CR TOP (17:45)
[2025-05-25] MEDS ORDERED: CEFD1CAP9 PO (17:45)
[2025-05-25] MEDS ORDERED: HOME MED LIST COMPLETE! XX SCH (18:15)
[2025-05-25] MEDS: IPRATROPIUM 0.5 MG/ALBUTEROL 2.5 MG INH SOL UD 3 ML NEB PRN (18:26)
[2025-05-25] MEDS: ALPRAZolam 0.25 MG TAB PO ONE (18:36)
[2025-05-25 18:45] VITALS: BP 120/75
[2025-05-25 18:49] VITALS: O2SAT 98
[2025-05-25] MEDS ORDERED: IPRA0.00 INH (20:08)
[2025-05-25] MEDS ORDERED: AZIT-12 PO (20:10)
[2025-05-25] MEDS ORDERED: IPRATROPIUM 0.5 MG/ALBUTEROL 2.5 MG INH SOL UD 3 ML NEB ONE (20:15)
[2025-05-25] MEDS: AZITHROMYCIN 250 MG TABLET PO ONE (20:19)
[2025-05-25] MEDS: IPRATROPIUM 0.5 MG/ALBUTEROL 2.5 MG INH SOL UD 3 ML NEB ONE (20:20)
== END 2025-05-25 20:38 | disposition home or self-care (01) ==
LOC: M ED 16:17 → EDBD 16:17 → M ED 20:38
DX: J44.1 Chronic obstructive pulmonary disease with (acute) exacerbation (principal); F41.9 Anxiety disorder, unspecified; E11.9 Type 2 diabetes mellitus without complications; I50.9 Heart failure, unspecified; K21.9 Gastro-esophageal reflux disease without esophagitis; Z91.040 Latex allergy status; F17.200 Nicotine dependence, unspecified, uncomplicated; R00.0 Tachycardia, unspecified; Z79.4 Long term (current) use of insulin; Z79.899 Other long term (current) drug therapy

== ENCOUNTER 2025-06-05 18:19 | Inpatient (IN) | payer MEDICARE, MEDICAID ==
[~2025-06-05] VITALS: Ht 157.5 cm; Wt 68.1 kg
[~2025-06-05 18:19] MED LIST changes: -MUCU600T12 PO; -SERT25TA21 PO
[2025-06-05 19:00] LABS: BASO # 0.0 10^3/uL (0.0-0.2); BASO % 0.3 % (0.0-1.0); EOS # 0.0 10^3/uL (0.0-0.5); EOS % 0.2 % (0.0-3.0); LYMPH # 1.3 10^3/uL (1.5-5.0); LYMPH % 10.6 % (24.0-44.0); MONO # 0.7 10^3/uL (0.0-0.8); MONO % 5.9 % (2.0-8.0); NEUTROPHILS # 9.9 10^3/uL (1.5-8.5); NEUTROPHILS % 82.3 % (36.0-66.0); PLATELET COUNT, AUTOMATED 268 10^3/uL (150-450)
[2025-06-05] MEDS: IPRATROPIUM 0.5 MG/ALBUTEROL 2.5 MG INH SOL UD 3 ML NEB PRN (19:23)
[2025-06-05 19:27] LABS: CK-MB VALUE MASS 1.3 NG/ML (<3.6)
[2025-06-05 19:28] LABS: ALT/SGPT 25 U/L (7.0-40); AST/SGOT 23 U/L (<34); CALCIUM LEVEL 9.1 MG/DL (8.3-10.6); CARBON DIOXIDE LEVEL 34 MMOL/L (20-31); CHLORIDE LEVEL 97 MMOL/L (98-107); CREATININE FOR GFR 0.72 MG/DL (0.55-1.30); GLOMERULAR FILTRATION RATE > 90.0 (>45); POTASSIUM SERUM 3.5 MMOL/L (3.5-5.1); SODIUM LEVEL 143 MMOL/L (136-145)
[2025-06-05 19:30] LABS: CPK CREATINE PHOSPHOKINASE 31 U/L (34-145); MB/CK RELATIVE INDEX 4.19 (< OR =4)
[2025-06-05 19:34] LABS: VENOUS BASE EXCESS 9.1 (-2.0-2.0); VENOUS HCO3 36.4 MMOL/L (23.0-27.0); VENOUS O2 SATURATION 88.9 % (60.0-80.0); VENOUS PARTIAL PRESSURE CO2 62.6 mmHg (38.0-50.0); VENOUS PARTIAL PRESSURE O2 55.4 mmHg (30.0-50.0); VENOUS PH 7.382 UNITS (7.330-7.430); VENOUS STANDARD HCO3 32.6 MMOL/L; VENOUS TOTAL CO2 38.3 MMOL/L (24.0-28.0)
[2025-06-05] MEDS ORDERED: IPRATROPIUM 0.5 MG/ALBUTEROL 2.5 MG INH SOL UD 3 ML NEB PRN (20:55)
[2025-06-05] MEDS: INSULIN LISPRO (NovoLOG) PER UNIT SC SCH (21:00)
[2025-06-05 21:21] LABS: CK-MB VALUE MASS 1.6 NG/ML (<3.6)
[2025-06-05 21:23] LABS: ALT/SGPT 24.0 U/L (7.0-40); AST/SGOT 21.0 U/L (<34); CPK CREATINE PHOSPHOKINASE 29.0 U/L (34-145); MB/CK RELATIVE INDEX 5.51 (< OR =4)
[2025-06-05 22:54] VITALS: O2SAT 87
[2025-06-05] MEDS: ACETAMINOPHEN *IV* 1,000 MG in IV 1 EA IV ONE (23:48)
[2025-06-06] MEDS ORDERED: DEXTROSE 50% 50 ML SYRINGE IV PRN (00:25)
[2025-06-06] MEDS ORDERED: ACETAMINOPHEN 325 MG TAB PO PRN (00:25)
[2025-06-06] MEDS ORDERED: ALBUTEROL SULFATE 2.5 MG/0.5 ML INH CONCENTRATE NEB SOLN NEB PRN (00:25)
[2025-06-06] MEDS ORDERED: GLUCOSE 4 GM CHEW PO PRN (00:25)
[2025-06-06] MEDS ORDERED: GLUCAGON INJ 1 MG VIAL SC PRN (00:25)
[2025-06-06] MEDS ORDERED: ACETAMINOPHEN 500 MG TAB PO PRN (00:25)
[2025-06-06] MEDS ORDERED: MUCU600T12 PO (01:10)
[2025-06-06] MEDS ORDERED: SERT25TA21 PO (01:10)
[2025-06-06] MEDS ORDERED: HOME MED LIST COMPLETE! XX SCH (01:10)
[2025-06-06] MEDS ORDERED: IPRA0.00 INH (01:10)
[2025-06-06 01:24] LABS: PLATELET COUNT, AUTOMATED 246 10^3/uL (150-450)
[2025-06-06 01:38] LABS: INR 0.96
[2025-06-06] MEDS: cefTRIAXone SOD 1 GM in DEXTROSE 5% (D5W) ADV/MINI-BAG 50 ML IV SCH (01:49)
[2025-06-06 01:55] LABS: ALT/SGPT 22 U/L (7.0-40); AST/SGOT 18 U/L (<34); CALCIUM LEVEL 8.8 MG/DL (8.3-10.6); CARBON DIOXIDE LEVEL 36 MMOL/L (20-31); CHLORIDE LEVEL 95 MMOL/L (98-107); CREATININE FOR GFR 0.61 MG/DL (0.55-1.30); GLOMERULAR FILTRATION RATE > 90.0 (>45); MAGNESIUM LEVEL 2.1 MG/DL (1.8-2.4); POTASSIUM SERUM 3.5 MMOL/L (3.5-5.1); SODIUM LEVEL 142 MMOL/L (136-145)
[2025-06-06 01:59] LABS: MAGNESIUM LEVEL 2.0 MG/DL (1.8-2.4)
[2025-06-06] MEDS: IPRATROPIUM 0.5 MG/ALBUTEROL 2.5 MG INH SOL UD 3 ML NEB SCH ×2 (04:15→12:00)
[2025-06-06] MEDS: INSULIN LISPRO (NovoLOG) PER UNIT SC SCH (08:01)
[2025-06-06] MEDS: PANTOPRAZOLE 40MG TAB PO SCH ×2 (08:02→20:49)
[2025-06-06] MEDS: DOXYCYCLINE HYCLATE 100 MG TABLET PO SCH (08:02)
[2025-06-06] MEDS: NICOTINE 14 MG/24 HR TRANSDERMAL TD SCH (08:02)
[2025-06-06] MEDS: ENOXAPARIN 40 MG/0.4 ML SYRINGE (J1650 PER 10MG) SC SCH (08:02)
[2025-06-06] MEDS: SYMBICORT 160/4.5MCG INHALER 6GM INH SCH (08:03)
[2025-06-06 09:00] VITALS: BP 105/62; TEMP 97.2; O2SAT 94
[2025-06-06] MEDS ORDERED: CALCIUM CARBONATE 500 MG CHEW U/D PO PRN (11:05)
[2025-06-06] MEDS ORDERED: KETOROLAC 30 MG/ML 1 ML VIAL IV PRN (11:05)
[2025-06-06 11:50] VITALS: BP 105/62; TEMP 97.3; O2SAT 93
[2025-06-06] MEDS: ACETAMINOPHEN 500 MG TAB PO SCH (12:47)
[2025-06-06] MEDS: LanTUS (INSULIN GLARGINE INJ) 1 UNITS/0.01 ML SC SCH (12:48)
[2025-06-06] MEDS: guaiFENesin ER TABLET 600 MG TAB PO SCH (12:56)
[2025-06-06] MEDS: SERTRALINE HCL 25 MG TABLET PO SCH (12:56)
[2025-06-06 19:58] VITALS: BP 109/65; TEMP 97.3; O2SAT 95
[2025-06-06] MEDS: ROSUVASTATIN 10 MG TAB PO SCH (20:50)
[2025-06-07 03:46] VITALS: BP 109/69; TEMP 97.5; O2SAT 91
[2025-06-07 06:04] LABS: PLATELET COUNT, AUTOMATED 266 10^3/uL (150-450)
[2025-06-07 06:49] LABS: ALT/SGPT 18 U/L (7.0-40); AST/SGOT 17 U/L (<34); CALCIUM LEVEL 9.2 MG/DL (8.3-10.6); CARBON DIOXIDE LEVEL 40 MMOL/L (20-31); CHLORIDE LEVEL 96 MMOL/L (98-107); CREATININE FOR GFR 0.60 MG/DL (0.55-1.30); GLOMERULAR FILTRATION RATE > 90.0 (>45); MAGNESIUM LEVEL 2.2 MG/DL (1.8-2.4); POTASSIUM SERUM 4.2 MMOL/L (3.5-5.1); SODIUM LEVEL 145 MMOL/L (136-145)
[2025-06-07] MEDS: BUDESONIDE 0.5 MG/2 ML INHALATION SUSPENSION INH PRN (08:10)
[2025-06-07 12:00] VITALS: BP 130/78; TEMP 97.5; O2SAT 95
[2025-06-08 04:59] VITALS: BP 106/61; TEMP 97.9; O2SAT 98
[2025-06-08 09:12] LABS: BASO # 0.0 10^3/uL (0.0-0.2); BASO % 0.2 % (0.0-1.0); EOS # 0.0 10^3/uL (0.0-0.5); EOS % 0.0 % (0.0-3.0); LYMPH # 0.4 10^3/uL (1.5-5.0); LYMPH % 1.9 % (24.0-44.0); MONO # 0.2 10^3/uL (0.0-0.8); MONO % 0.7 % (2.0-8.0); NEUTROPHILS # 21.8 10^3/uL (1.5-8.5); NEUTROPHILS % 95.9 % (36.0-66.0); PLATELET COUNT, AUTOMATED 271 10^3/uL (150-450)
[2025-06-08 09:31] LABS: CALCIUM LEVEL 9.5 MG/DL (8.3-10.6); CARBON DIOXIDE LEVEL 38 MMOL/L (20-31); CHLORIDE LEVEL 97 MMOL/L (98-107); CREATININE FOR GFR 0.58 MG/DL (0.55-1.30); GLOMERULAR FILTRATION RATE > 90.0 (>45); POTASSIUM SERUM 4.1 MMOL/L (3.5-5.1); SODIUM LEVEL 142 MMOL/L (136-145)
[2025-06-08 12:00] VITALS: BP 121/62; TEMP 97.3; O2SAT 96
[2025-06-08] MEDS: NYSTATIN 500,000 UNITS/5 ML SUSP UDC SS SCH (12:55)
[2025-06-08] MEDS: IPRATROPIUM 0.5 MG/ALBUTEROL 2.5 MG INH SOL UD 3 ML NEB SCH (15:33)
[2025-06-08 20:00] VITALS: BP 121/64; TEMP 97.7; O2SAT 97
[2025-06-08] MEDS: LanTUS (INSULIN GLARGINE INJ) 1 UNITS/0.01 ML SC SCH (20:50)
[2025-06-09 05:03] VITALS: BP 143/81; TEMP 97.2; O2SAT 95
[2025-06-09 06:53] LABS: BASO # 0.0 10^3/uL (0.0-0.2); BASO % 0.1 % (0.0-1.0); EOS # 0.0 10^3/uL (0.0-0.5); EOS % 0.0 % (0.0-3.0); LYMPH # 0.6 10^3/uL (1.5-5.0); LYMPH % 3.9 % (24.0-44.0); MONO # 0.4 10^3/uL (0.0-0.8); MONO % 2.8 % (2.0-8.0); NEUTROPHILS # 13.7 10^3/uL (1.5-8.5); NEUTROPHILS % 91.1 % (36.0-66.0); PLATELET COUNT, AUTOMATED 224 10^3/uL (150-450)
[2025-06-09 07:36] LABS: CALCIUM LEVEL 8.9 MG/DL (8.3-10.6); CARBON DIOXIDE LEVEL > 40.0 MMOL/L (20-31); CHLORIDE LEVEL 100 MMOL/L (98-107); CREATININE FOR GFR 0.50 MG/DL (0.55-1.30); GLOMERULAR FILTRATION RATE > 90.0 (>45); POTASSIUM SERUM 4.2 MMOL/L (3.5-5.1); SODIUM LEVEL 145 MMOL/L (136-145)
[2025-06-09 12:00] VITALS: BP 147/86; TEMP 97.5; O2SAT 97
[2025-06-09] MEDS ORDERED: HYDR-3363 PO (15:14)
[2025-06-09] MEDS ORDERED: NYST-38 SS (15:49)
== END 2025-06-09 16:38 | disposition home or self-care (01) | DRG 191 ==
LOC: M ED 18:19 → M ED INP 23:54 → M MSPAV 06-06 09:01
PROVIDERS: ADMIT Internal Medicine; ATTEND Internal Medicine
DX: J44.1 Chronic obstructive pulmonary disease with (acute) exacerbation (principal); J96.12 Chronic respiratory failure with hypercapnia; J96.11 Chronic respiratory failure with hypoxia; I50.32 Chronic diastolic (congestive) heart failure; E11.65 Type 2 diabetes mellitus with hyperglycemia; J45.909 Unspecified asthma, uncomplicated; G47.33 Obstructive sleep apnea (adult) (pediatric); I25.10 Atherosclerotic heart disease of native coronary artery without angina pectoris; F41.0 Panic disorder [episodic paroxysmal anxiety]; G89.29 Other chronic pain; M54.9 Dorsalgia, unspecified; J43.9 Emphysema, unspecified; K21.9 Gastro-esophageal reflux disease without esophagitis; F17.210 Nicotine dependence, cigarettes, uncomplicated; R26.2 Difficulty in walking, not elsewhere classified; R25.1 Tremor, unspecified; R53.1 Weakness; Z99.81 Dependence on supplemental oxygen; Z79.4 Long term (current) use of insulin; Z79.52 Long term (current) use of systemic steroids; Z79.1 Long term (current) use of non-steroidal anti-inflammatories (NSAID); Z88.8 Allergy status to other drugs, medicaments and biological substances; Z91.018 Allergy to other foods; Z91.040 Latex allergy status

== ENCOUNTER → 2025-06-05 | Outpatient (REF) | payer MEDICARE, MEDICAID ==
[~2025-06-05] MED LIST changes: +DOCU100C16 PO; +MUCU600T12 PO; +SERT25TA21 PO; +SFHHYD1CR TOP
[2025-06-05 11:35] LABS: CHOLESTEROL LEVEL 119.0 MG/DL (<200); CHOLESTEROL RISK RATIO 2.5 (<5); ESTIMATED AVERAGE GLUCOSE 151.0 MG/DL (60-110); LDL CHOLESTEROL 48.5 MG/DL (<100); NON-HDL-C 71.5 MG/DL; TRIGLYCERIDES LEVEL 115.0 MG/DL (<150)
== END ==
LOC: M LAB REF 10:39
PROVIDERS: ATTEND Family Medicine Addiction Medicine
DX: E11.9 Type 2 diabetes mellitus without complications (principal)